=== PATIENT | female | born 1960 | race Caucasian/White ===

== ENCOUNTER 2016-11-20 10:56 | Inpatient (IN) ==
[2016-11-20] MEDS ORDERED: SODIUM CHLORIDE 0.9% 1,000 ML IV STA ×2 (11:51→12:14)
--- NOTE | 2016-11-20 12:02 | EKG Report ---
Stationary ECG Study [facility] ER Test Date: 11/20/2016 12:01:46 PM Pat Name: MALOU MÉNDEZ Department: Room: Gender: F Care Aid: : 1960 Requested by: Wyatt Reyes Order Number: [id number] Reading MD: MAYA MICHAEL Intervals [place] Rate: 78 P: 999 OK: 0 QRS: 146 QRSD: 214 T: 6 QT: 493 QTc: 527 Interpretive Statements ELECTRONIC VENTRICULAR PACEMAKER FREQUENT VPCs Electronically Signed On 11-23-16 13:46:34 CDT by MAYA MICHAEL [id number]
[2016-11-20 12:11] LABS: Basophils # 0.1 10*3/uL (0.0-0.2); Basophils % 0.7 % (0.0-0.8); Eosinophils # 0.1 10*3/uL (0.0-0.87); Eosinophils % 0.8 % (0.00-10.9); Hematocrit 41.5 VOL% (35.7-47.0); Hemoglobin 13.8 GM/DL (12.0-16.0); Immature Granulocytes % 0.5 %; Immature Granulocytes Absolute 0.04 #; Lymphocytes % 26.9 % (21.3-54.2); Mean Corpuscular HGB Conc 33.3 GM/DL (32-36); Mean Corpuscular Hemoglobin 29 PG (27-34); Mean Corpuscular Volume 88.3 FL (87-102); Mean Platelet Volume 13.3 FL (9.6-12.0); Monocytes # 0.6 10*3/uL (0.11-0.8); Monocytes % 7.5 % (1.7-12.7); NRBC # 0.06 10*3/uL; Neutrophils # 4.7 10*3/uL (1.4-7.4); Neutrophils % 63.6 % (38.7-73.9); Platelet Count 155 T/CUMM (130-400); Red Cell Distribution Width 19.1 % (9.3-17.3); White Blood Count 7.4 T/CUMM (4-12)
--- NOTE | 2016-11-20 12:15 | Emergency Department Note ---
Medina Mac Hilary, am scribing for, and in the presence of, Gregory Brooks MD 12: 01. Cecilia Mac James D, MD, personally performed the services described in this documentation, ascribed by Yani Haney in my presence, and it is both accurate and complete . Arrival - Arrival Chief Complaint: Altered Mental Status Stated Complaint: confusion,disoriented,CHF ED Nursing Triage Note: PER FAMILY PT HAS BEEN CONFUSED, REPETITIVE QUESTIONS AND WEAK FOR PAST SEVERAL DAYS, PT DENIES PAIN OR DISCOMFORT Mode of Arrival: Wheelchair Limitations: No Limitations Source: Patient, RN Notes Reviewed Time Seen by Provider: 11/20/16 11:51 - History of Present Illness HPI Narrative: Pt is a 56 y/o white female presenting to the ED with c/o confusion which onset 2 weeks ago. Her daughter is in the room and states that two weeks ago she started noticing that her mom was not making sense on the phone and forgetting what she was saying or what day it was. Pt confirms confusion but denies dysuria or vomiting. Pt has a PMHx of CHF. No other complaints or problems stated in the ED. Onset (ago): week(s) Allergies/Adverse Reactions: Allergies Allergy/AdvReac Type Severity Reaction Status Date / Time meperidine [From Demerol] AdvReac ANAPHYLAXIS Verified 11/20/16 11:16 Penicillins AdvReac ANAPHYLAXIS Verified 11/20/16 11:16 Home Medications: Home Medications Medication Instructions Recorded Confirmed Type Furosemide Tab [Lasix Tab] 20 mg PO BID DIURETIC #14 tablet 07/20/16 11/20/16 Rx Apixaban [Eliquis] 5 mg PO BID 11/20/16 11/20/16 History Carvedilol [Carvedilol] 25 mg PO BID 11/20/16 11/20/16 History Hydrocodone/Acetaminophen 1 tablet PO BID 11/20/16 11/20/16 History [Hydrocodon-Acetaminophn 10-325] LORazepam [Lorazepam] 1 mg PO TID 11/20/16 11/20/16 History Quetiapine Fumarate [Quetiapine 300 mg PO BEDTIME 11/20/16 11/20/16 History Fumarate] Quinapril HCl 40 mg PO DAILY 11/20/16 11/20/16 History Venlafaxine [Effexor] 225 mg PO DAILY 11/20/16 11/20/16 History Review of System - Review of System 12 point system: reviewed and no additional remarkable complaints except as stated - Review of System Constitutional: Present: other (confusion). Absent: fever Gastrointestinal: Absent: vomiting Genitourinary female: Absent: dysuria Medical,Surgical,& Family Hx - Medical History Cardio: History of: CHF - Social History Smoking Status: Current every day smoker Exam Physical Examination: GENERAL: This is a well-nourished, well-developed in no apparent distress. VITAL SIGNS: Temperature: 98 Pulse: 93 Respiratory: 18 Blood Pressure: 85/ 44 O2Sat: 98 HEENT: Head is normocephalic and atraumatic. Pupils are equally round and reactive to light. Extraocular movement are intact. Oropharynx is benign with moist mucous membranes. NECK: Neck is soft and supple without tenderness. There are no masses. There is no lymphadenopathy. LUNGS: Lungs are clear to auscultation bilaterally. Chest rises symmetrically. There is no chest wall tenderness. CV: Heart is regular rate and irregular rhythm but bradycardic without murmurs, rubs, or gallops. ABDOMEN: Abdomen is soft, non-tender to palpation. There are no abnormal masses palpated. There is no organomegaly. Bowel sounds are present and active. SKIN: Skin is warm and dry. No rash. EXTREMITIES: Patient has full range of motion without tenderness. There is no pedal edema. NEUROLOGIC: Awake, alert, and oriented x4. Cranial nerves II through XII are grossly intact. There are no motorsensory deficits. PSYCHIATRIC: Normal affect. Normal mood. Vital Signs: Vital Signs Temperature 98.0 F 11/20/16 11:29 Pulse Rate 34 L 11/20/16 12:30 Respiratory Rate 28 H 11/20/16 12:30 Blood Pressure 83/58 11/20/16 12:30 O2 Sat by Pulse Oximetry 100 11/20/16 12:30 Course - Consultations Consultation #1: Discussed with hospitalist. Patient will be admitted to their service. Time: 12:56 Results - Labs CBC & BMP: 11/20/16 11:57 11/20/16 11:57 Lab Results: I have reviewed the patients labs Labs: Laboratory Tests 11/20/16 12:19 Urine Color Anisa Urine Appearance Slightly hazy Urine Bilirubin Small H Urine Urobilinogen 4.0 H Laboratory Tests 11/20/16 11:57 Sodium 132 L Potassium 5.2 H Chloride 98 Carbon Dioxide 20 L Anion Gap 19.2 H BUN 32 H Creatinine 1.70 H Calculated Osmolality 269.5 L Total Bilirubin 3.40 H AST 137 H ALT 181 H Total Creatine Kinase 306 H CK-MB (CK-2) 9.0 H Total Protein 6.0 L Laboratory Tests 11/20/16 12:19 Urine Opiates Screen Positive H U Cannabinoids Screen Positive H Laboratory Tests 11/20/16 11/20/16 11:57 11:57 WBC 7.4 RBC 4.70 Hgb 13.8 Hct 41.5 RDW 19.1 H MPV 13.3 H Sodium 132 L Potassium 5.2 H Chloride 98 Carbon Dioxide 20 L Anion Gap 19.2 H BUN 32 H Creatinine 1.70 H Calculated Osmolality 269.5 L Total Bilirubin 3.40 H AST 137 H ALT 181 H Total Creatine Kinase 306 H CK-MB (CK-2) 9.0 H Troponin I 0.020 Total Protein 6.0 L Laboratory Tests 11/20/16 13:30 ABG pCO2 25.5 L ABG pO2 130.0 H ABG HCO3 16.6 L ABG Total CO2 12.6 L ABG Base Excess -9.9 L - Diagnostic Findings Procedure: Chest x-ray: report reviewed by me (Cardiomegaly without overt CHF. No acute process otherwise. Pacemaker device as before), CT: report reviewed by me (Head: No acute intracranial abnormality is identified. Diffuse atrophy with microvascular disease. Minimal left ethmoid sinusitis) Disposition Clinical Impression: Altered mental status, Polysubstance abuse, Elevated LFTs Case discussed with: patient Disposition: Still a Patient Condition: Stable
[2016-11-20 12:26] LABS: Apearance,Urine Slightly Hazy (Clear); Bacteria,Urine Occasional /HPF (Few); Bilirubin,Urine Small mg/dL (Negative); Blood, Urine Negative (Negative); Glucose,Urine (UA) Negative (Negative); Hyaline Casts,Urine 207 /LPF (0-3); Ketones,Urine 5 mg/dL (Negative); Mucus,Urine Occasional /LPF (Occasional); Nitrite,Urine Negative (Negative); Protein,Urine 100 MG/DL; RBC,Urine 5 /HPF (0-4); Squamous Epithelial Cell,Urine Occasional /HPF (0-10); Urine Color Amber (Yellow); Urine Specific Gravity 1.021 (1.001-1.035); WBC,Urine 4 /HPF (0-6)
--- NOTE | 2016-11-20 12:33 | CT Report ---
Referring physician: Gregory Brooks Exam: CT brain without contrast Date: 11/20/2016 Comparison: None Reason: Alteration of consciousness Technique: Axial images of the head were obtained without the use of contrast. Total DLP was 1073.10 mGy*cm. Findings: No hydrocephalus or midline shift is present. There is no evidence of an acute infarction, recent intracranial hemorrhage or abnormal mass effect. Diffuse atrophy and cerebral hypodensities. The osseous structures appear intact. The mastoid air cells are clear. Interval polypoidal mucosal findings in the left ethmoid air cells. Impression: No acute intracranial abnormality is identified. Diffuse atrophy with microvascular disease. Minimal left ethmoid sinusitis. The CT exam was performed using one or more of the following dose reduction techniques: Automated exposure control and adjustment of the mA and/or kV according to patient size. PROCEDURE INTERPRETED AT [facility] DEPARTMENT OF RADIOLOGY Final Report Signed by: Dr. Demi Zamorano
--- NOTE | 2016-11-20 12:41 | XRay Report ---
History: Smoker Date: 11/20/2016 Study: Chest x-ray single view Comparison exam: July 20, 2016 chest x-ray There is cardiomegaly. There is no mediastinal mass. The pulmonary vasculature is not engorged. A left subclavian dual-lead transvenous pacemaker is in place. The lungs and pleural spaces are generally clear. Osseous structures are unchanged. Impression: Cardiomegaly without overt CHF. No acute process otherwise. Pacemaker device as before PROCEDURE INTERPRETED AT [facility] DEPARTMENT OF RADIOLOGY Final Report Signed by: Dr. Philly Aleman
[2016-11-20 12:43] LABS: Albumin 3.5 G/DL (3.4-5.0); Bilirubin,Total 3.4 MG/DL (0.2-1.0); CKMB % 2.9 %; Calcium 9.3 MG/DL (8.5-10.1); Osmolality,Calculated 269.5 MOS/KG (273-304); Potassium 5.2 MMOL/L (3.5-5.1); Troponin I Only 0.02 NG/ML (0.00-0.045)
[2016-11-20 12:49] LABS: Barbiturates Screen,Urine Negative (Negative); Benzodiazepines Screen,Urine Negative (Negative); Cannabinoid Screen,Urine Positive (Negative); Opiate Screen,Urine Positive (Negative); Phencyclidine Screen,Urine Negative (Negative)
[2016-11-20 13:45] LABS: ABG Base Excess -9.9 MMOL/L (-2.5-2.5); ABG HCO3 16.6 MMOL/L (20-26); ABG PCO2 25.5 MM HG (35-48); ABG PH 7.353 (7.35-7.45); ABG TCO2 12.6 MMOL/L (23-27)
--- NOTE | 2016-11-20 14:15 | Hospitalist History & Physical ---
<Brenda Reyes - Last Filed: 11/20/16 14:20> Assessment and Plan (1) Hyperkalemia Status: Acute Assessment and plan: Potassium level noted at 5.2 at the time of admission. We will recheck in a.m. Current Visit: Yes (2) Altered mental status Status: Acute Assessment and plan: CT of the head was essentially negative. I think that this is strictly related to the mismanagement of her medications. In addition the patient did test positive for cannabis. The family reported that the patient does administer home medications as sometimes forgets which medicines that she has taken. Either way we will monitor and adjust medications as needed. We will hold all sedative agents until altered mental status improved Current Visit: Yes (3) Elevated LFTs Status: Acute Assessment and plan: LFTs were elevated at the time of admission. It is unsure whether the patient actually drinks. There may be a component of alcohol abuse that is contributing to this. Current Visit: Yes History of Present Illness Chief complaint: Altered mental status History of present illness: This is a very pleasant 56-year-old female that presented to the ED at [facility] this afternoon for evaluation of altered mental status. The patient has a medical history significant for congestive heart failure, anxiety, nicotine addiction,chronic pain,and depression. The patient reports no surgical history. The patient was brought in by her family who reports that the patient holliday has experienced an onset of confusion which started about 2 weeks ago. The family noticed a gradual change in her mentation when she started forgetting things and making repetitive statements. The family is at bedside. They report that the patient lives with her daughter however the daughter is never at home. At the time of ED presentation the patient was mildly hypotensive with the blood pressure noted at 83/58, and a fluid bolus was given. The patient's blood pressure responded appropriately. Labs were obtained which reported a sodium of 132, potassium 5.2, CO2 at 20, BUN is 32, AST of 137, ALT of 181, total bilirubin at 3.40 and creatinine at 1.7. Arterial blood gases were obtained which reported a pH at 7.353, PCO2 at 25.5, PO2 at 130, HC03 at 16.6. Cardiac enzymes were obtained which reported a total CK at 306, CK-MB at 9.0, and troponin at 0.020. Urinalysis was obtained which reported a small amount of bilirubin and urine urobilinogen at 4.0 Urine toxicology was obtained which reported positive findings of opioids and cannabinoids. After brief discussion with both Dr. Brooks and Dr. Villarreal, the patient will be admitted to the hospitalist services for continuation of care. Home Medications Medication Instructions Recorded Confirmed Type Furosemide Tab [Lasix Tab] 20 mg PO BID DIURETIC #14 tablet 07/20/16 11/20/16 Rx Apixaban [Eliquis] 5 mg PO BID 11/20/16 11/20/16 History Carvedilol [Carvedilol] 25 mg PO BID 11/20/16 11/20/16 History Hydrocodone/Acetaminophen 1 tablet PO BID 11/20/16 11/20/16 History [Hydrocodon-Acetaminophn 10-325] LORazepam [Lorazepam] 1 mg PO TID 11/20/16 11/20/16 History Quetiapine Fumarate [Quetiapine 300 mg PO BEDTIME 11/20/16 11/20/16 History Fumarate] Quinapril HCl 40 mg PO DAILY 11/20/16 11/20/16 History Venlafaxine [Effexor] 225 mg PO DAILY 11/20/16 11/20/16 History Allergies Allergy/AdvReac Type Severity Reaction Status Date / Time meperidine [From Demerol] AdvReac ANAPHYLAXIS Verified 11/20/16 11:16 Penicillins AdvReac ANAPHYLAXIS Verified 11/20/16 11:16 Medical,Surgical,& Family Hx - Medical History Cardio: History of: CHF - Social History Smoking Status: Current every day smoker Exam - Constitutional Vitals: Period Temp Pulse Resp BP Sys/Morse Pulse Ox Last 24 Hr 98 F-98.0 F 34-93 12-28 55-103/44-69 87-100 General appearance: normal weight, no acute distress - Head Head exam: Present: normal inspection, normocephalic, atraumatic - Eye Eye exam: Present: EOMI. Absent: conjunctival injection Pupils: Present: REMBERTO, normal accommodation - ENT ENT exam: Present: normal exam, normal external ear exam, normal oropharynx - Neck Neck exam: Present: normal inspection. Absent: lymphadenopathy, meningismus, tenderness, thyromegaly - Respiratory Respiratory exam: Present: clear to auscultation bilaterally. Absent: rales, rhonchi, stridor, wheezes - Cardiovascular Cardiovascular exam: Present: bradycardia, regular rate and rhythm - GI/Abdominal GI/Abdominal exam: Present: normal bowel sounds, soft - Extremities Exam Extremities exam: Present: normal inspection, normal capillary refill, full ROM. Absent: edema - Back Exam Back exam: Present: normal inspection - Neurological Exam Neurological exam: Present: alert, oriented X3 - Psychiatric Psychiatric exam: Present: normal affect, normal mood - Skin Skin exam: Present: normal color, warm, dry Results - Labs CBC & BMP: 11/20/16 11:57 11/20/16 11:57 Lab Results: I have reviewed the past 24 hour labs <AnaraFaraz - Last Filed: 11/20/16 14:51> History of Present Illness History of present illness: Ms. Hall is a 56 year old female Exam - Constitutional Vitals: Period Temp Pulse Resp BP Sys/Morse Pulse Ox Last 24 Hr 98 F-98.0 F 34-93 12-28 55-103/44-69 87-100 Results - Labs CBC & BMP: 11/20/16 11:57 11/20/16 11:57
[2016-11-20 17:14] LABS: Hepatitis A Ab IgM Quant 0.07 Index; Hepatitis A Ab IgM Result Negative (Negative); Hepatitis B Core IgM Quant 0.18 Index; Hepatitis B Core IgM Result Negative (Negative); Hepatitis B Surface Ag Quant 0.22 Index; Hepatitis B Surface Ag Result Negative (Negative); Hepatitis C Virus Ab Quant 0.14 Index; Hepatitis C Virus Ab Result Negative (Negative)
--- NOTE | 2016-11-20 19:02 | Ultrasound Report ---
Exam: US abdomen Date:11/20/2016 2:49 PM Indication: Abdominal pain Comparison: None Findings: Liver: 18.3 cm. Liver margin is slightly irregular. There are no focal lesions identified. Hepatic and portal veins appear patent with normal direction of flow. Gallbladder: Extensive sludge/echogenic debris noted throughout the gallbladder lumen. Gallbladder wall is not thickened. There are no definite stones visualized. There is no pericholecystic fluid. Sonographic Hill sign is reportedly negative. CBD: Common bile duct measures 0.47 cm Pancreas: Visualized portion appears unremarkable. Kidneys Right kidney measures 9.2 x 2.8 x 3.6 cm. Left kidney measures 8.4 x 3.8 x 2 point centimeters. There is no hydronephrosis bilaterally. Minimal nonspecific perinephric fluid is suggested adjacent to the left kidney. No suspicious lesions are identified. Renal cortical echogenicity and thickness appear within normal limits. Aorta IVC: IVC is patent. Abdominal aorta is nonaneurysmal measuring up to 1.2 cm diameter. Spleen: 7.5 cm maximum dimension with no focal lesions. Impression: 1. No acute sonographic abnormality in the abdomen. 2. Extensive echogenicity throughout the gallbladder lumen likely representing sludge and/or microstones. No sonographic evidence of acute cholecystitis. 3. Minimal left perinephric fluid is of uncertain significance. Correlate with urinalysis. No hydronephrosis. PROCEDURE INTERPRETED AT [facility] DEPARTMENT OF RADIOLOGY Final Report Signed by: Agustín Cyr
[2016-11-20] MEDS ORDERED: SODIUM CHLORIDE 0.9% 1,000 ML IV ONE (22:56)
[2016-11-20] MEDS ORDERED: PROMETHAZINE 25 MG TABLET PO PRN (22:56)
[2016-11-20] MEDS ORDERED: ACETAMINOPHEN 325 MG TABLET PO PRN (22:56)
[2016-11-20] MEDS ORDERED: ONDANSETRON 4 MG/2 ML VIAL IV PRN (22:56)
[2016-11-20 23:51] LABS: Basophils % 0.1 % (0.0-0.8); Eosinophils % 0.1 % (0.00-10.9); Hematocrit 39.5 VOL% (35.7-47.0); Immature Granulocytes % 0.6 %; Immature Granulocytes Absolute 0.05 #; Lymphocytes # 1.4 10*3/uL (1.4-4.0); Lymphocytes % 18.4 % (21.3-54.2); Mean Corpuscular HGB Conc 32.9 GM/DL (32-36); Mean Corpuscular Hemoglobin 30 PG (27-34); Mean Corpuscular Volume 90.2 FL (87-102); Mean Platelet Volume 12.9 FL (9.6-12.0); Monocytes # 0.5 10*3/uL (0.11-0.8); Monocytes % 6.6 % (1.7-12.7); NRBC # 0.06 10*3/uL; Neutrophils # 5.8 10*3/uL (1.4-7.4); Neutrophils % 74.2 % (38.7-73.9); Platelet Count 149 T/CUMM (130-400); Red Blood Count 4.38 MC/CUMM (3.8-5.5); White Blood Count 7.8 T/CUMM (4-12)
[2016-11-21] MEDS: PANTOPRAZOLE 40 MG VIAL IV SCH ×2 (00:25→09:24)
[2016-11-21] MEDS: NOREPINEPHRINE 8 MG in SODIUM CHLORIDE 0.9% 242 ML IV SCH ×5 (01:27→19:51)
[2016-11-21] MEDS ORDERED: FUROSEMIDE 40 MG/4 ML VIAL IV ONE (02:54)
[2016-11-21] MEDS ORDERED: ETOMIDATE 20 MG/10 ML VIAL IV ONE ×2 (03:10→03:14)
[2016-11-21] MEDS ORDERED: NOREPINEPHRINE 4 MG/4 ML VIAL IV ONE (03:10)
[2016-11-21] MEDS ORDERED: EPINEPHrine 1 MG/ML VIAL ONE (03:10)
[2016-11-21] MEDS ORDERED: SUCCINYLCHOLINE 200 MG/10 ML VIAL ONE (03:14)
[2016-11-21] MEDS ORDERED: DOBUTamine 500 MG/250 ML PREMIX IV ONE (03:20)
[2016-11-21] MEDS ORDERED: HEPARIN/NACL 0.9% 2 UNITS/ML 500 ML IV ONE (03:46)
[2016-11-21] MEDS ORDERED: SODIUM CHLORIDE 0.9% 1,000 ML IV ONE (04:21)
--- NOTE | 2016-11-21 04:39 | Event Note ---
CODE BLUE note Earlier tonight patient was transferred to the ICU shortly before midnight due to shortness of breath and hypotension. At around 3:05 AM she became very short of breath, and at 3:10 AM she suddenly lost her pulse. ACLS was started, she was intubated by the ER physician, and she ultimately regained a pulse. A central line and arterial line were placed and patient was started on dobutamine and normal saline bolus. At this time she appears cyanotic, pulse is 81, blood pressure 90/60, unable to pickup driver set due to poor waveform. Chest x-ray shows proper ET tube placement, otherwise not a marked change from previous chest x-ray. Serum creatinine 1.7, she is hemodynamically unstable at this time. Will empirically treat her for PE and obtain CT PE protocol once she is more hemodynamically stable transport to CT. PROCEDURE NOTE: Right femoral central line placement. Indication: CV access The right groin was prepped and draped per sterile technique and anesthetized with lidocaine. The femoral artery pulse was palpated, and the finder needle was advanced into the femoral vein with dark nonpulsatile blood return. The guidewire was advanced through the finder needle into the femoral vein. A small skin incision was made, the needle was removed, and the dilator was applied over the wire. The dilator was removed and the arrow triple-lumen catheter was advanced easily over the wire. Each port aspirated and flushed with normal saline. The central line was sutured into place. Complications: none EBL: minimal PROCEDURE NOTE: Right femoral arterial line placement Indication: Intra-arterial BP monitoring s/p cardiac arrest The right groin was prepped and draped per sterile technique and anesthetized with lidocaine. The right femoral artery was detected with Doppler and palpated weakly palpable, The finder needle was inserted into the artery with bright red pulsatile blood return. The guidewire was advanced through the finder needle into the femoral artery. A small skin incision was made, the needle was removed, and the arterial catheter was advanced over the wire into place, the wire was removed, and the line was sutured into place. A-line was connected to a transducer with good waveform. Blood pressure approximately 90/ 60 EBL: minimal Complications: none Total critical care time 80 minutes
[2016-11-21 04:51] LABS: Basophils % 0.1 % (0.0-0.8); Eosinophils % 0.1 % (0.00-10.9); Hematocrit 39.5 VOL% (35.7-47.0); Hemoglobin 12.2 GM/DL (12.0-16.0); Immature Granulocytes % 1.9 %; Immature Granulocytes Absolute 0.14 #; Lymphocytes # 1.2 10*3/uL (1.4-4.0); Mean Corpuscular HGB Conc 30.9 GM/DL (32-36); Mean Corpuscular Hemoglobin 30 PG (27-34); Mean Corpuscular Volume 95.4 FL (87-102); Mean Platelet Volume 12.6 FL (9.6-12.0); Monocytes # 0.3 10*3/uL (0.11-0.8); Monocytes % 4.5 % (1.7-12.7); Neutrophils # 5.9 10*3/uL (1.4-7.4); Neutrophils % 77.4 % (38.7-73.9); Platelet Count 126 T/CUMM (130-400); Red Blood Count 4.14 MC/CUMM (3.8-5.5); Red Cell Distribution Width 19.1 % (9.3-17.3); White Blood Count 7.6 T/CUMM (4-12)
[2016-11-21] MEDS: DOBUTamine 500 MG/250 ML PREMIX IV SCH ×2 (04:51→17:01)
[2016-11-21] MEDS ORDERED: LORazepam 2 MG/1 ML VIAL ONE (04:59)
[2016-11-21] MEDS ORDERED: LORazepam 2 MG/1 ML VIAL IV PRN ×2 (05:11→08:00)
[2016-11-21] MEDS ORDERED: ENOXAPARIN 80 MG/0.8 ML SYRINGE SUBCUT ONE (05:16)
[2016-11-21 05:19] LABS: ABG Base Excess -24.9 MMOL/L (-2.5-2.5); ABG HCO3 7.4 MMOL/L (20-26); ABG Oxygen Saturation 91.9 % (95-100); ABG PCO2 24.6 MM HG (35-48); ABG TCO2 5.8 MMOL/L (23-27)
[2016-11-21 05:22] LABS: ABG PH 6.996 (7.35-7.45)
[2016-11-21] MEDS ORDERED: SODIUM BICARBONATE 50 MEQ/50 ML VIAL IV ONE ×3 (05:25→06:06)
[2016-11-21 05:30] LABS: Albumin 2.6 G/DL (3.4-5.0); Bilirubin,Total 2.8 MG/DL (0.2-1.0); CKMB % 4.5 %; Calcium 7.8 MG/DL (8.5-10.1); Potassium 5.7 MMOL/L (3.5-5.1); Total Protein 4.7 G/DL (6.4-8.3); Troponin I Only 0.043 NG/ML (0.00-0.045)
[2016-11-21 07:21] LABS: ABG Base Excess -16.4 MMOL/L (-2.5-2.5); ABG HCO3 8.4 MMOL/L (20-26); ABG Oxygen Saturation 99.5 % (95-100); ABG PH 7.261 (7.35-7.45); ABG PO2 409.4 MM HG (80-95)
[2016-11-21 07:23] LABS: ABG PCO2 19.1 MM HG (35-48)
--- NOTE | 2016-11-21 07:27 | Pulmonology Consult Note ---
History of Present Illness Chief complaint: Mechanical ventilation. Acute cardiac arrest. Severe metabolic acid History of present illness: Ms. Hall is a 56 year old white female whom I been asked see in pulmonary consultation for evaluation and treatment of pulmonary status and management of mechanical ventilation. This patient presented [facility] emergency room with an altered mental status. Her records say that she had an onset of confusion over about a 2 week period of time. The family had noticed this. The patient's toxicology was positive for cannabinoids and opioids. CT of her head was negative. Family went on to say that the patient lives with her daughter but her daughter is never home. Patient was admitted to the floor and did well and then became somewhat hypotensive had some shortness of breath and was moved to intensive care unit. Later on she suddenly became severely short of breath and hypoxemia. Her pacer continue to work but she had no pulses and eventually required intubation. She was found to have a severe metabolic acidosis. She has required fluid and she is on not to pressor agents. Said that somewhere along the way she vomited coffee ground material. Patient has been on Eliquis among other home medicines. See list below. At this point the remainder the review of systems is negative. Patient is not able to give me any additional history as she is sedated. Allergies. Demerol and penicillin Home medicines see below Past history. Heart disease. Congestive heart failure. Cardiac pacemaker. Chronic anticoagulation. Tobacco abuse. History of anxiety depression. Social history. Smokes on a daily basis. Uses opioids. See drug screen. She is followed from a cardiology standpoint by Dr. Wu in [facility] Family history. Not avail Admit chest x-ray. Significant cardiomegaly. Did not see any significant interstitial edema. ABGs. Early on the patient had a pH of 7.35, PCO2 25.5, PO2 of 130 and a bicarb of 16.6. Later on on mechanical ventilation pH was 6.996, PCO2 is 24.6, PO2 is 104 bicarb 7.4. Lab. Sodium is 136. Potassium is 5.7. Admit creatinine was 1.70 now 1.90. Transaminases are markedly elevated. Total bilirubin admission was 3.4. Alkaline [place] is normal. Total CPK is 521. Troponins are negative. Admit nitrated peptide was 2908 and a follow-up is 4544. White blood cell count is 7600. H&H is 12.2/39.5. Platelets are 126,000. Toxicology. Positive for opiates and cannabinoids Vital signs. See below. Note the patient's on 2 pressor agents. Chest. Clear Heart far lateral PMI Abdomen nondistended. Only rare bowel sounds. Lower extremities. Very mild skin changes of chronic venous stasis. Neck. Symmetrical. No meningismus. Lymphatics. No submandibular cervical supraclavicular adenopathy. Face. Symmetrical. Lips and tongue appear to be normal. Psychiatric impossible Neurologic impossible. The remainder the exam is noncontributory. Impression. 1. Known heart disease with a past history of congestive heart failure and with acute congestive heart failure 2. History of cardiac arrhythmia requiring cardiac pacemaker 3. Acute cardiac arrest 4. Tobacco abuse 5. Toxicology. Positive opiates and cannabinoids. 6. Acute on chronic renal failure. 7. Severe hypotension with metabolic acidosis requiring pressor agents. 8. Abnormal liver function tests. 9. See above Plan. #1 repeat ABGs. 2. We will make ventilator adjustments. Patient will be put on the weaning protocol and physical therapy protocol. 3. Proton pump inhibitors 4. Follow-up chest x-ray and ABGs 5. Ammonia level 6. Thyroid function tests. 6. Doppler venograms of the lower extremities 7. Echocardiogram 8. Cardiology consultation Home Medications Medication Instructions Recorded Confirmed Type Furosemide Tab [Lasix Tab] 20 mg PO BID DIURETIC #14 tablet 07/20/16 11/20/16 Rx Apixaban [Eliquis] 5 mg PO BID 11/20/16 11/20/16 History Carvedilol [Carvedilol] 25 mg PO BID 11/20/16 11/20/16 History Hydrocodone/Acetaminophen 1 tablet PO BID 11/20/16 11/20/16 History [Hydrocodon-Acetaminophn 10-325] Quetiapine Fumarate [Quetiapine 300 mg PO BEDTIME 11/20/16 11/20/16 History Fumarate] Quinapril HCl 40 mg PO DAILY 11/20/16 11/20/16 History Venlafaxine [Effexor] 225 mg PO DAILY 11/20/16 11/20/16 History Allergies Allergy/AdvReac Type Severity Reaction Status Date / Time meperidine [From Demerol] AdvReac ANAPHYLAXIS Verified 11/20/16 11:16 Penicillins AdvReac ANAPHYLAXIS Verified 11/20/16 11:16 Exam (Pulmonay) H&P - Constitutional Vitals: Period Temp Pulse Resp BP Sys/Morse Pulse Ox Last 24 Hr 96.8 F-98.0 F 34-125 12-29 55-142/44-80 87-100 Medical,Surgical,& Family Hx - Medical History Cardio: History of: CHF - Social History Smoking Status: Current every day smoker Frequency of Alcohol Use: None Type of Drug Use: Marijuana Results - Labs CBC & BMP: 11/21/16 04:39 11/21/16 04:39
[2016-11-21 08:11] LABS: CKMB % 4.3 %
[2016-11-21 08:13] LABS: Troponin I Only 0.076 NG/ML (0.00-0.045)
[2016-11-21] MEDS: LORazepam 2 MG/1 ML VIAL IV PRN ×4 (08:18→12:52)
[2016-11-21] MEDS: SODIUM BICARB INJ 150 MEQ in DEXTROSE 5% 850 ML IV SCH ×3 (09:13→17:00)
[2016-11-21] MEDS: VENLAFAXINE 75 MG TABLET PO SCH (09:16)
--- NOTE | 2016-11-21 10:20 | EKG Report ---
Stationary ECG Study [facility] Test Date: 11/21/2016 1:19:50 AM Pat Name: MALOU MÉNDEZ Department: Room: 109 Gender: F Dust Sampler: NIKHIL BUSTILLOS : 1960 Requested by: Pancho Menezes Order Number: [id number] Reading MD: FRANSISCO GENTILE Intervals [place] Rate: 69 P: -56 TX: 142 QRS: 61 QRSD: 187 T: -50 QT: 468 QTc: 488 Interpretive Statements SINUS RHYTHM INTRAVENTRICULAR CONDUCTION DELAY Electronically Signed On 11-24-16 12:46:34 CDT by FRANSISCO GENTILE [email or web address]
[2016-11-21 10:24] LABS: Apearance,Urine CLOUDY (Clear); Bacteria,Urine Occasional /HPF (Few); Bilirubin,Urine Negative (Negative); Blood, Urine Large mg/dL (Negative); Glucose,Urine (UA) Negative (Negative); Hyaline Casts,Urine 11 /LPF (0-3); Ketones,Urine Negative (Negative); Mucus,Urine Occasional /LPF (Occasional); Nitrite,Urine Negative (Negative); Protein,Urine 100 MG/DL; RBC,Urine 54 /HPF (0-4); Squamous Epithelial Cell,Urine Occasional /HPF (0-10); Urine Color Dark yellow (Yellow); Urine Specific Gravity 1.012 (1.001-1.035); WBC,Urine 3 /HPF (0-6)
--- NOTE | 2016-11-21 10:42 | Hospitalist Progress Note ---
Assessment and Plan - Time spent with patient Time spent with patient: Greater than 30 minutes (1) NADIA (acute kidney injury) Status: Acute Current Visit: Yes (2) Metabolic acidosis Status: Acute Current Visit: Yes (3) Cardiorespiratory failure Status: Acute Current Visit: Yes (4) Altered mental status Status: Acute Current Visit: Yes (5) Polysubstance abuse Status: Acute Current Visit: Yes (6) Elevated LFTs Status: Acute Current Visit: Yes (7) Hyperkalemia Status: Acute Assessment and plan: Already on 2 pressors with borderline Bp, monitor. Send CRP/ESR and blood cultures though based on her total picture at this time there does not seem to be an infective process going on. Dopplers have been ordered to rule out an embolic event, follow report. CT chest only when she is hemodynamically stable Nephrology has been consulted for her Oliguric NADIA. On IVF already, continue monitoring UOP. She cannot tolerated Lasix with her current Bp and she may end up need Hemodialysis for acidosis/hyperkalemia/NADIA and oliguria. With cardiomegaly, CMP and cardioresp failure, cardiology has been consulted. We will see what her echo shows. Send PTHi Monitor FSG and treat hypoglycemia Protonix IV 40mg daily SCD hose for DVT ppx I saw her family being briefed by other members of the management team Prognosis at this point is at best gaurded Current Visit: Yes Hospitalist: Subjective Interval history: Events of last night noted, went into cardioresp failure and ended up being intubated. Remain on the vent this a.m and on 2 pressors almost maxed out. Restless and agitated, difficulty with sedation because of long-term use of benzodiazepines. Ativan keeps her for only a 30mins and she becomes restless again. However being cautious with sedation because of her Bp Oliguric with UOP of about 10cc/hr. Cr stayed about the same. Severe metabolic acidosis requiring Bicarb Unofficial echo shows EF 12%. Elevated Trop, but this is in the face of her worsening renal function Small amount of coffee ground on NGT Nothing to suggest an infective process Exam - Constitutional Vitals: Period Temp Pulse Resp BP Sys/Morse Pulse Ox Last 24 Hr 96.8 F-98.0 F 34-125 12-29 55-142/44-80 87-100 General appearance: severe distress, other (Intubated, ventilator.) - Head Head exam: Present: normocephalic, atraumatic (ET tube in place) - Respiratory Respiratory exam: Present: other (Transmitted breath sounds) - Cardiovascular Cardiovascular exam: Present: regular rate and rhythm (Paced rhythm) - GI/Abdominal GI/Abdominal exam: Present: normal bowel sounds, hypoactive bowel sounds. Absent: distended - Extremities Exam Extremities exam: Absent: edema - Neurological Exam Neurological exam: Present: other (Sedated) - Skin Skin exam: Present: normal color, warm, dry, intact Results - Labs CBC & BMP: 11/21/16 04:39 11/21/16 04:39 Lab Results: I have reviewed the past 24 hour labs
[2016-11-21 11:15] LABS: Magnesium 1.8 MG/DL (1.8-2.4); Osmolality,Calculated 287.3 MOS/KG (273-304); Potassium 5.1 MMOL/L (3.5-5.1)
--- NOTE | 2016-11-21 11:46 | Cardiology Consult Note ---
Assessment and Plan (1) Metabolic acidosis Status: Acute Assessment and plan: The patient is critically ill in the intensive care unit on the ventilator and has a profound high anion gap metabolic acidosis with marked elevation of her lactic acid level. I am wondering if the patient is septic. Blood cultures are pending. Current Visit: Yes (2) Cardiomyopathy Status: Acute Assessment and plan: Apparently the patient has a long-standing history of a cardiomyopathy. I will review her echocardiogram. Current Visit: Yes (3) Pacemaker Status: Acute Assessment and plan: This appears to be functioning normally at this time. Current Visit: Yes (4) NADIA (acute kidney injury) Status: Acute Current Visit: Yes (5) Altered mental status Status: Acute Assessment and plan: The patient presented with altered mental status which could be related to her polysubstance use/abuse, but also could be related to some sort of infection or sepsis, or this could be related to an event such as a stroke. Current Visit: Yes (6) Cardiorespiratory failure Status: Acute Assessment and plan: Patient apparently lost her blood pressure transiently which responded to vasopressors. She did not lose her heart rhythm. I am most suspicious that this could be some sort of sepsis. Pulmonary embolus is another possibility and workup is underway. Current Visit: Yes (7) Elevated LFTs Status: Acute Assessment and plan: The patient has elevation of her liver function tests and very low albumin and globulin levels. The etiology of this liver function abnormality remains unclear. Current Visit: Yes (8) Polysubstance abuse Status: Acute Assessment and plan: It is certainly possible that this is playing a role in the patient's presentation. Current Visit: Yes (9) GI bleed Status: Acute Assessment and plan: I think we need to consult gastroenterology for this. They can also assist in evaluating her abnormal liver function. Current Visit: Yes History of Present Illness - Consult Narrative History of present illness: Ms. Hall is a 56 year old female who is currently intubated and sedated in the intensive care unit. I do not have any old medical records on her to review. I cannot get any history from the patient today. The history is obtained from the chart and the nursing staff. Apparently the patient has a long-standing history of a cardiomyopathy and a pacemaker which is followed by Dr. Wu in [place]. The patient also has a history of polysubstance abuse including cannabinoids, opiates, and benzodiazepines. She was brought to the hospital because of gradual onset of mental status changes and confusion. Overnight, the patient coded. She did not lose her heart rhythm but did lose her pulse transiently which responded to vasopressors. Her laboratory tests show profound acidosis and liver function test abnormalities of unclear etiology. Her cardiac enzyme panel is not consistent with an acute coronary syndrome. Her EKG shows a paced rhythm. While I was seeing the patient, her NG suction went from a black color to bright red suggesting upper gastrointestinal bleeding. It is unclear if this may be related to her hypotensive spell. CC: Pancho Menezes MD - Home Medications and Allergies Home Medications: Home Medications Medication Instructions Recorded Confirmed Type Furosemide Tab [Lasix Tab] 20 mg PO BID DIURETIC #14 tablet 07/20/16 11/20/16 Rx Apixaban [Eliquis] 5 mg PO BID 11/20/16 11/20/16 History Carvedilol [Carvedilol] 25 mg PO BID 11/20/16 11/20/16 History Hydrocodone/Acetaminophen 1 tablet PO BID 11/20/16 11/20/16 History [Hydrocodon-Acetaminophn 10-325] Quetiapine Fumarate [Quetiapine 300 mg PO BEDTIME 11/20/16 11/20/16 History Fumarate] Quinapril HCl 40 mg PO DAILY 11/20/16 11/20/16 History Venlafaxine [Effexor] 225 mg PO DAILY 11/20/16 11/20/16 History Allergies/Adverse Reactions: Allergies Allergy/AdvReac Type Severity Reaction Status Date / Time meperidine [From Demerol] AdvReac ANAPHYLAXIS Verified 11/20/16 11:16 Penicillins AdvReac ANAPHYLAXIS Verified 11/20/16 11:16 ROS unobtainable: due to endotracheal tube Medical,Surgical,& Family Hx - Medical History Cardio: History of: CHF - Social History Smoking Status: Current every day smoker Frequency of Alcohol Use: None Type of Drug Use: Marijuana Physical Examination Vital Signs Temp Pulse Resp BP Pulse Ox 98 F 93 H 18 85/44 98 11/20/16 11:11 11/20/16 11:11 11/20/16 11:11 11/20/16 11:11 11/20/16 11:11 Other: General: Appears well developed, well nourished, intubated and sedated in the intensive care unit HEENT: Normocephalic, atraumatic, NG tube in place suctioning dark fluid Neck: Supple Neck, Midline Trachea, No Bruit Cardiac: Regular rhythm, 2 out of 6 murmur, no gallop, no rub Lungs: Coarse breath sounds per the ventilator Neuro: Intubated and sedated, unable to do proper neurologic exam. She is moving all extremities Abdomen: Soft, Active Bowel Sounds, No Masses, No Pulsations/Bruits Skin: Normal color, no rash Extremities: No Clubbing, No Cyanosis, No Edema, Normal Upper Extr. Pulses, her feet are cool to the touch Musculoskeletal: No acute abnormality noted Psychiatric: Unable to assess as the patient is intubated and sedated Result/EKG - Labs CBC & BMP: 11/21/16 04:39 11/21/16 07:32 Lab Results: I have reviewed the past 24 hour labs Labs: Laboratory Results - last 24 hr 11/20/16 11/20/16 11/20/16 11:57 11:57 11:57 WBC 7.4 RBC 4.70 Hgb 13.8 Hct 41.5 MCV 88.3 MCH 29 MCHC 33.3 RDW 19.1 H Plt Count 155 MPV 13.3 H Neut % (Auto) 63.6 Lymph % (Auto) 26.9 [place] % (Auto) 7.5 Eos % (Auto) 0.8 Baso % (Auto) 0.7 Neut # (Auto) 4.7 Lymph # (Auto) 2.0 [place] # (Auto) 0.6 Eos # (Auto) 0.1 Baso # (Auto) 0.1 Immature Gran % 0.5 Nucleated RBC % 0.8 Immature Gran # 0.04 Nucleated RBCs # 0.06 ABG pH ABG pCO2 ABG pO2 ABG HCO3 ABG Total CO2 ABG O2 Saturation ABG Base Excess Sodium 132 L Potassium 5.2 H Chloride 98 Carbon Dioxide 20 L Anion Gap 19.2 H BUN 32 H Creatinine 1.70 H GFR Calculation 34 BUN/Creatinine Ratio 18.00 Glucose 80 POC Glucose Calculated Osmolality 269.5 L Lactic Acid Calcium 9.3 Magnesium Total Bilirubin 3.40 H AST 137 H ALT 181 H Alkaline Phosphatase 101 Ammonia 14 Total Creatine Kinase 306 H CK-MB (CK-2) 9.0 H CK and CKMB Interp 2.9 Troponin I 0.020 C-Reactive Protein B-Natriuretic Peptide Total Protein 6.0 L Albumin 3.5 Globulin 2.5 Albumin/Globulin Ratio 1.4 Urine Color Urine Appearance Urine pH Ur Specific [place] Urine Protein Urine Glucose (UA) Urine Ketones Urine Blood Urine Nitrate Urine Bilirubin Urine Urobilinogen Urine Leukocytes Urine RBC Urine WBC Ur Squamous Epith Cells Urine Bacteria Cellular Casts Hyaline Casts Urine Mucus Ur Culture Indicated? Ur Random Creatinine U Random Total Protein Ur Random Sodium Ur Random Urea Nitrogn Urine Opiates Screen Ur Barbiturates Screen Ur Phencyclidine Scrn U Amphetamine/Methamph U Benzodiazepines Scrn U Cocaine Metab Screen U Cannabinoids Screen Hepatitis A IgM Ab Hep Bs Antigen Hep B Core IgM Ab Hepatitis C Antibody 11/20/16 11/20/16 11/20/16 12:19 12:19 13:03 WBC RBC Hgb Hct MCV MCH MCHC RDW Plt Count MPV Neut % (Auto) Lymph % (Auto) [place] % (Auto) Eos % (Auto) Baso % (Auto) Neut # (Auto) Lymph # (Auto) [place] # (Auto) Eos # (Auto) Baso # (Auto) Immature Gran % Nucleated RBC % Immature Gran # Nucleated RBCs # ABG pH ABG pCO2 ABG pO2 ABG HCO3 ABG Total CO2 ABG O2 Saturation ABG Base Excess Sodium Potassium Chloride Carbon Dioxide Anion Gap BUN Creatinine GFR Calculation BUN/Creatinine Ratio Glucose POC Glucose Calculated Osmolality Lactic Acid Calcium Magnesium Total Bilirubin AST ALT Alkaline Phosphatase Ammonia Total Creatine Kinase CK-MB (CK-2) CK and CKMB Interp Troponin I C-Reactive Protein B-Natriuretic Peptide 2908 H Total Protein Albumin Globulin Albumin/Globulin Ratio Urine Color Anisa Urine Appearance Slightly hazy Urine pH 5.0 Ur Specific [place] 1.021 Urine Protein 100 Urine Glucose (UA) Negative Urine Ketones 5 Urine Blood Negative Urine Nitrate Negative Urine Bilirubin Small H Urine Urobilinogen 4.0 H Urine Leukocytes Negative Urine RBC 5 Urine WBC 4 Ur Squamous Epith Cells Occasional Urine Bacteria Occasional Cellular Casts 39 Hyaline Casts 207 Urine Mucus Occasional Ur Culture Indicated? Results to follow Ur Random Creatinine U Random Total Protein Ur Random Sodium Ur Random Urea Nitrogn Urine Opiates Screen Positive H Ur Barbiturates Screen Negative Ur Phencyclidine Scrn Negative U Amphetamine/Methamph Negative U Benzodiazepines Scrn Negative U Cocaine Metab Screen Negative U Cannabinoids Screen Positive H Hepatitis A IgM Ab Hep Bs Antigen Hep B Core IgM Ab Hepatitis C Antibody 11/20/16 11/20/16 11/20/16 13:03 13:30 16:19 WBC RBC Hgb Hct MCV MCH MCHC RDW Plt Count MPV Neut % (Auto) Lymph % (Auto) [place] % (Auto) Eos % (Auto) Baso % (Auto) Neut # (Auto) Lymph # (Auto) [place] # (Auto) Eos # (Auto) Baso # (Auto) Immature Gran % Nucleated RBC % Immature Gran # Nucleated RBCs # ABG pH 7.353 ABG pCO2 25.5 L ABG pO2 130.0 H ABG HCO3 16.6 L ABG Total CO2 12.6 L ABG O2 Saturation 99.0 ABG Base Excess -9.9 L Sodium Potassium Chloride Carbon Dioxide Anion Gap BUN Creatinine GFR Calculation BUN/Creatinine Ratio Glucose POC Glucose 95 Calculated Osmolality Lactic Acid Calcium Magnesium Total Bilirubin AST ALT Alkaline Phosphatase Ammonia Total Creatine Kinase CK-MB (CK-2) CK and CKMB Interp Troponin I C-Reactive Protein B-Natriuretic Peptide Total Protein Albumin Globulin Albumin/Globulin Ratio Urine Color Urine Appearance Urine pH Ur Specific [place] Urine Protein Urine Glucose (UA) Urine Ketones Urine Blood Urine Nitrate Urine Bilirubin Urine Urobilinogen Urine Leukocytes Urine RBC Urine WBC Ur Squamous Epith Cells Urine Bacteria Cellular Casts Hyaline Casts Urine Mucus Ur Culture Indicated? Ur Random Creatinine U Random Total Protein Ur Random Sodium Ur Random Urea Nitrogn Urine Opiates Screen Ur Barbiturates Screen Ur Phencyclidine Scrn U Amphetamine/Methamph U Benzodiazepines Scrn U Cocaine Metab Screen U Cannabinoids Screen Hepatitis A IgM Ab Negative Hep Bs Antigen Negative Hep B Core IgM Ab Negative Hepatitis C Antibody Negative 11/20/16 11/21/16 11/21/16 23:47 02:57 04:39 WBC 7.8 7.6 RBC 4.38 4.14 Hgb 13.0 12.2 Hct 39.5 39.5 MCV 90.2 95.4 MCH 30 30 MCHC 32.9 30.9 L RDW 19.0 H 19.1 H Plt Count 149 126 L MPV 12.9 H 12.6 H Neut % (Auto) 74.2 H 77.4 H Lymph % (Auto) 18.4 L 16.0 L [place] % (Auto) 6.6 4.5 Eos % (Auto) 0.1 0.1 Baso % (Auto) 0.1 0.1 Neut # (Auto) 5.8 5.9 Lymph # (Auto) 1.4 1.2 L [place] # (Auto) 0.5 0.3 Eos # (Auto) 0.0 0.0 Baso # (Auto) 0.0 0.0 Immature Gran % 0.6 1.9 Nucleated RBC % 0.8 1.3 Immature Gran # 0.05 0.14 Nucleated RBCs # 0.06 0.10 ABG pH ABG pCO2 ABG pO2 ABG HCO3 ABG Total CO2 ABG O2 Saturation ABG Base Excess Sodium Potassium Chloride Carbon Dioxide Anion Gap BUN Creatinine GFR Calculation BUN/Creatinine Ratio Glucose POC Glucose 96 Calculated Osmolality Lactic Acid Calcium Magnesium Total Bilirubin AST ALT Alkaline Phosphatase Ammonia Total Creatine Kinase CK-MB (CK-2) CK and CKMB Interp Troponin I C-Reactive Protein B-Natriuretic Peptide Total Protein Albumin Globulin Albumin/Globulin Ratio Urine Color Urine Appearance Urine pH Ur Specific [place] Urine Protein Urine Glucose (UA) Urine Ketones Urine Blood Urine Nitrate Urine Bilirubin Urine Urobilinogen Urine Leukocytes Urine RBC Urine WBC Ur Squamous Epith Cells Urine Bacteria Cellular Casts Hyaline Casts Urine Mucus Ur Culture Indicated? Ur Random Creatinine U Random Total Protein Ur Random Sodium Ur Random Urea Nitrogn Urine Opiates Screen Ur Barbiturates Screen Ur Phencyclidine Scrn U Amphetamine/Methamph U Benzodiazepines Scrn U Cocaine Metab Screen U Cannabinoids Screen Hepatitis A IgM Ab Hep Bs Antigen Hep B Core IgM Ab Hepatitis C Antibody 11/21/16 11/21/16 11/21/16 04:39 04:39 04:39 WBC RBC Hgb Hct MCV MCH MCHC RDW Plt Count MPV Neut % (Auto) Lymph % (Auto) [place] % (Auto) Eos % (Auto) Baso % (Auto) Neut # (Auto) Lymph # (Auto) [place] # (Auto) Eos # (Auto) Baso # (Auto) Immature Gran % Nucleated RBC % Immature Gran # Nucleated RBCs # ABG pH ABG pCO2 ABG pO2 ABG HCO3 ABG Total CO2 ABG O2 Saturation ABG Base Excess Sodium 136 Potassium 5.7 H Chloride 107 Carbon Dioxide 7 L Anion Gap 27.7 H BUN 36 H Creatinine 1.90 H GFR Calculation 30 BUN/Creatinine Ratio 18.00 Glucose 97 POC Glucose Calculated Osmolality 279.0 Lactic Acid Calcium 7.8 L Magnesium Total Bilirubin 2.80 H AST 408 H ALT 251 H Alkaline Phosphatase 85 Ammonia Total Creatine Kinase 521 H D CK-MB (CK-2) 23.4 H D CK and CKMB Interp 4.5 Troponin I 0.043 C-Reactive Protein B-Natriuretic Peptide 4544 H Total Protein 4.7 L Albumin 2.6 L Globulin 2.1 L Albumin/Globulin Ratio 1.2 Urine Color Urine Appearance Urine pH Ur Specific [place] Urine Protein Urine Glucose (UA) Urine Ketones Urine Blood Urine Nitrate Urine Bilirubin Urine Urobilinogen Urine Leukocytes Urine RBC Urine WBC Ur Squamous Epith Cells Urine Bacteria Cellular Casts Hyaline Casts Urine Mucus Ur Culture Indicated? Ur Random Creatinine U Random Total Protein Ur Random Sodium Ur Random Urea Nitrogn Urine Opiates Screen Ur Barbiturates Screen Ur Phencyclidine Scrn U Amphetamine/Methamph U Benzodiazepines Scrn U Cocaine Metab Screen U Cannabinoids Screen Hepatitis A IgM Ab Hep Bs Antigen Hep B Core IgM Ab Hepatitis C Antibody 11/21/16 11/21/16 11/21/16 04:48 07:12 07:32 WBC RBC Hgb Hct MCV MCH MCHC RDW Plt Count MPV Neut % (Auto) Lymph % (Auto) [place] % (Auto) Eos % (Auto) Baso % (Auto) Neut # (Auto) Lymph # (Auto) [place] # (Auto) Eos # (Auto) Baso # (Auto) Immature Gran % Nucleated RBC % Immature Gran # Nucleated RBCs # ABG pH 6.996 L* D 7.261 L ABG pCO2 24.6 L 19.1 L* ABG pO2 104.0 H 409.4 H ABG HCO3 7.4 L 8.4 L ABG Total CO2 5.8 L 9.0 L ABG O2 Saturation 91.9 L 99.5 ABG Base Excess -24.9 L -16.4 L Sodium 141 Potassium 5.1 Chloride 108 H Carbon Dioxide 10 L Anion Gap 28.1 H BUN 37 H Creatinine 2.00 H GFR Calculation 28 BUN/Creatinine Ratio 18.00 Glucose 66 L POC Glucose Calculated Osmolality 287.3 Lactic Acid Calcium 8.0 L Magnesium 1.8 Total Bilirubin AST ALT Alkaline Phosphatase Ammonia Total Creatine Kinase CK-MB (CK-2) CK and CKMB Interp Troponin I C-Reactive Protein B-Natriuretic Peptide Total Protein Albumin Globulin Albumin/Globulin Ratio Urine Color Urine Appearance Urine pH Ur Specific [place] Urine Protein Urine Glucose (UA) Urine Ketones Urine Blood Urine Nitrate Urine Bilirubin Urine Urobilinogen Urine Leukocytes Urine RBC Urine WBC Ur Squamous Epith Cells Urine Bacteria Cellular Casts Hyaline Casts Urine Mucus Ur Culture Indicated? Ur Random Creatinine U Random Total Protein Ur Random Sodium Ur Random Urea Nitrogn Urine Opiates Screen Ur Barbiturates Screen Ur Phencyclidine Scrn U Amphetamine/Methamph U Benzodiazepines Scrn U Cocaine Metab Screen U Cannabinoids Screen Hepatitis A IgM Ab Hep Bs Antigen Hep B Core IgM Ab Hepatitis C Antibody 11/21/16 11/21/16 11/21/16 07:32 07:32 08:17 WBC RBC Hgb Hct MCV MCH MCHC RDW Plt Count MPV Neut % (Auto) Lymph % (Auto) [place] % (Auto) Eos % (Auto) Baso % (Auto) Neut # (Auto) Lymph # (Auto) [place] # (Auto) Eos # (Auto) Baso # (Auto) Immature Gran % Nucleated RBC % Immature Gran # Nucleated RBCs # ABG pH ABG pCO2 ABG pO2 ABG HCO3 ABG Total CO2 ABG O2 Saturation ABG Base Excess Sodium Potassium Chloride Carbon Dioxide Anion Gap BUN Creatinine GFR Calculation BUN/Creatinine Ratio Glucose POC Glucose Calculated Osmolality Lactic Acid Calcium Magnesium Total Bilirubin AST ALT Alkaline Phosphatase Ammonia 50 H Total Creatine Kinase 729 H D CK-MB (CK-2) 31.7 H D CK and CKMB Interp 4.3 Troponin I 0.076 H D C-Reactive Protein 2.19 H B-Natriuretic Peptide Total Protein Albumin Globulin Albumin/Globulin Ratio Urine Color Urine Appearance Urine pH Ur Specific [place] Urine Protein Urine Glucose (UA) Urine Ketones Urine Blood Urine Nitrate Urine Bilirubin Urine Urobilinogen Urine Leukocytes Urine RBC Urine WBC Ur Squamous Epith Cells Urine Bacteria Cellular Casts Hyaline Casts Urine Mucus Ur Culture Indicated? Ur Random Creatinine U Random Total Protein Ur Random Sodium Ur Random Urea Nitrogn Urine Opiates Screen Ur Barbiturates Screen Ur Phencyclidine Scrn U Amphetamine/Methamph U Benzodiazepines Scrn U Cocaine Metab Screen U Cannabinoids Screen Hepatitis A IgM Ab Hep Bs Antigen Hep B Core IgM Ab Hepatitis C Antibody 11/21/16 11/21/16 11/21/16 09:55 09:55 09:55 WBC RBC Hgb Hct MCV MCH MCHC RDW Plt Count MPV Neut % (Auto) Lymph % (Auto) [place] % (Auto) Eos % (Auto) Baso % (Auto) Neut # (Auto) Lymph # (Auto) [place] # (Auto) Eos # (Auto) Baso # (Auto) Immature Gran % Nucleated RBC % Immature Gran # Nucleated RBCs # ABG pH ABG pCO2 ABG pO2 ABG HCO3 ABG Total CO2 ABG O2 Saturation ABG Base Excess Sodium Potassium Chloride Carbon Dioxide Anion Gap BUN Creatinine GFR Calculation BUN/Creatinine Ratio Glucose POC Glucose Calculated Osmolality Lactic Acid 11.0 H Calcium Magnesium Total Bilirubin AST ALT Alkaline Phosphatase Ammonia Total Creatine Kinase CK-MB (CK-2) CK and CKMB Interp Troponin I C-Reactive Protein B-Natriuretic Peptide Total Protein Albumin Globulin Albumin/Globulin Ratio Urine Color Urine Appearance Urine pH Ur Specific [place] Urine Protein Urine Glucose (UA) Urine Ketones Urine Blood Urine Nitrate Urine Bilirubin Urine Urobilinogen Urine Leukocytes Urine RBC Urine WBC Ur Squamous Epith Cells Urine Bacteria Cellular Casts Hyaline Casts Urine Mucus Ur Culture Indicated? Ur Random Creatinine 146 U Random Total Protein Ur Random Sodium 68.0 Ur Random Urea Nitrogn Urine Opiates Screen Ur Barbiturates Screen Ur Phencyclidine Scrn U Amphetamine/Methamph U Benzodiazepines Scrn U Cocaine Metab Screen U Cannabinoids Screen Hepatitis A IgM Ab Hep Bs Antigen Hep B Core IgM Ab Hepatitis C Antibody 11/21/16 11/21/16 11/21/16 09:55 09:55 09:55 WBC RBC Hgb Hct MCV MCH MCHC RDW Plt Count MPV Neut % (Auto) Lymph % (Auto) [place] % (Auto) Eos % (Auto) Baso % (Auto) Neut # (Auto) Lymph # (Auto) [place] # (Auto) Eos # (Auto) Baso # (Auto) Immature Gran % Nucleated RBC % Immature Gran # Nucleated RBCs # ABG pH ABG pCO2 ABG pO2 ABG HCO3 ABG Total CO2 ABG O2 Saturation ABG Base Excess Sodium Potassium Chloride Carbon Dioxide Anion Gap BUN Creatinine GFR Calculation BUN/Creatinine Ratio Glucose POC Glucose Calculated Osmolality Lactic Acid Calcium Magnesium Total Bilirubin AST ALT Alkaline Phosphatase Ammonia Total Creatine Kinase CK-MB (CK-2) CK and CKMB Interp Troponin I C-Reactive Protein B-Natriuretic Peptide Total Protein Albumin Globulin Albumin/Globulin Ratio Urine Color Dark yellow Urine Appearance Cloudy Urine pH 5.0 Ur Specific [place] 1.012 Urine Protein 100 Urine Glucose (UA) Negative Urine Ketones Negative Urine Blood Large Urine Nitrate Negative Urine Bilirubin Negative Urine Urobilinogen 2.0 H Urine Leukocytes Negative Urine RBC 54 Urine WBC 3 Ur Squamous Epith Cells Occasional Urine Bacteria Occasional Cellular Casts Hyaline Casts 11 Urine Mucus Occasional Ur Culture Indicated? Not indicated Ur Random Creatinine U Random Total Protein 108 Ur Random Sodium Ur Random Urea Nitrogn 304 Urine Opiates Screen Ur Barbiturates Screen Ur Phencyclidine Scrn U Amphetamine/Methamph U Benzodiazepines Scrn U Cocaine Metab Screen U Cannabinoids Screen Hepatitis A IgM Ab Hep Bs Antigen Hep B Core IgM Ab Hepatitis C Antibody - EKG EKG results: interpreted by me
[2016-11-21 12:25] LABS: Basophils % 0.1 % (0.0-0.8); Hematocrit 37.9 VOL% (35.7-47.0); Hemoglobin 12.2 GM/DL (12.0-16.0); Immature Granulocytes % 1.2 %; Lymphocytes # 1.5 10*3/uL (1.4-4.0); Lymphocytes % 8.9 % (21.3-54.2); Mean Corpuscular HGB Conc 32.2 GM/DL (32-36); Mean Corpuscular Hemoglobin 29 PG (27-34); Mean Corpuscular Volume 90.7 FL (87-102); Mean Platelet Volume 12.7 FL (9.6-12.0); Monocytes # 0.6 10*3/uL (0.11-0.8); Monocytes % 3.4 % (1.7-12.7); NRBC # 0.18 10*3/uL; Neutrophils # 14.1 10*3/uL (1.4-7.4); Neutrophils % 86.4 % (38.7-73.9); Platelet Count 140 T/CUMM (130-400); Red Blood Count 4.18 MC/CUMM (3.8-5.5); Red Cell Distribution Width 19.2 % (9.3-17.3); White Blood Count 16.4 T/CUMM (4-12)
--- NOTE | 2016-11-21 12:29 | Nephrology Consult Note ---
History of Present Illness Chief complaint: referred for NADIA, s/p arrest History of present illness: Ms. Hall is a 56 year old female admitted for 2-3 weeks of progressive altered mental status. Hypotensive with MAPs <60 on admission. Lactate 11, profound metabolic acidosis, Serum CO2 7, creatinine 1.9, K 5.7. Renal u/s with R 9.2cm, L 8.4 cm, nonspecific left perinephric fluid, no hydronephrosis. Fractional excretion of Urea is 11% c/w prerenal azotemia. BNP is 4544. CK 729, MB 31. LFTs all elevated x alk phos. Platelets low (126), ammonia elevated at 50. UA SG 1.021, pH 5.0, 2+ protein, 1+ blood, 5 ketones. Now on 1N bicarb at 150cc/hr. Home Medications Medication Instructions Recorded Confirmed Type Furosemide Tab [Lasix Tab] 20 mg PO BID DIURETIC #14 tablet 07/20/16 11/20/16 Rx Apixaban [Eliquis] 5 mg PO BID 11/20/16 11/20/16 History Carvedilol [Carvedilol] 25 mg PO BID 11/20/16 11/20/16 History Hydrocodone/Acetaminophen 1 tablet PO BID 11/20/16 11/20/16 History [Hydrocodon-Acetaminophn 10-325] Quetiapine Fumarate [Quetiapine 300 mg PO BEDTIME 11/20/16 11/20/16 History Fumarate] Quinapril HCl 40 mg PO DAILY 11/20/16 11/20/16 History Venlafaxine [Effexor] 225 mg PO DAILY 11/20/16 11/20/16 History Allergies Allergy/AdvReac Type Severity Reaction Status Date / Time meperidine [From Demerol] AdvReac ANAPHYLAXIS Verified 11/20/16 11:16 Penicillins AdvReac ANAPHYLAXIS Verified 11/20/16 11:16 Medical,Surgical,& Family Hx - Medical History Cardio: History of: CHF - Social History Smoking Status: Current every day smoker Frequency of Alcohol Use: None Type of Drug Use: Marijuana Review of Systems ROS unobtainable: due to endotracheal tube Exam - Vital Signs Vital signs: Period Temp Pulse Resp BP Sys/Morse Pulse Ox Last 24 Hr 96.8 F-97.9 F 34-125 12-29 76-181/52-117 95-100 - General Appearance General appearance: chronically ill, sedated on ventilator, intubated EENT: ATNC, PERRL Neck: no JVD, no thyromegaly Respiratory: no kyphosis, clear Cardiology: no murmurs, no rub Gastrointestinal: normoactive bowel sounds, no tenderness Integumentary: no rash, cool/clammy (cool and dry, nonpalpable or dopplerable BLE pulses, cyanotic) Neurologic: no focal deficit, obtunded Musculoskeletal: no deformities, no erythema, cyanosis Results - Labs CBC & BMP: 11/21/16 04:39 11/21/16 07:32 Assessment and Plan (1) NADIA (acute kidney injury) Problem details: No acute indication for renal replacement therapy. Lactate is nondialyzable. Also has a mild ketosis, most likely starvation. Status: Acute Assessment and plan: Prerenal by urinary indices, not c/w intrinsic renal dz or damage. Agree with IVFs. Current Visit: Yes (2) Metabolic acidosis Problem details: Lactate is an independent predictor of mortality. Most common causes of lactic acidosis: 1) sepsis (49%) 2) liver dz (15%) 3) resp failure 12% . Status: Acute Assessment and plan: High predicted mortality. Agree with 1N bicarb at 150cc/hr for first liter, then decrease to 100cc/hr. This should improve the pH and potassium. Current Visit: Yes (3) Altered mental status Problem details: Sepsis, polysubstance abuse, hepatic encephalopathy all in the differential. Status: Acute Current Visit: Yes (4) Elevated LFTs Problem details: ?shock liver, but would not explain some of the chronic appearing liver abnormalities, poor synthetic function, low platelets. Status : Acute Current Visit: Yes (5) Cardiorespiratory failure Status: Acute Current Visit: Yes
--- NOTE | 2016-11-21 12:31 | ECHO Report ---
Patricia Hall Exam Date: 11/21/2016 08:26 Referring Physician: Technologist: Clara Saenz RDCS Age: 56 Ht (in): 64 Wt (lb): 163 Gender: F Exam Location: [facility] Echo Indications: Cardiac arrest, cause unspecified, Altered mental status, Polysubstance abuse, Elevated LFTs, Presence of cardiac pacemaker BP: 100 / 67 HR: 73 Rhythm: Other Technical Quality: IMPRESSIONS Severe four-chamber dilated cardiomyopathy with left ventricular ejection fraction estimated at 15%. There is global hypokinesis. Moderate mitral regurgitation. Mild to moderate tricuspid regurgitation. Pacing leads are noted in the right heart. MEASUREMENTS (Male / Female) Normal Values 2D ECHO LV Diastolic Diameter PLAX 7.2 cm 4.2 - 5.9 / 3.9 - 5.3 cm LV Systolic Diameter PLAX 6.8 cm LV Fractional Shortening PLAX 5.8 % IVS Diastolic Thickness 0.8 cm 0.6 - 1.0 / 0.6 - 0.9 cm LVPW Diastolic Thickness 0.8 cm 0.6 - 1.0 / 0.6 - 0.9 cm RV Internal Dim ED PLAX 3.8 cm Aortic Root Diameter 2.6 cm LA Systolic Diameter LX 4.0 cm 3.0 - 4.0 / 2.7 - 3.8 cm DOPPLER TR Peak Velocity 319.0 cm/s TR Peak Gradient 40.7 mmHg FINDINGS Left Ventricle Severely increased left ventricular cavity size. Normal left ventricular wall thickness. Left ventricular ejection fraction is estimated at 15 %. Right Ventricle Mildly increased right ventricular size. Catheter/pacemaker wire visualized in the right ventricle. Right Atrium Moderately increased right atrial size. Catheter/pacemaker wire in the right atrial cavity. Left Atrium Moderately increased left atrial size. Mitral Valve Morphologically normal mitral valve. Moderate mitral valve regurgitation. Aortic Valve Morphologically normal aortic valve without significant sclerosis or stenosis. There is no aortic regurgitation. Tricuspid Valve Morphologically normal tricuspid valve. [id number] tricuspid valve regurgitation. Tricuspid regurgitation velocities suggest a PAP of 51 mmHg. Pulmonic Valve Morphologically normal pulmonic valve. Trace pulmonary valve regurgitation. Pericardium Normal pericardium without effusion. Aorta Normal ascending aorta dimension. Jose Aiken (Electronically Signed) Final Date: 21 November 2016 12:10
[2016-11-21 12:36] LABS: D-Dimer 2.4 MG/L FEU
--- NOTE | 2016-11-21 12:41 | Ultrasound Report ---
Indication: Hypoxia Duplex scan of the bilateral lower extremity veins Technique: Duplex scan of the bilateral lower extremity veins using B-mode/grayscale imaging and Doppler spectral analysis and color flow Findings: Major venous structures of the bilateral lower extremity demonstrate a normal course and caliber. There is no evidence of deep vein thrombosis. No abnormal intrinsic echogenic lesions are demonstrated in the scanned blood vessels. Veins demonstrate good compressibility with normal color flow study and spectral analysis. Impression: Unremarkable duplex imaging of the bilateral lower extremity veins. No evidence of DVT PROCEDURE INTERPRETED AT [facility] [place] DEPARTMENT OF RADIOLOGY Final Report Signed by: Agustín Cyr
[2016-11-21 12:47] LABS: PT Patient Result > 200.0 SECS
[2016-11-21 12:49] LABS: INR > 20.0
[2016-11-21] MEDS: MIDAZOLAM 100 MG in SODIUM CHLORIDE 0.9% 80 ML IV SCH (12:56)
--- NOTE | 2016-11-21 13:48 | XRay Report ---
Exam: XR chest 1V portable Indication: Intubated, respiratory failure Comparison study: 11-20-16 Findings: Cardiac silhouette is enlarged, similar to prior. Endotracheal tube is noted in position with terminates approximately 3 cm from the fede. Left chest pacemaker device and wire leads appear in similar position. There are minimal patchy perihilar and basilar interstitial opacities which are slightly increased from prior. There is also slight blunting of left costophrenic angle likely represents layering small pleural effusion. Upper lungs appear clear. There is no pneumothorax. Osseous structures are stable. Impression: Cardiomegaly with slight worsening of perihilar and basilar opacities may represent developing interstitial edema and/or left basilar atelectasis/pleural fluid. Endotracheal tube is noted in position. PROCEDURE INTERPRETED AT [facility] DEPARTMENT OF RADIOLOGY Final Report Signed by: Agustín Cyr
[2016-11-21 15:29] LABS: Calcium 7.6 MG/DL (8.5-10.1); Magnesium 1.7 MG/DL (1.8-2.4); Osmolality,Calculated 289.5 MOS/KG (273-304); Potassium 4.2 MMOL/L (3.5-5.1)
[2016-11-21] MEDS ORDERED: MAGNESIUM SULF RIDER 2 GM in PREMIX 1 EACH IV ONE (15:32)
[2016-11-21] MEDS ORDERED: VANCOMYCIN INJ 1,000 MG in SODIUM CHLORIDE 0.9% 250 ML IV ONE (16:00)
--- NOTE | 2016-11-21 16:09 | XRay Report ---
XR abdomen complete w decub Clinical Information: Abdominal Pain GI bleed Comparison: None Findings: Bowel gas pattern is nonspecific and within normal limits. No abnormally dilated small bowel loops are identified to suggest obstruction. There is no free air identified. Scattered fecal material is noted throughout colon, which is otherwise nondilated. No abnormal focal soft tissue masses or calcific densities are identified in the abdomen or pelvis. Esophagogastric tube is noted within the stomach. Lung bases appear predominantly clear. There is no acute osseous abnormality. No suspicious osseous lesions are identified. Right femoral approach central venous catheter is noted in place. Impression: No acute radiographic abnormality in the abdomen. PROCEDURE INTERPRETED AT [facility] DEPARTMENT OF RADIOLOGY Final Report Signed by: Agustín Cyr
--- NOTE | 2016-11-21 16:15 | Gastrointestinal Consult Note ---
Assessment and Plan - Time spent with patient Time spent with patient: Greater than 30 minutes (1) GI bleed Status: Acute Current Visit: Yes (2) Elevated LFTs Problem details: ?shock liver, but would not explain some of the chronic appearing liver abnormalities, poor synthetic function, low platelets. Status : Acute Current Visit: Yes (3) Coagulopathy Status: Acute Current Visit: Yes (4) Lactic acidosis Status: Acute Current Visit: Yes (5) Other specified counseling Status: Acute Current Visit: Yes History of Present Illness History of present illness: Ms. Hall is a 56 year old female Home Medications Medication Instructions Recorded Confirmed Type Furosemide Tab [Lasix Tab] 20 mg PO BID DIURETIC #14 tablet 07/20/16 11/20/16 Rx Apixaban [Eliquis] 5 mg PO BID 11/20/16 11/20/16 History Carvedilol [Carvedilol] 25 mg PO BID 11/20/16 11/20/16 History Hydrocodone/Acetaminophen 1 tablet PO BID 11/20/16 11/20/16 History [Hydrocodon-Acetaminophn 10-325] Quetiapine Fumarate [Quetiapine 300 mg PO BEDTIME 11/20/16 11/20/16 History Fumarate] Quinapril HCl 40 mg PO DAILY 11/20/16 11/20/16 History Venlafaxine [Effexor] 225 mg PO DAILY 11/20/16 11/20/16 History Allergies Allergy/AdvReac Type Severity Reaction Status Date / Time meperidine [From Demerol] AdvReac ANAPHYLAXIS Verified 11/20/16 11:16 Penicillins AdvReac ANAPHYLAXIS Verified 11/20/16 11:16 Medical,Surgical,& Family Hx - Medical History Cardio: History of: CHF - Social History Smoking Status: Current every day smoker Frequency of Alcohol Use: None Type of Drug Use: Marijuana Exam - Constitutional Vitals: Period Temp Pulse Resp BP Sys/Morse Pulse Ox Last 24 Hr 96.8 F-97.9 F 63-125 14-29 76-181/52-117 95-100 Results - Labs CBC & BMP: 11/21/16 12:06 11/21/16 14:45 Note Addendum: PLEASE NOTE -- automatic citation of patient information is unavoidable in this electronic note. I have made a reasonable effort to review the information cited , but it is not a part of my evaluation, impression, or recommendation unless specifically discussed in the dictated text that follows.~ As well, voice recognition software was used in the creation of this clinical note. Reasonable effort was made to identify and correct gross errors. Despite proofreading, errors in emergency detail driver may be present, including nonsense verbiage at times. If you encounter such an error, please contact me at [phone] for discussion and correction. -- Marina Chief complaint: hematemesis History of present illness: This is a new patient, a 56-year-old female seen by consultation for evaluation of possible upper G.I. bleeding and elevated liver associated enzymes. The patient is admitted to the intensive care unit under the care of Dr. Pancho Menezes with a primary diagnosis of altered mental status. The patient was admitted yesterday through the emergency department with primary complaint of same. Evaluation at that time revealed electrolyte disturbances, altered mental status, and elevated liver associated enzymes. She was admitted to the medicine león and therapy was undertaken to begin correcting these problems. Overnight, however, the patient experienced acute shortness of breath and hypotension and eventually suffered a pulseless episode requiring ACLS protocol. She was recovered but has required near continuous intervention in order to maintain her blood pressure, pulse, and respiration. At some point during this decline, she began having coffee grounds production from her nasogastric tube and has also had periodic production of bright red blood, but low volume. The patient is intubated and not arousable and is unable to give history. The majority of my information comes from the record and from the nursing staff who , in turn, gathered information from the family. Briefly, the patient is prescribed Tylenol containing narcotic pain medicine, benzodiazepine, anticoagulant, and other medications. She began exhibiting signs of altered mental status yesterday or the day before, prompting her family to bring her to the emergency department. The patient lives with one of her adult children but is generally not attended and is responsible for taking her own medications. There is concern on the part of her family that she is not taking medication correctly, specifically that she is likely overdosing narcotics and benzodiazepines. As well, it is not clear that she is taking anticoagulant correctly and could be underdosing or overdosing same. As well, the patient apparently does have a fairly robust alcohol history as her family reports that she drank more than a half a case of beer per day for more than 20 years. There is conjecture that she stopped drinking some years ago, but there is also conjecture that she may continue to drink surreptitiously. It is known that she uses marijuana regularly. We do not know whether she has taken any other medications or any other substances. Review of systems: patient is unable to provide review of systems Outpatient medications: hydrocodone/acetaminophen, Lasix, carvedilol, Eliquis, Quinapril, quetiapine, Effexor Inpatient medications: Tylenol, dobutamine, Ativan, Versed, norepinephrine, Zofran, Protonix, Phenergen, sodium bicarbonate, Effexor Past Medical History: congestive heart failure, coronary artery disease, substance abuse, poly pharmacy Social history: positive tobacco. Former heavy alcohol drinker, now equivocal alcohol use ~ Family history: no gastrointestinal cancers Physical examination:~ Vital Signs: Current vital signs reviewed and documented above.~ General Appearance: lying in bed. Intubated. Nasogastric tube in place. Head: Normocephalic.~ Neck: Palpation of the neck revealed no abnormalities.~ Eyes: No scleral icterus.~ No scleral injection.~ No conjunctival pallor.~ Oral Cavity: Odor of breath was normal. No drooling was observed. Lips showed no abnormalities. Floor of the mouth showed no abnormalities. Endotracheal tube was in place. Pharynx: Oropharynx was normal.~ Lungs: Respiration rhythm and depth was mechanically controlled.~ Cardiovascular: irregular rhythm Abdomen: abdomen was not distended. Abdominal palpation did not elicit involuntary withdrawal. No hepatosplenomegaly was discovered. Ascites was not discovered. Abdominal auscultation revealed diminished bowel sounds. Musculoskeletal System: Musculoskeletal system was grossly normal.~ Neurological: patient was sedated Skin: General appearance was normal. Color and pigmentation were normal. No skin lesions. ~ Laboratory: white blood count 16.4, hemoglobin 12.2, hematocrit 37.9, platelets 140, INR greater than 20, PT greater than 200, ALT 251, AST 408, total bilirubin 2.8, albumin 2.6, alkaline phosphatase 85, BUN 37, creatinine 2.0, lactic acid 11.0, viral hepatitis screen negative Radiology: right upper quadrant ultrasound, November 20, 2016 -- no acute sonographic abnormality in the abdomen; cholelithiasis without cholecystitis; slightly irregular liver margin; hepatic and portal veins appear patent with normal directional flow Impressions:~ 1. Hematemesis -- the differential diagnosis includes mucosal trauma from the nasogastric tube in the setting of severe coagulopathy, peptic ulcer, gastritis generally, esophagitis, arteriovenous malformation, esophageal or gastric varices from undiagnosed cirrhosis and/or portal hypertension, hemoptysis, and others. The patient's blood counts are currently preserved, and I recommend continued aggressive volume management, monitoring of blood counts, and transfusion as indicated. Urgent endoscopy is not indicated at present but may be, depending on clinical progress. As well, given the patient's tenuous status , any procedural interventions would carry significant risk. We will follow along with you with further recommendations as indicated. 2. Elevated liver associated enzymes -- the patient had normal liver associated enzymes as recently as June of this year. This would appear, therefore, to be an acute insult of some kind. The differential diagnosis includes toxin ( including medication), ischemia, infection (less likely), autoimmune disease, and genetically mediated metabolic disease. With the family's report of increased use of Tylenol containing narcotic analgesia, Tylenol overdose is possible. Tylenol level was measured at over 4 mg/mL and it has likely been more than 24 hours since her last dose of same. This is not above the cut line on the nomogram but we are not able to accurately predict how much Tylenol or how long ago her last dose of Tylenol was. As well, if the patient has been surreptitiously drinking alcohol, this would reduce the level of Tylenol necessary to cause toxicity. I recommend initiation of NAC Against the possibility of Tylenol overdose. This may also have some benefit in the setting of acute liver failure generally though evidence in this regard is lacking. I recommend screening for evidence of autoimmune disease (I will order these labs) ,~ aggressive volume and electrolyte management, and minimization of potentially hepatotoxic medications to the greatest extent possible. The patient has significant coagulopathy which is a marker for hepatic synthetic dysfunction and also for acute liver failure. Elevated serum lactate is also consistent with this diagnosis. Understanding this, her prognosis is poor. 3. Coagulopathy -- the patient's INR is >20. This is a marker for acute liver failure absent an alternative explanation. The patient is prescribed Eliquis but it is unclear that this would reasonably be expected, even with overdose, to result in coagulopathy of this severity. IV vitamin K could potentially provide some benefit in this regard but, with likely liver failure, the liver's ability to respond may be severely compromised. 4. Lactic acidosis -- this is a marker for tissue ischemia and may be related to liver insult. Patient is also experiencing decreased stool output and decreased bowel sounds. It is possible she is also suffering from gut-related ischemia. Because transporting for CT scan in the patient's tenuous condition may not be feasible, I recommend a plane film of the abdomen as a screening test in order to determine whether there are signs of ischemia. If positive, surgical consultation will need to be taken. In the interim, goal-directed therapy to correct the acidosis should continue. 5. Other specified counseling --~ The patient was seen for greater than 60 minutes.~ The patient was counseled for greater than 50% of this time regarding differential diagnosis, likely diagnosis, diagnostic and therapeutic alternatives, risks/benefits/alternatives of medications and procedures, and plan of care generally.~ The patient expressed understanding and wishes to proceed. Recommendations: -- continue proton pump inhibitor -- continue aggressive volume, electrolyte, and acid/base management -- monitor blood counts and transfuse as indicated -- no indication for urgent endoscopy -- initiate N-acetylcysteine for treatment of potential Tylenol overdose and liver failure generally -- screen for evidence of autoimmune hepatopathy -- minimize potential hepatotoxic medications to the greatest extent possible -- consider intravenous vitamin K -- contact a transplant center to determine whether patient is a potential candidate for transfer~ -- thank you for consultation. We will to follow with you
[2016-11-21] MEDS: MEROPENEM 500 MG in SODIUM CHLORIDE 0.9% 100 ML IV SCH (16:18)
[2016-11-22] MEDS: ASCORBIC ACID 500 MG TABLET PO SCH ×3 (00:16→21:58)
[2016-11-22] MEDS: PANTOPRAZOLE 40 MG VIAL IV SCH ×3 (00:16→21:59)
[2016-11-22] MEDS: DOBUTamine 500 MG/250 ML PREMIX IV SCH ×5 (01:01→22:24)
[2016-11-22] MEDS: NOREPINEPHRINE 8 MG in SODIUM CHLORIDE 0.9% 242 ML IV SCH ×3 (03:01→20:01)
[2016-11-22] MEDS: MEROPENEM 500 MG in SODIUM CHLORIDE 0.9% 100 ML IV SCH ×2 (04:00→14:47)
[2016-11-22] MEDS: SODIUM BICARB INJ 150 MEQ in DEXTROSE 5% 850 ML IV SCH (04:01)
[2016-11-22 05:00] LABS: ABG Base Excess 1.3 MMOL/L (-2.5-2.5); ABG HCO3 22.5 MMOL/L (20-26); ABG Oxygen Saturation 99.1 % (95-100); ABG PCO2 26.4 MM HG (35-48); ABG PH 7.549 (7.35-7.45); ABG PO2 197.7 MM HG (80-95); ABG TCO2 23.3 MMOL/L (23-27)
[2016-11-22 05:11] LABS: Basophils % 0.1 % (0.0-0.8); Hematocrit 35.4 VOL% (35.7-47.0); Hemoglobin 12.1 GM/DL (12.0-16.0); Immature Granulocytes % 1.2 %; Immature Granulocytes Absolute 0.16 #; Lymphocytes % 7.6 % (21.3-54.2); Mean Corpuscular HGB Conc 34.2 GM/DL (32-36); Mean Corpuscular Hemoglobin 29 PG (27-34); Mean Corpuscular Volume 84.9 FL (87-102); Mean Platelet Volume 12.7 FL (9.6-12.0); Monocytes # 0.4 10*3/uL (0.11-0.8); Monocytes % 3.2 % (1.7-12.7); NRBC # 0.19 10*3/uL; Neutrophils # 11.9 10*3/uL (1.4-7.4); Neutrophils % 87.9 % (38.7-73.9); Platelet Count 140 T/CUMM (130-400); Red Blood Count 4.17 MC/CUMM (3.8-5.5); Red Cell Distribution Width 18.7 % (9.3-17.3); White Blood Count 13.5 T/CUMM (4-12)
[2016-11-22 05:23] LABS: Calcium 7.8 MG/DL (8.5-10.1); Osmolality,Calculated 289.5 MOS/KG (273-304); Potassium 3.4 MMOL/L (3.5-5.1)
[2016-11-22 05:25] LABS: Lactic Acid 4.3 MMOL/L (0.4-2.0)
[2016-11-22 05:32] LABS: PT Patient Result 96.8 SECS
[2016-11-22] MEDS: MIDAZOLAM 100 MG in SODIUM CHLORIDE 0.9% 80 ML IV SCH ×2 (05:38→12:43)
[2016-11-22 05:40] LABS: Phosphorous 2.9 MG/DL (2.5-4.9)
[2016-11-22 05:56] LABS: Alanine Aminotransferase 1538 U/L (13-56); Albumin 2.4 G/DL (3.4-5.0); Alkaline Phosphatase 86 U/L (45-117); Aspartate Amino Transferase > 2002 U/L (0-37); Bilirubin,Indirect 1.5 MG/DL (0.0-1.0); Total Protein 4.3 G/DL (6.4-8.3)
--- NOTE | 2016-11-22 08:26 | Gastrointestinal Progress Note ---
Assessment and Plan - Time spent with patient Time spent with patient: Greater than 30 minutes (1) GI bleed Status: Acute Current Visit: Yes (2) Elevated LFTs Problem details: Acute and chronic appearing liver abnormalities, poor synthetic function, low platelets. Appears to have DIC. Status: Acute Current Visit: Yes (3) Coagulopathy Status: Acute Current Visit: Yes (4) Lactic acidosis Status: Acute Current Visit: Yes (5) Other specified counseling Status: Acute Current Visit: Yes Exam (Progress Note) - Constitutional Vitals: Period Temp Pulse Resp BP Sys/Morse Pulse Ox Last 24 Hr 97.2 F-97.2 F 55-90 14-24 89-106/55-67 92-100 Results - Labs CBC & BMP: 11/22/16 10:25 11/22/16 04:59 Note Addendum: PLEASE NOTE -- automatic citation of patient information is unavoidable in this electronic note. I have made a reasonable effort to review the information cited , but it is not a part of my evaluation, impression, or recommendation unless specifically discussed in the dictated text that follows. As well, voice recognition software was used in the creation of this clinical note. Reasonable effort was made to identify and correct gross errors. Despite proofreading, errors in mc kay machine operator may be present, including nonsense verbiage at times. If you encounter such an error, please contact me at for discussion and correction. -- Marina Chief complaint: hematemesis, cirrhosis History of present illness: the patient is a 56-year-old female seen for follow- up of hematemesis and liver failure. Overnight her blood counts remains stable and her INR has improved significantly. Unfortunately, her liver associated enzymes have climbed further. She continues to require blood pressure support. 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 Former heavy alcohol drinker, now equivocal alcohol use Family history: no gastrointestinal cancers Physical examination: Vital Signs: Current vital signs reviewed and documented above. General Appearance: lying in bed. Intubated. Nasogastric tube in place. Head: Normocephalic. Neck: Palpation of the neck revealed no abnormalities. Eyes: No scleral icterus. No scleral injection. No conjunctival pallor. Oral Cavity: Odor of breath was normal. No drooling was observed. Lips showed no abnormalities. Floor of the mouth showed no abnormalities. Endotracheal tube was in place. Pharynx: Oropharynx was normal. Lungs: Respiration rhythm and depth was mechanically controlled. Cardiovascular: irregular rhythm Abdomen: abdomen was not distended. Abdominal palpation did not elicit involuntary withdrawal. No hepatosplenomegaly was discovered. Ascites was not discovered. Abdominal auscultation revealed diminished bowel sounds. Musculoskeletal System: Musculoskeletal system was grossly normal. Neurological: patient was sedated Skin: General appearance was normal. Color and pigmentation were normal. No skin lesions. Laboratory: white blood count 13.5, hemoglobin 12.1, hematocrit 35.4, platelets 140, INR 8.0, PT 96.8, ALT 1538, AST >2000, total bilirubin 4.5,, alkaline phosphatase 86, albumin 2.4 Radiology: abdominal x-ray, November 21, 2016 -- no acute radiographic abnormality in the abdomen Impressions: 1. Hematemesis -- no significant output from the gastric tube. No vomiting. Blood counts are remaining stable. No indication for endoscopic evaluation. 2. Elevated liver associated enzymes -- the patient demonstrated a significant increase in transaminases. This could be result of ischemia associated with her pulseless episode. Bilirubin has also climbed but not dramatically. INR has decreased significantly and this may be multifactorial. It is still very high and this can certainly be associated with acute liver failure. I recommend continued aggressive volume, electrolytes, acid/base management. As discussed, I recommend initiating NAC. Finally, the patient is a plausible transplant candidate depending on her alcohol use status and it would be worthwhile to discuss her case with a transplant center if this does not improve significantly. 3. Coagulopathy -- the patient's INR is improved today. She did not get vitamin K yesterday. Vitamin K would still be a reasonable intervention at this point. 4. Lactic acidosis -- there was not evidence of gut -related ischemia on plane film. Lactic acid level is improving with volume resuscitation. Continue to monitor. 5. Other specified counseling -- The patient was seen for greater than 30 minutes. The patient was counseled for greater than 50% of this time regarding differential diagnosis, likely diagnosis, diagnostic and therapeutic alternatives, risks/benefits/alternatives of medications and procedures, and plan of care generally. The patient expressed understanding and wishes to proceed. Recommendations: -- continue proton pump inhibitor -- continue aggressive volume, electrolytes, and acid/base management -- monitor blood counts and transfuse as indicated -- no indication for urgent endoscopy -- initiate N-acetylcysteine for treatment of potential Tylenol overdose and liver failure generally -- minimize potential hepatotoxic medications, including Tylenol, to the greatest extent possible -- consider intravenous vitamin K -- contact a transplant center to determine whether patient is a potential candidate for transfer -- thank you for consultation. We will to follow with you
[2016-11-22] MEDS: LORazepam 2 MG/1 ML VIAL IV PRN ×3 (08:38→22:00)
[2016-11-22] MEDS: VENLAFAXINE 75 MG TABLET PO SCH (08:39)
--- NOTE | 2016-11-22 08:45 | XRay Report ---
Exam: XR chest 1V portable Indication: Intubated, respiratory failure Comparison study: 11/21/2016 at 4:16 AM Findings: Endotracheal tube is in similar position. Esophagogastric tube is again travels below the [id number]. Left chest pacemaker appears in stable position. Chronic silhouette is enlarged with minimal basilar opacities, more prominent on the left, unchanged from prior. No pneumothorax. Impression: No significant change from prior. Stable position of endotracheal and esophagogastric tubes. PROCEDURE INTERPRETED AT [facility] DEPARTMENT OF RADIOLOGY Final Report Signed by: gAustín Cyr
--- NOTE | 2016-11-22 10:24 | Hospitalist Progress Note ---
Assessment and Plan (1) Elevated LFTs Problem details: ?shock liver, but would not explain some of the chronic appearing liver abnormalities, poor synthetic function, low platelets. Status : Acute Assessment and plan: The patient continues on supportive care for liver failure. Will recheck bilirubin tomorrow as well as INR. I coordinated care with Dr. Villarreal and with Dr. Gray. Current Visit: Yes (2) Cardiorespiratory failure Status: Acute Current Visit: Yes (3) Cardiomyopathy Status: Acute Current Visit: Yes (4) Lactic acidosis Status: Acute Current Visit: Yes Hospitalist: Subjective Interval history: The patient remains orally intubated and mechanically ventilated. Laboratory studies show continued metabolic acidosis and liver failure. INR is now measurable. Exam - Constitutional Vitals: Period Temp Pulse Resp BP Sys/Morse Pulse Ox Last 24 Hr 97.2 F-98.0 F 55-90 14-24 89-107/55-67 92-100 Exam: Constitutional System: No distress. No tremulousness. The patient is orally intubated, mechanically ventilated, and sedated. Head: Normocephalic, atraumatic. Ears, Nose and Throat System: No evidence of Otitis or Mastoiditis. No epistaxis or discharge Eyes System: Pupils equal, round, and reactive. Extraocular muscles intact. Neck: Supple, without adenopathy, No jugular venous distention. No thyromegaly , neck mass, or prior surgery apparent. Respiratory System: Chest clear to auscultation. Cardiovascular System: Heart with irregular rate and rhythm. No murmur. There is prominent right ventricular heave GI System: Abdomen soft, nontender. Normo active bowel sounds present. Results - Labs CBC & BMP: 11/22/16 04:59 11/22/16 04:59 Lab Results: I have reviewed the past 24 hour labs Labs: Arterial blood gas shows pH 7.55, PCO2 26, and PO2 197. Bilirubin is 4.5 and BNP is 3777
--- NOTE | 2016-11-22 10:36 | Nephrology Progress Note ---
Nephrology - PN: Subj Interval history: Pt unresponsive, requiring pressor support, UOP increased to ~100cc/hr over the last few hours. ABG alkalotemic, CO2 normalized, hyperkalemia corrected. LAEs increasing. GI initiated autoimmune hepatic labs. Hepatitis panel neg. Lactate improved to around 4 from 11. Creatinine increasing. Mild hypokalemia (3.4) this am. Chart reviewed, data examined. Pt examined. Nursing staff interviewed. Exam (PN)-Nephrology - Vital Signs Vital signs: Period Temp Pulse Resp BP Sys/Morse Pulse Ox Last 24 Hr 97.2 F-98.0 F 55-90 14-24 89-107/55-67 92-100 - General Appearance General appearance: chronically ill, sedated on ventilator, intubated EENT: ATNC, PERRL, mucous membranes dry Neck: no JVD, no thyromegaly Respiratory: no kyphosis, clear Cardiology: no murmurs, no rub Gastrointestinal: normoactive bowel sounds, no tenderness Integumentary: no rash, warm and dry Neurologic: obtunded Musculoskeletal: no deformities, no erythema - Lab 11/22/16 04:59 11/22/16 04:59 Most recent lab results ABG pH 7.549 (7.35-7.45) H 11/22/16 04:58 ABG pCO2 26.4 MM HG (35-48) L 11/22/16 04:58 ABG pO2 197.7 MM HG (80-95) H 11/22/16 04:58 ABG HCO3 22.5 MMOL/L (20-26) 11/22/16 04:58 ABG O2 Saturation 99.1 % (95-100) 11/22/16 04:58 Calcium 7.8 MG/DL (8.5-10.1) L 11/22/16 04:59 Phosphorus 2.9 MG/DL (2.5-4.9) 11/22/16 04:59 Magnesium 2.1 MG/DL (1.8-2.4) 11/22/16 05:00 Assessment and Plan (1) NADIA (acute kidney injury) Problem details: No acute indication for renal replacement therapy. Status: Acute Assessment and plan: Prerenal by urinary indices, not c/w intrinsic renal dz or damage. Agree with IVFs. Changed to help correct alkalemia. Current Visit: Yes (2) Metabolic acidosis Problem details: Lactate is an independent predictor of mortality. Most common causes of lactic acidosis: 1) sepsis (49%) 2) liver dz (15%) 3) resp failure 12% . Status: Acute Assessment and plan: High predicted mortality. Reduce bicarb to 50meq/L at maintenance rate 75cc/hr. Current Visit: Yes (3) Altered mental status Problem details: Sepsis, polysubstance abuse, hepatic encephalopathy all in the differential. Status: Acute Current Visit: Yes (4) Elevated LFTs Problem details: Acute and chronic appearing liver abnormalities, poor synthetic function, low platelets. Appears to have DIC. Status: Acute Assessment and plan: Send peripheral smear to evaluate for schistocytosis, TTP. Start misoprostol to help reverse intrinsic renal vasoconstriction seen with liver failure. Current Visit: Yes (5) Cardiorespiratory failure Status: Acute Current Visit: Yes
[2016-11-22 10:38] LABS: Basophils % 0.2 % (0.0-0.8); Hematocrit 33.9 VOL% (35.7-47.0); Hemoglobin 11.9 GM/DL (12.0-16.0); Immature Granulocytes % 0.5 %; Immature Granulocytes Absolute 0.07 #; Lymphocytes # 1.1 10*3/uL (1.4-4.0); Lymphocytes % 8.6 % (21.3-54.2); Mean Corpuscular HGB Conc 35.1 GM/DL (32-36); Mean Corpuscular Hemoglobin 30 PG (27-34); Mean Corpuscular Volume 84.3 FL (87-102); Mean Platelet Volume 12.1 FL (9.6-12.0); Monocytes # 0.3 10*3/uL (0.11-0.8); Monocytes % 2.1 % (1.7-12.7); NRBC # 0.13 10*3/uL; Neutrophils # 11.5 10*3/uL (1.4-7.4); Neutrophils % 88.6 % (38.7-73.9); Platelet Count 111 T/CUMM (130-400); Red Blood Count 4.02 MC/CUMM (3.8-5.5); Red Cell Distribution Width 18.8 % (9.3-17.3)
[2016-11-22] MEDS: PROPOFOL 1,000 MG/100 ML BOTTLE IV SCH (10:55)
[2016-11-22 11:00] LABS: Band Neutrophils 2 % (0-10); Burr Cells Slight; Giant Platelets Few; Hypochromasia 1+; Lymphocytes 6 % (20-55); Nucleated Red Blood Cells 2 (0-5); Ovalocytes Slight; Platelet Estimate Decreased; Segmented Neutrophils 91 % (50-85); Total Cells Counted 100
--- NOTE | 2016-11-22 12:06 | Cardiology Progress Note ---
Assessment and Plan (1) Altered mental status Problem details: Sepsis, polysubstance abuse, hepatic encephalopathy all in the differential. Status: Acute Assessment and plan: The patient presented with altered mental status which could be related to her polysubstance use/abuse, but also could be related to some sort of infection or sepsis, or this could be related to an event such as a stroke. Current Visit: Yes (2) Metabolic acidosis Problem details: Lactate is an independent predictor of mortality. Most common causes of lactic acidosis: 1) sepsis (49%) 2) liver dz (15%) 3) resp failure 12% . Status: Acute Assessment and plan: This is much improved. The etiology of her acidosis is still somewhat unclear. Current Visit: Yes (3) Cardiomyopathy Status: Acute Assessment and plan: The patient has a long-standing severe cardiomyopathy. Clinically this appears to be stable. Current Visit: Yes (4) Pacemaker Status: Acute Assessment and plan: This appears to be functioning normally at this time. Current Visit: Yes (5) NADIA (acute kidney injury) Problem details: No acute indication for renal replacement therapy. Status: Acute Current Visit: Yes (6) Cardiorespiratory failure Status: Acute Assessment and plan: Patient apparently lost her blood pressure transiently which responded to vasopressors. She did not lose her heart rhythm. I am most suspicious that this could be some sort of sepsis. Pulmonary embolus is another possibility and workup is underway. Current Visit: Yes (7) Elevated LFTs Problem details: Acute and chronic appearing liver abnormalities, poor synthetic function, low platelets. Appears to have DIC. Status: Acute Assessment and plan: The patient has elevation of her liver function tests and very low albumin and globulin levels. She also had a profoundly elevated INR. The etiology of this liver failure remains unclear. Current Visit: Yes (8) Polysubstance abuse Status: Acute Assessment and plan: It is certainly possible that this is playing a role in the patient's presentation. Current Visit: Yes (9) GI bleed Status: Acute Assessment and plan: She had some upper gastrointestinal bleeding but this seems to be stabilized. Current Visit: Yes Cardiology - PN: Subj Interval history: The patient remains intubated and sedated. There have been no new cardiac issues overnight. She remains in a sinus rhythm with ventricular pacing. Her transaminases are higher today, although her INR and acidosis are much better. I discussed the case briefly with Dr. Marina. Current Medications Ascorbic Acid (Vitamin C Tab) 1,000 mg PO BID BENJAMIN Last Admin: 11/22/16 08:39 Dose: 1,000 mg Norepinephrine Bitartrate 8 mg (/ Sodium Chloride) 250 mls @ 3.75 mls/hr IV TITRATE BENJAMIN; 2 MCG/MIN PRN Reason: Protocol Last Titration: 11/22/16 10:56 Dose: 15 mcg/min, 28.12 mls/hr Dobutamine HCl/Dextrose () 500 mg in 250 mls @ 4.438 mls/hr IV TITRATE BENJAMIN; 2 MCG/KG/MIN PRN Reason: Protocol Last Admin: 11/22/16 08:40 Dose: 15 mcg/kg/min, 33.28 mls/hr Midazolam HCl 100 mg/ Sodium (Chloride) 100 mls @ 1.47 mls/hr IV TITRATE BENJAMIN; 0.02 MG/KG/HR PRN Reason: Protocol Last Titration: 11/22/16 10:45 Dose: 0 mg/kg/hr, 0 mls/hr Meropenem 500 mg/ Sodium (Chloride) 100 mls @ 200 mls/hr IV Q12H BENJAMIN Last Infusion: 11/22/16 05:37 Dose: Infused Propofol (Diprivan) 1,000 mg in 100 mls @ 2.343 mls/hr IV TITRATE BENJAMIN; 5 MCG/KG /MIN PRN Reason: Protocol Last Admin: 11/22/16 10:55 Dose: 5 mcg/kg/min, 2.34 mls/hr Sodium Bicarbonate 50 meq/ (Dextrose/Water) 1,050 mls @ 75 mls/hr IV .Q14H BENJAMIN Lorazepam (Ativan Inj) 1 mg IV Q1H PRN PRN Reason: Agitation Lorazepam (Ativan Inj) 2 mg IV Q1H PRN PRN Reason: Agitation Last Admin: 11/22/16 09:39 Dose: 2 mg Misoprostol (Cytotec) 400 mcg PER TUBE QID W/MEALS & HS BENJAMIN Ondansetron HCl (Zofran Inj) 4 mg IV Q4H PRN PRN Reason: Nausea Last Admin: 11/21/16 00:25 Dose: 4 mg Pantoprazole Sodium (Protonix Inj) 40 mg IV BID BENJAMIN Last Admin: 11/22/16 08:39 Dose: 40 mg Promethazine HCl (Phenergan Tab) 25 mg PO Q6H PRN PRN Reason: Nausea Venlafaxine HCl (Effexor) 225 mg PO DAILY BENJAMIN Last Admin: 11/22/16 08:39 Dose: 225 mg Exam (Progress Note) - Constitutional Vitals: Period Temp Pulse Resp BP Sys/Morse Pulse Ox Last 24 Hr 97.2 F-98.0 F 55-90 14-21 89-107/55-67 92-100 Exam: General: Appears well developed, well nourished, intubated and sedated in the intensive care unit HEENT: Normocephalic, atraumatic Neck: Supple Neck, Midline Trachea Cardiac: Regular rhythm, 2/6 systolic murmur, no gallop, no rub Lungs: Clear to auscultation per the ventilator, No Wheeze, Rales, Rhonchi Neuro: Intubated and sedated on the ventilator Abdomen: Soft, Active Bowel Sounds, No Masses, No Pulsations/Bruits Skin: Slight jaundice, no rash Extremities: No Clubbing, No Cyanosis, No Edema, Normal Upper Extr. Pulses Musculoskeletal: No acute abnormality noted Result/EKG - Labs CBC & BMP: 11/22/16 10:25 11/22/16 04:59 Lab Results: I have reviewed the past 24 hour labs Labs: Laboratory Results - last 24 hr 11/21/16 11/21/16 11/21/16 11:52 12:00 12:06 WBC 16.4 H D RBC 4.18 Hgb 12.2 Hct 37.9 MCV 90.7 MCH 29 MCHC 32.2 RDW 19.2 H Plt Count 140 MPV 12.7 H Neut % (Auto) 86.4 H Lymph % (Auto) 8.9 L [place] % (Auto) 3.4 Eos % (Auto) 0.0 Baso % (Auto) 0.1 Neut # (Auto) 14.1 H Lymph # (Auto) 1.5 [place] # (Auto) 0.6 Eos # (Auto) 0.0 Baso # (Auto) 0.0 Total Counted Immature Gran % 1.2 Nucleated RBC % 1.1 Immature Gran # 0.20 Segmented Neutrophils Band Neutrophils Lymphocytes Monocytes Nucleated RBCs Nucleated RBCs # 0.18 Platelet Estimate Giant Platelets Hypochromasia Ovalocytes [place] Cells Morphology Comment INR PT Patient/Control Mix Fibrinogen D-Dimer, Quantitative Circ Anticoag PTT ABG pH ABG pCO2 ABG pO2 ABG HCO3 ABG Total CO2 ABG O2 Saturation ABG Base Excess Sodium Potassium Chloride Carbon Dioxide Anion Gap BUN Creatinine GFR Calculation BUN/Creatinine Ratio Glucose POC Glucose Calculated Osmolality Lactic Acid Calcium Phosphorus Magnesium Total Bilirubin Direct Bilirubin Indirect Bilirubin AST ALT Alkaline Phosphatase Ammonia C-Reactive Protein B-Natriuretic Peptide Total Protein Albumin PTH Intact 493.4 H Acetaminophen 4.3 L 11/21/16 11/21/16 11/21/16 12:06 12:06 13:19 WBC RBC Hgb Hct MCV MCH MCHC RDW Plt Count MPV Neut % (Auto) Lymph % (Auto) [place] % (Auto) Eos % (Auto) Baso % (Auto) Neut # (Auto) Lymph # (Auto) [place] # (Auto) Eos # (Auto) Baso # (Auto) Total Counted Immature Gran % Nucleated RBC % Immature Gran # Segmented Neutrophils Band Neutrophils Lymphocytes Monocytes Nucleated RBCs Nucleated RBCs # Platelet Estimate Giant Platelets Hypochromasia Ovalocytes [place] Cells Morphology Comment INR > 20.0 H* PT Patient/Control Mix > 200.0 Fibrinogen 155 L D-Dimer, Quantitative 2.4 Circ Anticoag PTT 62.0 H ABG pH ABG pCO2 ABG pO2 ABG HCO3 ABG Total CO2 ABG O2 Saturation ABG Base Excess Sodium Potassium Chloride Carbon Dioxide Anion Gap BUN Creatinine GFR Calculation BUN/Creatinine Ratio Glucose POC Glucose 99 Calculated Osmolality Lactic Acid Calcium Phosphorus Magnesium Total Bilirubin Direct Bilirubin Indirect Bilirubin AST ALT Alkaline Phosphatase Ammonia C-Reactive Protein B-Natriuretic Peptide Total Protein Albumin PTH Intact Acetaminophen 11/21/16 11/21/16 11/21/16 14:29 14:45 16:07 WBC RBC Hgb Hct MCV MCH MCHC RDW Plt Count MPV Neut % (Auto) Lymph % (Auto) [place] % (Auto) Eos % (Auto) Baso % (Auto) Neut # (Auto) Lymph # (Auto) [place] # (Auto) Eos # (Auto) Baso # (Auto) Total Counted Immature Gran % Nucleated RBC % Immature Gran # Segmented Neutrophils Band Neutrophils Lymphocytes Monocytes Nucleated RBCs Nucleated RBCs # Platelet Estimate Giant Platelets Hypochromasia Ovalocytes [place] Cells Morphology Comment INR PT Patient/Control Mix Fibrinogen D-Dimer, Quantitative Circ Anticoag PTT ABG pH ABG pCO2 ABG pO2 ABG HCO3 ABG Total CO2 ABG O2 Saturation ABG Base Excess Sodium 139 Potassium 4.2 Chloride 104 Carbon Dioxide 15 L Anion Gap 24.2 H BUN 39 H Creatinine 2.30 H GFR Calculation 23 BUN/Creatinine Ratio 16.00 Glucose 176 H POC Glucose 144 H 173 H Calculated Osmolality 289.5 Lactic Acid Calcium 7.6 L Phosphorus Magnesium 1.7 L Total Bilirubin Direct Bilirubin Indirect Bilirubin AST ALT Alkaline Phosphatase Ammonia C-Reactive Protein B-Natriuretic Peptide Total Protein Albumin PTH Intact Acetaminophen 11/21/16 11/21/16 11/21/16 17:42 20:39 Unknown WBC RBC Hgb Hct MCV MCH MCHC RDW Plt Count MPV Neut % (Auto) Lymph % (Auto) [place] % (Auto) Eos % (Auto) Baso % (Auto) Neut # (Auto) Lymph # (Auto) [place] # (Auto) Eos # (Auto) Baso # (Auto) Total Counted Immature Gran % Nucleated RBC % Immature Gran # Segmented Neutrophils Band Neutrophils Lymphocytes Monocytes Nucleated RBCs Nucleated RBCs # Platelet Estimate Giant Platelets Hypochromasia Ovalocytes [place] Cells Morphology Comment INR PT Patient/Control Mix Fibrinogen D-Dimer, Quantitative Circ Anticoag PTT ABG pH ABG pCO2 ABG pO2 ABG HCO3 ABG Total CO2 ABG O2 Saturation ABG Base Excess Sodium Potassium Chloride Carbon Dioxide Anion Gap BUN Creatinine GFR Calculation BUN/Creatinine Ratio Glucose POC Glucose 218 H 217 H Calculated Osmolality Lactic Acid Calcium Phosphorus Magnesium Total Bilirubin Direct Bilirubin Indirect Bilirubin AST ALT Alkaline Phosphatase Ammonia C-Reactive Protein B-Natriuretic Peptide Total Protein 5.0 L Albumin PTH Intact Acetaminophen 11/22/16 11/22/16 11/22/16 00:13 04:58 04:59 WBC RBC Hgb Hct MCV MCH MCHC RDW Plt Count MPV Neut % (Auto) Lymph % (Auto) [place] % (Auto) Eos % (Auto) Baso % (Auto) Neut # (Auto) Lymph # (Auto) [place] # (Auto) Eos # (Auto) Baso # (Auto) Total Counted Immature Gran % Nucleated RBC % Immature Gran # Segmented Neutrophils Band Neutrophils Lymphocytes Monocytes Nucleated RBCs Nucleated RBCs # Platelet Estimate Giant Platelets Hypochromasia Ovalocytes [place] Cells Morphology Comment INR PT Patient/Control Mix Fibrinogen D-Dimer, Quantitative Circ Anticoag PTT ABG pH 7.549 H ABG pCO2 26.4 L ABG pO2 197.7 H ABG HCO3 22.5 ABG Total CO2 23.3 ABG O2 Saturation 99.1 ABG Base Excess 1.3 Sodium 139 Potassium 3.4 L Chloride 100 Carbon Dioxide 24 Anion Gap 18.4 H BUN 38 H Creatinine 2.60 H GFR Calculation 20 BUN/Creatinine Ratio 14.00 Glucose 171 H POC Glucose 216 H Calculated Osmolality 289.5 Lactic Acid Calcium 7.8 L Phosphorus Magnesium Total Bilirubin Direct Bilirubin Indirect Bilirubin AST ALT Alkaline Phosphatase Ammonia C-Reactive Protein B-Natriuretic Peptide Total Protein Albumin PTH Intact Acetaminophen 11/22/16 11/22/16 11/22/16 04:59 04:59 04:59 WBC 13.5 H RBC 4.17 Hgb 12.1 Hct 35.4 L MCV 84.9 L MCH 29 MCHC 34.2 RDW 18.7 H Plt Count 140 MPV 12.7 H Neut % (Auto) 87.9 H Lymph % (Auto) 7.6 L [place] % (Auto) 3.2 Eos % (Auto) 0.0 Baso % (Auto) 0.1 Neut # (Auto) 11.9 H Lymph # (Auto) 1.0 L [place] # (Auto) 0.4 Eos # (Auto) 0.0 Baso # (Auto) 0.0 Total Counted Immature Gran % 1.2 Nucleated RBC % 1.4 Immature Gran # 0.16 Segmented Neutrophils Band Neutrophils Lymphocytes Monocytes Nucleated RBCs Nucleated RBCs # 0.19 Platelet Estimate Giant Platelets Hypochromasia Ovalocytes [place] Cells Morphology Comment INR PT Patient/Control Mix Fibrinogen D-Dimer, Quantitative Circ Anticoag PTT ABG pH ABG pCO2 ABG pO2 ABG HCO3 ABG Total CO2 ABG O2 Saturation ABG Base Excess Sodium Potassium Chloride Carbon Dioxide Anion Gap BUN Creatinine GFR Calculation BUN/Creatinine Ratio Glucose POC Glucose Calculated Osmolality Lactic Acid Calcium Phosphorus Magnesium Total Bilirubin Direct Bilirubin Indirect Bilirubin AST ALT Alkaline Phosphatase Ammonia C-Reactive Protein 3.36 H B-Natriuretic Peptide 3777 H Total Protein Albumin PTH Intact Acetaminophen 11/22/16 11/22/16 11/22/16 04:59 04:59 04:59 WBC RBC Hgb Hct MCV MCH MCHC RDW Plt Count MPV Neut % (Auto) Lymph % (Auto) [place] % (Auto) Eos % (Auto) Baso % (Auto) Neut # (Auto) Lymph # (Auto) [place] # (Auto) Eos # (Auto) Baso # (Auto) Total Counted Immature Gran % Nucleated RBC % Immature Gran # Segmented Neutrophils Band Neutrophils Lymphocytes Monocytes Nucleated RBCs Nucleated RBCs # Platelet Estimate Giant Platelets Hypochromasia Ovalocytes [place] Cells Morphology Comment INR 8.0 H* PT Patient/Control Mix 96.8 D Fibrinogen D-Dimer, Quantitative Circ Anticoag PTT ABG pH ABG pCO2 ABG pO2 ABG HCO3 ABG Total CO2 ABG O2 Saturation ABG Base Excess Sodium Potassium Chloride Carbon Dioxide Anion Gap BUN Creatinine GFR Calculation BUN/Creatinine Ratio Glucose POC Glucose Calculated Osmolality Lactic Acid 4.3 H Calcium Phosphorus 2.9 Magnesium Total Bilirubin 4.50 H Direct Bilirubin 3.00 H Indirect Bilirubin 1.5 H AST > 2002 H ALT 1538 H Alkaline Phosphatase 86 Ammonia 43 H C-Reactive Protein B-Natriuretic Peptide Total Protein 4.3 L Albumin 2.4 L PTH Intact Acetaminophen 11/22/16 11/22/16 11/22/16 05:00 06:03 08:27 WBC RBC Hgb Hct MCV MCH MCHC RDW Plt Count MPV Neut % (Auto) Lymph % (Auto) [place] % (Auto) Eos % (Auto) Baso % (Auto) Neut # (Auto) Lymph # (Auto) [place] # (Auto) Eos # (Auto) Baso # (Auto) Total Counted Immature Gran % Nucleated RBC % Immature Gran # Segmented Neutrophils Band Neutrophils Lymphocytes Monocytes Nucleated RBCs Nucleated RBCs # Platelet Estimate Giant Platelets Hypochromasia Ovalocytes [place] Cells Morphology Comment INR PT Patient/Control Mix Fibrinogen D-Dimer, Quantitative Circ Anticoag PTT ABG pH ABG pCO2 ABG pO2 ABG HCO3 ABG Total CO2 ABG O2 Saturation ABG Base Excess Sodium Potassium Chloride Carbon Dioxide Anion Gap BUN Creatinine GFR Calculation BUN/Creatinine Ratio Glucose POC Glucose 166 H 153 H Calculated Osmolality Lactic Acid Calcium Phosphorus Magnesium 2.1 Total Bilirubin Direct Bilirubin Indirect Bilirubin AST ALT Alkaline Phosphatase Ammonia C-Reactive Protein B-Natriuretic Peptide Total Protein Albumin PTH Intact Acetaminophen 11/22/16 11/22/16 10:25 10:32 WBC 13.0 H RBC 4.02 Hgb 11.9 L Hct 33.9 L MCV 84.3 L MCH 30 MCHC 35.1 RDW 18.8 H Plt Count 111 L D MPV 12.1 H Neut % (Auto) 88.6 H Lymph % (Auto) 8.6 L [place] % (Auto) 2.1 Eos % (Auto) 0.0 Baso % (Auto) 0.2 Neut # (Auto) 11.5 H Lymph # (Auto) 1.1 L [place] # (Auto) 0.3 Eos # (Auto) 0.0 Baso # (Auto) 0.0 Total Counted 100 Immature Gran % 0.5 Nucleated RBC % 1.0 Immature Gran # 0.07 Segmented Neutrophils 91 H Band Neutrophils 2 Lymphocytes 6 L Monocytes 1 L Nucleated RBCs 2 Nucleated RBCs # 0.13 Platelet Estimate Decreased Giant Platelets Few Hypochromasia 1+ Ovalocytes Slight [place] Cells Slight Morphology Comment INR PT Patient/Control Mix Fibrinogen D-Dimer, Quantitative Circ Anticoag PTT ABG pH ABG pCO2 ABG pO2 ABG HCO3 ABG Total CO2 ABG O2 Saturation ABG Base Excess Sodium Potassium Chloride Carbon Dioxide Anion Gap BUN Creatinine GFR Calculation BUN/Creatinine Ratio Glucose POC Glucose 150 H Calculated Osmolality Lactic Acid Calcium Phosphorus Magnesium Total Bilirubin Direct Bilirubin Indirect Bilirubin AST ALT Alkaline Phosphatase Ammonia C-Reactive Protein B-Natriuretic Peptide Total Protein Albumin PTH Intact Acetaminophen - EKG EKG results: interpreted by me
[2016-11-22] MEDS: SODIUM BICARB INJ 50 MEQ in DEXTROSE 5% 1,000 ML IV SCH (12:13)
[2016-11-22] MEDS: miSOPROStol 200 MCG TABLET PER TUBE SCH ×3 (12:13→21:58)
[2016-11-22] MEDS ORDERED: POTASSIUM CHLORIDE RIDER 100 ML IV ONE (12:39)
[2016-11-22] MEDS: POTASSIUM CHLORIDE RIDER 20 MEQ in PREMIX 1 EACH IV SCH ×2 (12:44→13:47)
--- NOTE | 2016-11-22 13:25 | Pulmonology Progress Note ---
Pulmonary - PN: Subj Interval history: This is a 56-year-old white female whom I saw in pulmonary consultation on 2016. I was asked to treat her pulmonary status and manage mechanical ventilation. My impressions were. 1. Known heart disease with a past history of congestive heart failure and with acute congestive heart failure. Echocardiogram done 11/20/2016 showed left ventricular ejection fraction of 15% with global hypokinesis, moderate mitral regurgitation, mild to moderate tricuspid regurgitation. Aortic valve was normal. Pulmonary artery pressure was estimated to be 51 mmHg. I suspect that the pulmonary hypertension is related to the patient's mitral regurgitation. 2. History of cardiac arrhythmia requiring cardiac pacemaker 3. Acute cardiac arrest 4. Tobacco abuse 5. Toxicology. Positive opiates and cannabinoids. 6. Acute on chronic renal failure. 7. Severe hypotension with metabolic acidosis requiring pressor agents. 8. Abnormal liver function tests. 9. See above 10. Following my consultation was found that the patient was in mild liver failure. She had an INR greater than 20 with low fiber prevention. It is thought that we are dealing with disseminated intravascular coagulation. 11/22/2016. Today's chest x-ray shows cardiomegaly. There are increased interstitial markings which are compatible with very mild pulmonary edema. Endotracheal tube is in good position. INR is dropped to 8.0. ABGs on mechanical ventilation showed pH is 7.549. PCO2 is 26.4. PO2 is 198. Bicarb is 22.5. Potassium is low at 3.4. Sodium is 139. Creatinine is increased to 2.60 with a BUN of 38. AST is greater than 2000. ALT is 1538. Alkaline [place] is normal at 86. Total bilirubin is 4.50 with a direct bilirubin of 3.00 and indirect bilirubin 1.5. C-reactive protein is elevated at 3.36. Natruretic peptide is elevated at 3777. Protein and albumin are low at 4.3 and 2.4 respectively. Sedimentation rate is 1 which is what I would expect if fibrinogen is being consumed with a coagulopathy. There are no positive cultures. Patient remains on 2 pressor agents. She is also on antibiotics. She is not on steroids. Patient has been seen in cardiology consultation by Dr. Jose Aiken, renal consultation by Dr. Se Pulliam. Labs been reviewed. Medicines been reviewed. Doppler venograms of the lower extremities done 11/21/2016 showed no evidence of deep venous thrombophlebitis Ultrasound of the abdomen done 11/20/2016. Gallbladder sludge and/or micro- stones. No evidence of acute cholecystitis. Minimal left perinephric fluid of uncertain significance. No hydronephrosis. Physical exam. Vital signs. See below. Blood pressure requires 2 pressor agents. Chest. Rales. Heart. Far lateral PMI Abdomen. Only rare bowel sounds. Lower extremities. Skin changes of chronic venous stasis. Psychiatric. Impossible to discern. Neurological. Impossible to discern. Neck. No meningismus. Lymphatics. No submandibular cervical supraclavicular adenopathy. Plan. 11/21/2016. #1 repeat ABGs. 2. We will make ventilator adjustments. Patient will be put on the weaning protocol and physical therapy protocol. 3. Proton pump inhibitors 4. Follow-up chest x-ray and ABGs 5. Ammonia level 6. Thyroid function tests. 6. Doppler venograms of the lower extremities 7. Echocardiogram 8. Cardiology consultation 11/22/2016. 1. Weaning protocol. 2. Physical therapy protocol. 3. Daily chest x-ray and ABGs. 4. Daily lab. Exam (Progress Note) - Constitutional Vitals: Period Temp Pulse Resp BP Sys/Morse Pulse Ox Last 24 Hr 97.2 F-98.0 F 55-90 14-21 89-107/55-67 92-100 Results - Labs CBC & BMP: 11/22/16 10:25 11/22/16 04:59
[2016-11-22 15:55] LABS: ABG Base Excess 2.9 MMOL/L (-2.5-2.5); ABG PCO2 26.4 MM HG (35-48); ABG PH 7.566 (7.35-7.45); ABG TCO2 20.9 MMOL/L (23-27); Glucose Heart Surgery 159 MG/DL (74-106); Hematocrit Heart Surgery 38.2 PERCENT (37-47); Hemoglobin Heart Surgery 12.4 G/DL (12.0-16.0); Potassium Heart/CVR 3.6 MMOL/L (3.5-5.1)
[2016-11-22] MEDS: ACETYLCYSTEINE 20% 6,000 MG/30 ML VIAL PO SCH ×2 (18:16→21:57)
[2016-11-22] MEDS: PHYTONADIONE 10 MG/1 ML AMP SUBCUT SCH (21:58)
[2016-11-23] MEDS: ACETYLCYSTEINE 20% 6,000 MG/30 ML VIAL PO SCH ×6 (01:30→21:15)
[2016-11-23] MEDS: NOREPINEPHRINE 8 MG in SODIUM CHLORIDE 0.9% 242 ML IV SCH ×6 (02:04→23:35)
[2016-11-23] MEDS: MEROPENEM 500 MG in SODIUM CHLORIDE 0.9% 100 ML IV SCH ×2 (03:06→15:25)
[2016-11-23] MEDS: SODIUM BICARB INJ 50 MEQ in DEXTROSE 5% 1,000 ML IV SCH ×3 (03:21→23:32)
[2016-11-23 04:20] LABS: Basophils % 0.1 % (0.0-0.8); Eosinophils % 0.1 % (0.00-10.9); Hematocrit 35.2 VOL% (35.7-47.0); Hemoglobin 12.2 GM/DL (12.0-16.0); Immature Granulocytes % 1.3 %; Immature Granulocytes Absolute 0.19 #; Lymphocytes # 1.5 10*3/uL (1.4-4.0); Lymphocytes % 10.4 % (21.3-54.2); Mean Corpuscular HGB Conc 34.7 GM/DL (32-36); Mean Corpuscular Hemoglobin 29 PG (27-34); Mean Platelet Volume 12.3 FL (9.6-12.0); Monocytes # 0.5 10*3/uL (0.11-0.8); Monocytes % 3.4 % (1.7-12.7); NRBC # 0.08 10*3/uL; Neutrophils # 12.1 10*3/uL (1.4-7.4); Neutrophils % 84.7 % (38.7-73.9); Platelet Count 120 T/CUMM (130-400); Red Blood Count 4.19 MC/CUMM (3.8-5.5); White Blood Count 14.3 T/CUMM (4-12)
[2016-11-23 04:22] LABS: ABG Base Excess 3.9 MMOL/L (-2.5-2.5); ABG HCO3 24.3 MMOL/L (20-26); ABG Oxygen Saturation 98.2 % (95-100); ABG PO2 115.4 MM HG (80-95); ABG TCO2 25.1 MMOL/L (23-27)
[2016-11-23 04:23] LABS: ABG PH 7.606 (7.35-7.45)
[2016-11-23 04:33] LABS: INR 3.3
[2016-11-23 04:42] LABS: Lactic Acid 3.5 MMOL/L (0.4-2.0)
[2016-11-23 04:49] LABS: Calcium 7.6 MG/DL (8.5-10.1); Osmolality,Calculated 283.8 MOS/KG (273-304); Potassium 3.1 MMOL/L (3.5-5.1)
[2016-11-23 04:54] LABS: PT Patient Result 37.9 SECS
[2016-11-23 05:15] LABS: Albumin 2.1 G/DL (3.4-5.0); Bilirubin,Direct 3.2 MG/DL (0.0-0.20); Bilirubin,Indirect 1.7 MG/DL (0.0-1.0); Bilirubin,Total 4.9 MG/DL (0.2-1.0)
[2016-11-23 07:48] LABS: Albumin (SPE) 3.2 G/DL (3.2-5.3); Albumin (SPE) Rel % 64.8 %; Alpha 1 (SPE) 0.2 G/DL (0.1-0.4); Alpha 1 (SPE) Rel % 5.2 %; Alpha 2 (SPE) 0.4 G/DL (0.4-1.0); Alpha 2 (SPE) Rel % 7.2 %; Beta (SPE) 0.6 G/DL (0.5-1.1); Beta (SPE) Rel % 11.9 %; Gamma (SPE) 0.6 G/DL (0.7-1.7); Gamma (SPE) Rel % 10.9 %
[2016-11-23] MEDS: DOBUTamine 500 MG/250 ML PREMIX IV SCH ×2 (08:01→21:26)
--- NOTE | 2016-11-23 08:06 | XRay Report ---
XR chest 1V portable Indication: Ventilator Comparison: Chest x-ray dated November 22, 2016 Technique: Single frontal view of the chest. Findings: Continued cardiomegaly. Cardiac pacemaker apparatus again noted. Endotracheal tube tip approximately 3.2 cm above the fede. Continued small left pleural effusion and bibasilar atelectasis/consolidation. Visualized osseous and surrounding soft tissue structures appear grossly unchanged.. IMPRESSION: No significant interval change. PROCEDURE INTERPRETED AT [facility] DEPARTMENT OF RADIOLOGY Final Report Signed by: Dr Cortez Comer
--- NOTE | 2016-11-23 08:39 | Nephrology Progress Note ---
Nephrology - PN: Subj Interval history: WBC up, creatinine up to 2.9 from 2.6, peripheral smear to look for schistocytes (r/o TTP) pending pathology review, DIC, INR improved to 3.3. UOP increasing. Respiratory alkalosis, Serum CO2 25 on 50meq/bicarb. Started on misoprostol. Autoimmune hepatitis workup neg to date. Lactic acidosis improved. Still requiring 2 pressors to maintain MAPs. More agitated this am, chewing and tonguing the ETT. Moving all four extremities. Ammonia unchanged at 53. LAEs still climbing. Exam (PN)-Nephrology - Vital Signs Vital signs: Period Temp Pulse Resp BP Sys/Morse Pulse Ox Last 24 Hr 96.4 F-98.4 F 70-83 13-19 90-107/52-68 93-100 - General Appearance General appearance: chronically ill, sedated on ventilator, intubated EENT: ATNC, PERRL, mucous membranes dry, hearing intact, vision intact Neck: JVD, no thyromegaly Respiratory: no kyphosis, clear Cardiology: no murmurs, no rub, no edema Gastrointestinal: normoactive bowel sounds, no tenderness Integumentary: no rash, warm and dry Neurologic: no focal deficit, no asterixis, alert and oriented x3 Musculoskeletal: no deformities, no erythema - Lab 11/23/16 04:00 11/23/16 04:00 Most recent lab results ABG pH 7.606 (7.35-7.45) H 11/23/16 04:00 ABG pCO2 25.0 MM HG (35-48) L 11/23/16 04:00 ABG pO2 115.4 MM HG (80-95) H 11/23/16 04:00 ABG HCO3 24.3 MMOL/L (20-26) 11/23/16 04:00 ABG O2 Saturation 98.2 % (95-100) 11/23/16 04:00 Calcium 7.6 MG/DL (8.5-10.1) L 11/23/16 04:00 Phosphorus 2.9 MG/DL (2.5-4.9) 11/22/16 04:59 Magnesium 2.1 MG/DL (1.8-2.4) 11/22/16 05:00 Assessment and Plan (1) NADIA (acute kidney injury) Problem details: No acute indication for renal replacement therapy. Status: Acute Assessment and plan: Continue IVFs at maintenance rate (75cc/hr). Current Visit: Yes (2) Metabolic acidosis Problem details: Lactate is an independent predictor of mortality. Most common causes of lactic acidosis: 1) sepsis (49%) 2) liver dz (15%) 3) resp failure 12% . Status: Acute Assessment and plan: Continue current IVFs. Increase sedation to help reverse resp alkalosis. Current Visit: Yes (3) Altered mental status Problem details: Sepsis, polysubstance abuse, hepatic encephalopathy all in the differential. Status: Acute Assessment and plan: No identified infection to date. Current Visit: Yes (4) Elevated LFTs Problem details: Acute and chronic appearing liver abnormalities, poor synthetic function, low platelets. Appears to have DIC. Status: Acute Assessment and plan: Send peripheral smear to evaluate for schistocytosis, TTP, pending pathologist review. Continue misoprostol to help reverse intrinsic renal vasoconstriction seen with liver failure. Current Visit: Yes (5) Cardiorespiratory failure Status: Acute Current Visit: Yes
--- NOTE | 2016-11-23 09:02 | Physician Query Form ---
CLICK EDIT DOCUMENT TO SELECT QUERY ANSWER --> OK --> SIGN Yeny Saenz RN, CCDS Certified Clinical Durable Medical Equipment Technician W) [phone] (f) [phone] [email or web address] PROVIDERS: Make your selection(s) from the choices in EACH section by typing an "x" and enter comments in the comment section. Please use your independent medical judgment in providing your response. This request does not imply that any particular answer is desired or expected. CLINICAL INDICATORS: (Providers should not edit this section) The medical record indicates that the patient was admitted to the ER on the 2nd , coded on the 3rd, BP of 83/58---55/44 in the ER, and the patient was later placed on "2 pressors almost maxed out". Based on the above, could you clarify the appropriate diagnosis, if significant , that supports the above abnormalities and additional evaluation, monitoring, and/or treatment rendered: ( ) NADIA with ATN ( ) NADIA without ATN ( ) Other, please specify: ( ) Clinically unable to determine COMMENTS: PLEASE ALSO DOCUMENT RESPONSE IN PROGRESS NOTES AND/OR DISCHARGE SUMMARY Use of terms such as suspected, likely, or probable (associated with a specific diagnosis that is being evaluated, monitored, or treated as if it exists) are acceptable and can be restated in the discharge summary if not ruled out. MTDD
--- NOTE | 2016-11-23 09:04 | Physician Query Form ---
CLICK EDIT DOCUMENT TO SELECT QUERY ANSWER --> OK --> SIGN Yeny Saenz RN, CCDS Certified Clinical Computer Aided Design Technician W) [phone] (f) [phone] [email or web address] PROVIDERS: Make your selection(s) from the choices in EACH section by typing an "x" and enter comments in the comment section. Please use your independent medical judgment in providing your response. This request does not imply that any particular answer is desired or expected. CLINICAL INDICATORS: (Providers should not edit this section) The medical record indicates that the patient was admitted to the ER on the 2nd , coded on the 3rd, BP of 83/58---55/44 in the ER, and the patient was later placed on "2 pressors almost maxed out". Please clarify which, if any, of the following is the etiology of the above symptoms and treatment rendered: (X ) Hypovolemic shock ( ) Septic shock ( ) Cardiogenic shock ( ) Hemorrhagic shock ( ) Traumatic shock ( ) Shock due to, please specify etiology: ( ) Shock, unknown etiology ( ) Drug induced, please specify substance: ( ) Iatrogenic Hypotension ( ) Orthostatic Hypotension ( ) Hypotension, unknown etiology ( ) Other, please specify: ( ) Clinically unable to determine COMMENTS: PLEASE ALSO DOCUMENT RESPONSE IN PROGRESS NOTES AND/OR DISCHARGE SUMMARY Use of terms such as suspected, likely, or probable (associated with a specific diagnosis that is being evaluated, monitored, or treated as if it exists) are acceptable and can be restated in the discharge summary if not ruled out. MTDD
--- NOTE | 2016-11-23 09:06 | Physician Query Form ---
CLICK EDIT DOCUMENT TO SELECT QUERY ANSWER --> OK --> SIGN Yeny Saenz RN, CCDS Certified Clinical Cattle Brander W) [phone] (f) [phone] [email or web address] PROVIDERS: Make your selection(s) from the choices in EACH section by typing an "x" and enter comments in the comment section. Please use your independent medical judgment in providing your response. This request does not imply that any particular answer is desired or expected. CLINICAL INDICATORS: (Providers should not edit this section) The medical record indicates that the patient was admitted to the ER on the 2nd , coded on the 3rd, creatinine of 1.70 on the 2nd that has gradually increased to 2.90 on the 5th, and the patient is on "2 pressors almost maxed out". Based on the above, could you clarify the appropriate diagnosis, if significant , that supports the above abnormalities and additional evaluation, monitoring, and/or treatment rendered: (X ) NADIA with ATN ( ) NADIA without ATN ( ) Other, please specify: ( ) Clinically unable to determine COMMENTS: PLEASE ALSO DOCUMENT RESPONSE IN PROGRESS NOTES AND/OR DISCHARGE SUMMARY Use of terms such as suspected, likely, or probable (associated with a specific diagnosis that is being evaluated, monitored, or treated as if it exists) are acceptable and can be restated in the discharge summary if not ruled out. MTDD
[2016-11-23] MEDS: PANTOPRAZOLE 40 MG VIAL IV SCH ×2 (09:15→21:26)
[2016-11-23] MEDS: POTASSIUM CHLORIDE RIDER 20 MEQ in PREMIX 1 EACH IV PRN ×2 (09:15→11:21)
[2016-11-23] MEDS: VENLAFAXINE 75 MG TABLET PO SCH (09:17)
[2016-11-23] MEDS: ASCORBIC ACID 500 MG TABLET PO SCH ×2 (09:18→21:15)
[2016-11-23] MEDS: miSOPROStol 200 MCG TABLET PER TUBE SCH ×4 (09:18→21:15)
[2016-11-23] MEDS: POTASSIUM CHLORIDE 20 MEQ/15 ML UDCUP PER TUBE SCH ×3 (09:18→21:15)
[2016-11-23] MEDS: PHYTONADIONE 10 MG/1 ML AMP SUBCUT SCH ×2 (09:19→21:44)
--- NOTE | 2016-11-23 09:31 | Cardiology Progress Note ---
Assessment and Plan - Time spent with patient Time spent with patient: Greater than 30 minutes (1) Cardiomyopathy Status: Chronic Assessment and plan: SEE PLAN OF CARE LISTED BELOW Current Visit: Yes (2) Cardiorespiratory failure Status: Acute Assessment and plan: SEE PLAN OF CARE LISTED BELOW Current Visit: Yes (3) Coagulopathy Status: Acute Assessment and plan: SEE PLAN OF CARE LISTED BELOW Current Visit: Yes (4) GI bleed Status: Acute Assessment and plan: SEE PLAN OF CARE LISTED BELOW Current Visit: Yes (5) Metabolic acidosis Problem details: Lactate is an independent predictor of mortality. Most common causes of lactic acidosis: 1) sepsis (49%) 2) liver dz (15%) 3) resp failure 12% . Status: Acute Assessment and plan: SEE PLAN OF CARE LISTED BELOW Current Visit: Yes (6) Pacemaker Status: Chronic Assessment and plan: SEE PLAN OF CARE LISTED BELOW Current Visit: Yes (7) Polysubstance abuse Status: Acute Assessment and plan: SEE PLAN OF CARE LISTED BELOW Current Visit: Yes Cardiology - PN: Subj Interval history: SOULEYMANE TO COMPLETE DRAPERY AND UPHOLSTERY MEASURER: DR. WU SUMMARY: Ms. Hall, 56WF, has a long-standing history of cardiomyopathy, status post pacemaker implantation followed by Dr. Wu in [place]. History of polysubstance abuse including cannabinoids, opiates and benzodiazepines. Patient was admitted to the ICU of [facility] with mental status changes and confusion. The evening of admission, patient coded but did not lose her heart rhythm though she did lose her pulse transiently. This responded to vasopressors. She has been housed in our ICU requiring Dobutamine and Levophed. She is currently also on IV sodium bicarbonate to treat her metabolic acidosis of unknown etiology. Liver function tests remain abnormal ( suspected to be related to hypotension). Cardiac enzyme panel is not consistent with acute coronary syndrome. Echocardiogram reveals EF 15% with global hypokinesis, moderate mitral regurgitation. PAP 51 mmHg. Eliquis has been held since November 21, 2016 due to possible GI bleed and coagulopathy (INR greater than 20). NOVEMBER 23, 2016: Patient is being treated for sepsis. Her metabolic acidosis is slowly improving. Continues to require mechanical ventilation due to cardiorespiratory failure. Still requiring vasopressors. Her prognosis is poor. She is hypokalemic. We will continue to follow her labs closely daily. I will ask that telemetry monitoring be recorded and scanned in in order to assess her rhythm. ASSESSMENT/PLAN: 1. CARDIOPULMONARY ARREST - currently requiring mechanical ventilation and vasopressor support. Poor prognosis 2. POLYSUBSTANCE ABUSE - continue current plan of care 3. CARDIOMYOPATHY - EF 15%. Etiology unknown, duration unknown. 4. METABOLIC ACIDOSIS - slowly improving. 5. ACUTE RENAL FAILURE - stage IV. Unknown if this acute on chronic. 6. SUSPECTED SEPSIS - uncertain at this time. Continue current plan of care 7. COAGULOPATHY - improving slowly. Holding Eliquis 8. S/P PACEMAKER - followed by Dr. Wu in [place], [place] Exam (Progress Note) - Constitutional Vitals: Period Temp Pulse Resp BP Sys/Morse Pulse Ox Last 24 Hr 96.4 F-98.4 F 70-83 8-19 90-107/52-68 93-100 Exam: General: [Appears ill. ] [Appears comfortable.] HEENT: [Normocephalic, atraumatic. Mucous membranes moist. No jaundice noted. Conjunctiva moist and clear, sclerae anicteric] Neck: No obvious JVD/HJR, no thyromegaly or lymphadenopathy noted. No carotid bruit appreciated Cardiac: [Regular rate and rhythm.] [No obvious murmur rub or gallop.] Lungs: [Rhonchi noted throughout. Intubated with symmetrical chest wall movements. Abdomen: Soft, bowel sounds normoactive. Nontender and nondistended. No abdominal bruit or thrill noted. No masses noted. Musculoskeletal: No fluid collection. Decreased range of motion is noted. Extremities: No clubbing, cyanosis noted. [Trace bilateral lower extremity edema noted.] Upper extremity pulses 2+. Lower extremity pulses 2+. Capillary refill less than 3 seconds. Skin: No unusual lesions or rashes. No skin breakdown appreciated. Neuro: Sedated, moving extremities when sedation with health. No essential tremor is appreciated. Result/EKG - Labs CBC & BMP: 11/23/16 04:00 11/23/16 04:00 Lab Results: I have reviewed the past 24 hour labs Labs: Laboratory Results - last 24 hr 11/21/16 11/21/16 11/22/16 Unknown Unknown 10:25 WBC 13.0 H RBC 4.02 Hgb 11.9 L Hct 33.9 L MCV 84.3 L MCH 30 MCHC 35.1 RDW 18.8 H Plt Count 111 L D MPV 12.1 H Neut % (Auto) 88.6 H Lymph % (Auto) 8.6 L [place] % (Auto) 2.1 Eos % (Auto) 0.0 Baso % (Auto) 0.2 Neut # (Auto) 11.5 H Lymph # (Auto) 1.1 L [place] # (Auto) 0.3 Eos # (Auto) 0.0 Baso # (Auto) 0.0 Total Counted 100 Immature Gran % 0.5 Nucleated RBC % 1.0 Immature Gran # 0.07 Segmented Neutrophils 91 H Band Neutrophils 2 Lymphocytes 6 L Monocytes 1 L Nucleated RBCs 2 Nucleated RBCs # 0.13 Platelet Estimate Decreased Giant Platelets Few Hypochromasia 1+ Ovalocytes Slight [place] Cells Slight Morphology Comment INR PT Patient/Control Mix ABG pH ABG pCO2 ABG pO2 ABG HCO3 ABG Total CO2 ABG O2 Saturation ABG Base Excess Hemoglobin Hematocrit Potassium Glucose Sodium Chloride Carbon Dioxide Anion Gap BUN Creatinine GFR Calculation BUN/Creatinine Ratio POC Glucose Calculated Osmolality Lactic Acid Calcium Total Bilirubin Direct Bilirubin Indirect Bilirubin AST ALT Alkaline Phosphatase Ammonia B-Natriuretic Peptide Total Protein Albumin Pro Electrophoresis Int See comment Serum Total Protein PEP 5.0 L Albumin (PEP) 3.2 Albumin (relative) 64.8 Gddur-1-Edztukxw 0.2 Rkogw-5-Xlhfcxkl rel 5.2 Zbqtu-0-Zwqnppnh 0.4 Gyrex-1-Brnqfpra rel 7.2 Jzzz-4-Qyplbjdo 0.6 Hdyq-3-Yckhshxj rel 11.9 Gamma Globulins 0.6 L Gamma Globulins rel 10.9 HARI Screen Negative (<1:160) 11/22/16 11/22/16 11/22/16 10:32 12:42 14:16 WBC RBC Hgb Hct MCV MCH MCHC RDW Plt Count MPV Neut % (Auto) Lymph % (Auto) [place] % (Auto) Eos % (Auto) Baso % (Auto) Neut # (Auto) Lymph # (Auto) [place] # (Auto) Eos # (Auto) Baso # (Auto) Total Counted Immature Gran % Nucleated RBC % Immature Gran # Segmented Neutrophils Band Neutrophils Lymphocytes Monocytes Nucleated RBCs Nucleated RBCs # Platelet Estimate Giant Platelets Hypochromasia Ovalocytes [place] Cells Morphology Comment INR PT Patient/Control Mix ABG pH ABG pCO2 ABG pO2 ABG HCO3 ABG Total CO2 ABG O2 Saturation ABG Base Excess Hemoglobin Hematocrit Potassium Glucose Sodium Chloride Carbon Dioxide Anion Gap BUN Creatinine GFR Calculation BUN/Creatinine Ratio POC Glucose 150 H 134 H 98 Calculated Osmolality Lactic Acid Calcium Total Bilirubin Direct Bilirubin Indirect Bilirubin AST ALT Alkaline Phosphatase Ammonia B-Natriuretic Peptide Total Protein Albumin Pro Electrophoresis Int Serum Total Protein PEP Albumin (PEP) Albumin (relative) Etzzr-8-Cadyxncn Figes-3-Jyhuftgb rel Lxbpx-6-Elhmkhec Kerpm-2-Qalcucme rel Rgqj-5-Zfpymyrm Symu-5-Yvuzxnxx rel Gamma Globulins Gamma Globulins rel HARI Screen 11/22/16 11/22/16 11/23/16 15:50 18:09 02:08 WBC RBC Hgb Hct MCV MCH MCHC RDW Plt Count MPV Neut % (Auto) Lymph % (Auto) [place] % (Auto) Eos % (Auto) Baso % (Auto) Neut # (Auto) Lymph # (Auto) [place] # (Auto) Eos # (Auto) Baso # (Auto) Total Counted Immature Gran % Nucleated RBC % Immature Gran # Segmented Neutrophils Band Neutrophils Lymphocytes Monocytes Nucleated RBCs Nucleated RBCs # Platelet Estimate Giant Platelets Hypochromasia Ovalocytes [place] Cells Morphology Comment INR PT Patient/Control Mix ABG pH 7.566 H ABG pCO2 26.4 L ABG pO2 116.0 H ABG HCO3 27.0 H ABG Total CO2 20.9 L ABG O2 Saturation 99.0 ABG Base Excess 2.9 H Hemoglobin 12.4 Hematocrit 38.2 Potassium 3.6 Glucose 159 H Sodium Chloride Carbon Dioxide Anion Gap BUN Creatinine GFR Calculation BUN/Creatinine Ratio POC Glucose 149 H 157 H Calculated Osmolality Lactic Acid Calcium Total Bilirubin Direct Bilirubin Indirect Bilirubin AST ALT Alkaline Phosphatase Ammonia B-Natriuretic Peptide Total Protein Albumin Pro Electrophoresis Int Serum Total Protein PEP Albumin (PEP) Albumin (relative) Ngwiu-8-Hnmkijfg Jpwyn-8-Rzgeimdj rel Cwbnx-6-Bxtxkjqv Owisg-9-Aeepewcu rel Eeqx-9-Nsvoeibk Idrs-6-Ihekqifa rel Gamma Globulins Gamma Globulins rel HARI Screen 11/23/16 11/23/16 11/23/16 04:00 04:00 04:00 WBC RBC Hgb Hct MCV MCH MCHC RDW Plt Count MPV Neut % (Auto) Lymph % (Auto) [place] % (Auto) Eos % (Auto) Baso % (Auto) Neut # (Auto) Lymph # (Auto) [place] # (Auto) Eos # (Auto) Baso # (Auto) Total Counted Immature Gran % Nucleated RBC % Immature Gran # Segmented Neutrophils Band Neutrophils Lymphocytes Monocytes Nucleated RBCs Nucleated RBCs # Platelet Estimate Giant Platelets Hypochromasia Ovalocytes [place] Cells Morphology Comment INR PT Patient/Control Mix ABG pH 7.606 H ABG pCO2 25.0 L ABG pO2 115.4 H ABG HCO3 24.3 ABG Total CO2 25.1 ABG O2 Saturation 98.2 ABG Base Excess 3.9 H Hemoglobin Hematocrit Potassium 3.1 L Glucose 152 H Sodium 137 Chloride 97 L Carbon Dioxide 26 Anion Gap 17.1 H BUN 36 H Creatinine 2.90 H GFR Calculation 18 BUN/Creatinine Ratio 12.00 POC Glucose Calculated Osmolality 283.8 Lactic Acid Calcium 7.6 L Total Bilirubin Direct Bilirubin Indirect Bilirubin AST ALT Alkaline Phosphatase Ammonia B-Natriuretic Peptide 1999 H Total Protein Albumin Pro Electrophoresis Int Serum Total Protein PEP Albumin (PEP) Albumin (relative) Xkmkc-2-Caxgmmxp Amfbh-2-Qpbjeifw rel Frsut-7-Jtvqcvlt Unwiq-5-Vgfvtcmf rel Uzeq-3-Gtzggkjw Pfbm-7-Mrrsdopv rel Gamma Globulins Gamma Globulins rel HARI Screen 11/23/16 11/23/16 11/23/16 04:00 04:00 04:00 WBC 14.3 H RBC 4.19 Hgb 12.2 Hct 35.2 L MCV 84.0 L MCH 29 MCHC 34.7 RDW 19.0 H Plt Count 120 L MPV 12.3 H Neut % (Auto) 84.7 H Lymph % (Auto) 10.4 L [place] % (Auto) 3.4 Eos % (Auto) 0.1 Baso % (Auto) 0.1 Neut # (Auto) 12.1 H Lymph # (Auto) 1.5 [place] # (Auto) 0.5 Eos # (Auto) 0.0 Baso # (Auto) 0.0 Total Counted Immature Gran % 1.3 Nucleated RBC % 0.6 Immature Gran # 0.19 Segmented Neutrophils Band Neutrophils Lymphocytes Monocytes Nucleated RBCs Nucleated RBCs # 0.08 Platelet Estimate Giant Platelets Hypochromasia Ovalocytes Dmitriy Cells Morphology Comment INR 3.3 PT Patient/Control Mix 37.9 D ABG pH ABG pCO2 ABG pO2 ABG HCO3 ABG Total CO2 ABG O2 Saturation ABG Base Excess Hemoglobin Hematocrit Potassium Glucose Sodium Chloride Carbon Dioxide Anion Gap BUN Creatinine GFR Calculation BUN/Creatinine Ratio POC Glucose Calculated Osmolality Lactic Acid Calcium Total Bilirubin 4.90 H Direct Bilirubin 3.20 H Indirect Bilirubin 1.7 H AST 2565 H ALT 1152 H Alkaline Phosphatase 89 Ammonia B-Natriuretic Peptide Total Protein 4.0 L Albumin 2.1 L Pro Electrophoresis Int Serum Total Protein PEP Albumin (PEP) Albumin (relative) Rqccq-5-Znbreakm Onatw-5-Uogwbxkr rel Mojdk-9-Phoyzifw Wedrn-8-Zyawsyfy rel Wuae-1-Rawfwzcv Jkdk-5-Rtlpdlck rel Gamma Globulins Gamma Globulins rel HARI Screen 11/23/16 11/23/16 04:16 06:43 WBC RBC Hgb Hct MCV MCH MCHC RDW Plt Count MPV Neut % (Auto) Lymph % (Auto) [place] % (Auto) Eos % (Auto) Baso % (Auto) Neut # (Auto) Lymph # (Auto) [place] # (Auto) Eos # (Auto) Baso # (Auto) Total Counted Immature Gran % Nucleated RBC % Immature Gran # Segmented Neutrophils Band Neutrophils Lymphocytes Monocytes Nucleated RBCs Nucleated RBCs # Platelet Estimate Giant Platelets Hypochromasia Ovalocytes Dmitriy Cells Morphology Comment INR PT Patient/Control Mix ABG pH ABG pCO2 ABG pO2 ABG HCO3 ABG Total CO2 ABG O2 Saturation ABG Base Excess Hemoglobin Hematocrit Potassium Glucose Sodium Chloride Carbon Dioxide Anion Gap BUN Creatinine GFR Calculation BUN/Creatinine Ratio POC Glucose 151 H Calculated Osmolality Lactic Acid 3.5 H Calcium Total Bilirubin Direct Bilirubin Indirect Bilirubin AST ALT Alkaline Phosphatase Ammonia 53 H B-Natriuretic Peptide Total Protein Albumin Pro Electrophoresis Int Serum Total Protein PEP Albumin (PEP) Albumin (relative) Kmczv-3-Sumjhrts Iabft-2-Sttixfja rel Vjeyf-5-Vtlszlds Hbvdn-9-Ouvbqttl rel Izio-8-Kkqpbjls Dvcj-7-Fsrkmcqk rel Gamma Globulins Gamma Globulins rel HARI Screen - Diagnostic Findings Procedure: Chest x-ray: report reviewed by me
[2016-11-23] MEDS: PROPOFOL 1,000 MG/100 ML BOTTLE IV SCH (10:21)
--- NOTE | 2016-11-23 11:07 | Pulmonology Progress Note ---
Pulmonary - PN: Subj Interval history: This is a 56-year-old white female whom I saw in pulmonary consultation on 2016. I was asked to treat her pulmonary status and manage mechanical ventilation. My impressions were. 1. Known heart disease with a past history of congestive heart failure and with acute congestive heart failure. Echocardiogram done 11/20/2016 showed left ventricular ejection fraction of 15% with global hypokinesis, moderate mitral regurgitation, mild to moderate tricuspid regurgitation. Aortic valve was normal. Pulmonary artery pressure was estimated to be 51 mmHg. I suspect that the pulmonary hypertension is related to the patient's mitral regurgitation. 2. History of cardiac arrhythmia requiring cardiac pacemaker 3. Acute cardiac arrest 4. Tobacco abuse 5. Toxicology. Positive opiates and cannabinoids. 6. Acute on chronic renal failure. 7. Severe hypotension with metabolic acidosis requiring pressor agents. 8. Abnormal liver function tests. 9. See above 10. Following my consultation was found that the patient was in mild liver failure. She had an INR greater than 20 with low fiber prevention. It is thought that we are dealing with disseminated intravascular coagulation. 11/22/2016. Today's chest x-ray shows cardiomegaly. There are increased interstitial markings which are compatible with very mild pulmonary edema. Endotracheal tube is in good position. INR is dropped to 8.0. ABGs on mechanical ventilation showed pH is 7.549. PCO2 is 26.4. PO2 is 198. Bicarb is 22.5. Potassium is low at 3.4. Sodium is 139. Creatinine is increased to 2.60 with a BUN of 38. AST is greater than 2000. ALT is 1538. Alkaline Brothers is normal at 86. Total bilirubin is 4.50 with a direct bilirubin of 3.00 and indirect bilirubin 1.5. C-reactive protein is elevated at 3.36. Natruretic peptide is elevated at 3777. Protein and albumin are low at 4.3 and 2.4 respectively. Sedimentation rate is 1 which is what I would expect if fibrinogen is being consumed with a coagulopathy. There are no positive cultures. Patient remains on 2 pressor agents. She is also on antibiotics. She is not on steroids. Patient has been seen in cardiology consultation by Dr. Jose Aiken, renal consultation by Dr. Se Pulliam. 11/23/2016. Chest x-ray shows cardiomegaly. Left diaphragm is not visible. There are bilateral increased interstitial markings compatible with congestive heart failure. Endotracheal tube is near the fede. ABGs are noted and discussed with Dr. Se Pulliam. Adjustments have been made and mechanical ventilation and follow-up ABGs are pending. Potassium is low at 3.1 is being replaced. Creatinine is 2.90 with a BUN of 36. This patient continues to have an elevated lactic acid level at 3.5 she is on 2 pressor agents. Her calcium is low at 7.3 and albumin is low at 2.1 total proteins of 4.0. Natruretic peptide is gradually decreasing but remains elevated 1998. Total bilirubin is 4.90. Direct bilirubin is 3.20. AST and ALT are 2565 and 1152 respectively. Alkaline Viral is normal. Ammonia level is elevated at 53. White blood cell count is 14,300 with 85 segs. H&H is 12.2/35.2. Platelets have increased to 120,000 and INR is dropped to 3.3. This patient was tried on a T-tube for a few minutes but she could not tolerate it. We will continue weaning protocol with CPAP. Patient is has multi-organ disease and I suspect she will be very slow to wean from mechanical ventilation. Labs been reviewed. Medicines been reviewed. Doppler venograms of the lower extremities done 11/21/2016 showed no evidence of deep venous thrombophlebitis Ultrasound of the abdomen done 11/20/2016. Gallbladder sludge and/or micro- stones. No evidence of acute cholecystitis. Minimal left perinephric fluid of uncertain significance. No hydronephrosis. Physical exam. Vital signs. See below. Blood pressure requires 2 pressor agents. Chest. Rales. Heart. Far lateral PMI Abdomen. Only rare bowel sounds. Lower extremities. Skin changes of chronic venous stasis. Psychiatric. Impossible to discern. Neurological. Impossible to discern. Neck. No meningismus. Lymphatics. No submandibular cervical supraclavicular adenopathy. Plan. 11/21/2016. #1 repeat ABGs. 2. We will make ventilator adjustments. Patient will be put on the weaning protocol and physical therapy protocol. 3. Proton pump inhibitors 4. Follow-up chest x-ray and ABGs 5. Ammonia level 6. Thyroid function tests. 6. Doppler venograms of the lower extremities 7. Echocardiogram 8. Cardiology consultation 11/22/2016. 1. Weaning protocol. 2. Physical therapy protocol. 3. Daily chest x-ray and ABGs. 4. Daily lab. 11/23/2016. 1. See today's note above Exam (Progress Note) - Constitutional Vitals: Period Temp Pulse Resp BP Sys/Morse Pulse Ox Last 24 Hr 96.4 F-98.4 F 71-83 8-35 89-108/52-81 89-100 Results - Labs CBC & BMP: 11/23/16 04:00 11/23/16 04:00
--- NOTE | 2016-11-23 11:21 | Gastrointestinal Progress Note ---
<Antonella Sarmiento - Last Filed: 11/23/16 11:33> Assessment and Plan (1) GI bleed Status: Acute Assessment and plan: 11/23-No further hemetemsis with stable H/H. Continues on Dobutamine and Levophed. INR improved at 3.3. Continue to monitor for further bleeding. Plan and addendum to follow by Dr Gaona. Current Visit: Yes Gastroenterology - PN: Subj Interval history: CC: Hemetemesis, cirrhosis Pt seen, sedated, and intubated in ICU. She was dmitted on 11/20 with encephalopathy with possibly medications being a factor due to noncompliance with her meds. She has a 20 year history of ETOH use with question as to if patient continues to drink at this time or not by family, as well as known regular THC use. She was coded on 11/21 and placed on the vent and pressors at that time. On admission she was noted to have mildly elevated LFTs. Pt is noted to not tolerate t-tube trials at this time. She remains on two pressors at present time. Her hemoglobin is holding at 12.2 and has not required any transfusions at this time. She had reported hemetemesis via NG tube on 11/21 with findings at that time of INR greater than 20. Her NG tube is now clamped with no further reports of hemetemsis. LFTs remain elevated at this time with bilirubin 4.9, AST 2565, and ALT 1152. Ammonia level is at 53. She continues to have labile blood pressure at this time with the pressor support. INR has trended downward at 3.3. She was on Eliquis at admission however this was held as of 11/21. ROS: Denies SOB or chest pain Exam (Progress Note) - Constitutional Vitals: Period Temp Pulse Resp BP Sys/Morse Pulse Ox Last 24 Hr 96.4 F-98.4 F 71-83 8-45 89-108/52-81 89-100 General appearance: normal weight, no acute distress - Head Head exam: Present: normal inspection, normocephalic - Eye Eye exam: Present: other (lids and conjunctiva unremarkable). Absent: scleral icterus - ENT ENT exam: Present: normal exam, normal oropharynx - Neck Neck exam: Present: normal inspection - Respiratory Respiratory exam: Present: clear to auscultation bilaterally. Absent: rales, rhonchi, wheezes - Cardiovascular Cardiovascular exam: Present: regular rate and rhythm. Absent: diastolic murmur , JVD, systolic murmur - GI/Abdominal GI/Abdominal exam: Present: normal bowel sounds, soft. Absent: ascites, distended, mass, organomegaly, tenderness - Extremities Exam Extremities exam: Present: normal inspection - Back Exam Back exam: Present: normal inspection - Neurological Exam Neurological exam: Present: altered - Psychiatric Psychiatric exam: Present: other - Skin Skin exam: Present: normal color, warm, dry Results - Labs CBC & BMP: 11/23/16 04:00 11/23/16 04:00 Lab Results: I have reviewed the past 24 hour labs <Adin Gaona - Last Filed: 11/23/16 13:05> Exam (Progress Note) - Constitutional Vitals: Period Temp Pulse Resp BP Sys/Morse Pulse Ox Last 24 Hr 96.4 F-98.2 F 72-85 8-45 84-108/48-81 89-100 Results - Labs CBC & BMP: 11/23/16 04:00 11/23/16 04:00
[2016-11-23] MEDS: MIDAZOLAM 100 MG in SODIUM CHLORIDE 0.9% 80 ML IV SCH (11:45)
--- NOTE | 2016-11-23 12:05 | Hospitalist Progress Note ---
Assessment and Plan (1) Elevated LFTs Problem details: Acute and chronic appearing liver abnormalities, poor synthetic function, low platelets. Appears to have DIC. Status: Acute Assessment and plan: The patient continues on supportive care for liver failure. Will recheck bilirubin tomorrow as well as INR. The patient continues on Mucomyst and vitamin K. I am going to reduce her minute ventilation today as she is alkalotic. Current Visit: Yes (2) Cardiorespiratory failure Status: Acute Current Visit: Yes (3) Cardiomyopathy Status: Acute Current Visit: Yes (4) Lactic acidosis Status: Acute Current Visit: Yes Hospitalist: Subjective Interval history: This lady presents to the hospital with sepsis syndrome. The patient also had polysubstance metabolic encephalopathy. The patient was seen to have metabolic acidosis which is now improving. The patient was prescribed Eliquis and arrived with coagulopathy. Bilirubin was elevated at admission and continues to rise, though slower in the last day. INR has improved down to 3.3 the patient is on ventilation and is alkalotic so I reduced her ventilation today. The patient continues on Mucomyst and vitamin K subcu to help with liver failure. Exam - Constitutional Vitals: Period Temp Pulse Resp BP Sys/Morse Pulse Ox Last 24 Hr 96.4 F-98.2 F 72-85 8-45 84-108/48-81 89-100 Exam: Constitutional System: No distress. No tremulousness. The patient is orally intubated, mechanically ventilated, and sedated. Head: Normocephalic, atraumatic. Ears, Nose and Throat System: No evidence of Otitis or Mastoiditis. No epistaxis or discharge Eyes System: Pupils equal, round, and reactive. Extraocular muscles intact. Neck: Supple, without adenopathy, No jugular venous distention. No thyromegaly , neck mass, or prior surgery apparent. Respiratory System: Chest clear to auscultation. Cardiovascular System: Heart with irregular rate and rhythm. No murmur. There is prominent right ventricular heave GI System: Abdomen soft, nontender. Normo active bowel sounds present. Results - Labs CBC & BMP: 11/23/16 04:00 11/23/16 04:00 Lab Results: I have reviewed the past 24 hour labs
[2016-11-23] MEDS: DOPamine 800 MG/250 ML PREMIX IV SCH (13:00)
[2016-11-23 13:22] LABS: ABG Base Excess 1.7 MMOL/L (-2.5-2.5); ABG HCO3 24.8 MMOL/L (20-26); ABG Oxygen Saturation 85.6 % (95-100); ABG PO2 53.4 MM HG (80-95); ABG TCO2 25.8 MMOL/L (23-27)
[2016-11-23 15:22] LABS: ABG Base Excess 2.8 MMOL/L (-2.5-2.5); ABG HCO3 26.7 MMOL/L (20-26); ABG Oxygen Saturation 90.2 % (95-100); ABG PCO2 33.5 MM HG (35-48); ABG PH 7.491 (7.35-7.45); ABG PO2 63.1 MM HG (80-95); ABG TCO2 22.1 MMOL/L (23-27)
[2016-11-23 16:15] LABS: ABG Base Excess 1.3 MMOL/L (-2.5-2.5); ABG HCO3 23.7 MMOL/L (20-26); ABG Oxygen Saturation 93.3 % (95-100); ABG PCO2 31.4 MM HG (35-48); ABG PH 7.496 (7.35-7.45); ABG TCO2 24.7 MMOL/L (23-27)
[2016-11-23] MEDS: NOREPINEPHRINE 16 MG in SODIUM CHLORIDE 0.9% 234 ML IV SCH (23:27)
[2016-11-24] MEDS: ACETYLCYSTEINE 20% 6,000 MG/30 ML VIAL PO SCH ×6 (01:34→21:48)
[2016-11-24] MEDS: MEROPENEM 500 MG in SODIUM CHLORIDE 0.9% 100 ML IV SCH ×2 (02:51→15:45)
[2016-11-24] MEDS: LORazepam 2 MG/1 ML VIAL IV PRN (02:52)
[2016-11-24 03:58] LABS: Basophils % 0.1 % (0.0-0.8); Eosinophils % 0.1 % (0.00-10.9); Hematocrit 38.4 VOL% (35.7-47.0); Hemoglobin 13.5 GM/DL (12.0-16.0); Immature Granulocytes % 1.5 %; Lymphocytes # 2.1 10*3/uL (1.4-4.0); Lymphocytes % 15.5 % (21.3-54.2); Mean Corpuscular HGB Conc 35.2 GM/DL (32-36); Mean Corpuscular Hemoglobin 30 PG (27-34); Mean Corpuscular Volume 84.4 FL (87-102); Mean Platelet Volume 12.8 FL (9.6-12.0); Monocytes # 0.6 10*3/uL (0.11-0.8); Monocytes % 4.8 % (1.7-12.7); NRBC # 0.14 10*3/uL; Neutrophils # 10.4 10*3/uL (1.4-7.4); Platelet Count 124 T/CUMM (130-400); Red Blood Count 4.55 MC/CUMM (3.8-5.5); Red Cell Distribution Width 19.5 % (9.3-17.3); White Blood Count 13.3 T/CUMM (4-12)
[2016-11-24 03:59] LABS: ABG Base Excess -6.5 MMOL/L (-2.5-2.5); ABG HCO3 19.2 MMOL/L (20-26); ABG PCO2 21.3 MM HG (35-48); ABG TCO2 13.7 MMOL/L (23-27)
[2016-11-24 04:23] LABS: Calcium 7.6 MG/DL (8.5-10.1); Magnesium 1.7 MG/DL (1.8-2.4); Osmolality,Calculated 284.8 MOS/KG (273-304); Potassium 4.2 MMOL/L (3.5-5.1)
[2016-11-24 04:52] LABS: Albumin 2.1 G/DL (3.4-5.0); Bilirubin,Direct 4.1 MG/DL (0.0-0.20); Bilirubin,Indirect 1.9 MG/DL (0.0-1.0); Total Protein 4.3 G/DL (6.4-8.3)
[2016-11-24] MEDS: SODIUM BICARB INJ 50 MEQ in DEXTROSE 5% 1,000 ML IV SCH ×4 (05:25→23:15)
--- NOTE | 2016-11-24 07:22 | XRay Report ---
XR chest 1V portable Indication: Ventilator Comparison: Chest x-ray dated November 23, 2016 Technique: Single frontal view of the chest. Findings: Endotracheal tube stable in positioning. Continued cardiomegaly. Continued atelectasis/consolidation of the left mid and lower lung with small left pleural effusion. Visualized osseous and surrounding soft tissue structures appear grossly unchanged. IMPRESSION: No significant interval change. PROCEDURE INTERPRETED AT [facility] DEPARTMENT OF RADIOLOGY Final Report Signed by: Dr Cortez Comer
--- NOTE | 2016-11-24 08:24 | Cardiology Progress Note ---
Assessment and Plan - Time spent with patient Time spent with patient: Greater than 30 minutes (1) Cardiomyopathy Status: Chronic Assessment and plan: SEE PLAN OF CARE LISTED BELOW Current Visit: Yes (2) Cardiorespiratory failure Status: Acute Assessment and plan: SEE PLAN OF CARE LISTED BELOW Current Visit: Yes (3) Coagulopathy Status: Acute Assessment and plan: SEE PLAN OF CARE LISTED BELOW Current Visit: Yes (4) GI bleed Status: Acute Assessment and plan: SEE PLAN OF CARE LISTED BELOW Current Visit: Yes (5) Metabolic acidosis Status: Acute Assessment and plan: SEE PLAN OF CARE LISTED BELOW Current Visit: Yes (6) Pacemaker Status: Chronic Assessment and plan: SEE PLAN OF CARE LISTED BELOW Current Visit: Yes (7) Polysubstance abuse Status: Acute Assessment and plan: SEE PLAN OF CARE LISTED BELOW Current Visit: Yes Cardiology - PN: Subj Interval history: Souleymane to complete Patient is currently on Levophed 30 mcg/min. Dobutamine 3 mcg/kg/min. Dopamine was stopped at some point during the night however reinitiating this morning at 5 mg/min. Jaundice. Frequent PVCs. Kidney function worse. ProBNP greater than 5000. Chest x-ray this morning is essentially unchanged. Continued atelectasis and consolidation of the left mid and lower lung with a small left pleural effusion. Not waking much. When sedation is held he has been "thrashing around". SOULEYMANE DANG MERCHANDISE PROCESSOR: DR. SHRAP SUMMARY: Ms. Hall, 56WF, has a long-standing history of cardiomyopathy, status post pacemaker implantation followed by Dr. Sharp in [place]. History of polysubstance abuse including cannabinoids, opiates and benzodiazepines. Patient was admitted to the ICU of [facility] with mental status changes and confusion. The evening of admission, patient coded but did not lose her heart rhythm though she did lose her pulse transiently. This responded to vasopressors. She has been housed in our ICU requiring Dobutamine and Levophed. She is currently also on IV sodium bicarbonate to treat her metabolic acidosis of unknown etiology. Liver function tests remain abnormal ( suspected to be related to hypotension). Cardiac enzyme panel is not consistent with acute coronary syndrome. Echocardiogram reveals EF 15% with global hypokinesis, moderate mitral regurgitation. PAP 51 mmHg. Eliquis has been held since November 21, 2016 due to possible GI bleed and coagulopathy (INR greater than 20). NOVEMBER 23, 2016: Patient is being treated for sepsis. Her metabolic acidosis is slowly improving. Continues to require mechanical ventilation due to cardiorespiratory failure. Still requiring vasopressors. Her prognosis is poor. She is hypokalemic. We will continue to follow her labs closely daily. I will ask that telemetry monitoring be recorded and scanned in in order to assess her rhythm. NOVEMBER 24, 2016: Increased FiO2 requirement noted overnight. She is unresponsive to verbal or tactile stimuli. She is currently requiring IV Levophed, Dopamine and Dobutamine. She is having intermittent runs of NSVT. This is not unexpected given the severity of her illness. Magnesium is 1.7 and we will replace, monitoring closely. Unfortunately, she is in shock liver failure and Amiodarone is not an option. Hypotension prevents use of acacia blocking agents. Prognosis is poor. She is now DNR. Will discuss with Dr. Lemus and await additional recommendations. ASSESSMENT/PLAN: 1. CARDIOPULMONARY ARREST - currently requiring mechanical ventilation and vasopressor support. Poor prognosis 2. POLYSUBSTANCE ABUSE - continue current plan of care 3. CARDIOMYOPATHY - EF 15%. Etiology unknown, duration unknown. 4. METABOLIC ACIDOSIS - slowly improving. 5. ACUTE RENAL FAILURE - stage IV. Unknown if this acute on chronic. 6. SUSPECTED SEPSIS - uncertain at this time. Continue current plan of care 7. COAGULOPATHY - little improvement. Holding Eliquis 8. S/P PACEMAKER - followed by Dr. Sharp in [place], [place] 9. NSVT - replacing magnesium. Not a candidate for acacia blocking agents ( hypotension) or Amiodorone (liver failure) 10. DNR - continue current plan of care Exam (Progress Note) - Constitutional Vitals: Period Temp Pulse Resp BP Sys/Morse Pulse Ox Last 24 Hr 97.5 F-98.6 F 72-107 8-45 84-149/48-87 89-100 Exam: General: [Appears ill. ] [Appears comfortable.] HEENT: [Normocephalic, atraumatic. Mucous membranes moist. No jaundice noted. Conjunctiva moist and clear, sclerae anicteric] Neck: No obvious JVD/HJR, no thyromegaly or lymphadenopathy noted. No carotid bruit appreciated Cardiac: [Regular rate and rhythm.] [No obvious murmur rub or gallop.] Lungs: [Rhonchi noted throughout. Intubated with symmetrical chest wall movements. Abdomen: Soft, bowel sounds normoactive. Nontender and nondistended. No abdominal bruit or thrill noted. No masses noted. Musculoskeletal: No fluid collection. Decreased range of motion is noted. Extremities: No clubbing, cyanosis noted. [Trace bilateral lower extremity edema noted.] Upper extremity pulses 2+. Lower extremity pulses 2+. Capillary refill less than 3 seconds. Skin: No unusual lesions or rashes. No skin breakdown appreciated. Neuro: Sedated, moving extremities when sedation with health. No essential tremor is appreciated. Result/EKG - Labs CBC & BMP: 11/24/16 03:45 11/24/16 03:45 Lab Results: I have reviewed the past 24 hour labs Labs: Laboratory Results - last 24 hr 11/22/16 11/23/16 11/23/16 10:25 13:01 15:15 WBC RBC Hgb Hct MCV MCH MCHC RDW Plt Count MPV Neut % (Auto) Lymph % (Auto) [place] % (Auto) Eos % (Auto) Baso % (Auto) Neut # (Auto) Lymph # (Auto) [place] # (Auto) Eos # (Auto) Baso # (Auto) Immature Gran % Nucleated RBC % Immature Gran # Nucleated RBCs # Peripheral Blood Smear Not Reportable [facility] Path Cons ABG pH 7.491 H ABG pCO2 33.5 L ABG pO2 63.1 L ABG HCO3 26.7 H ABG Total CO2 22.1 L ABG O2 Saturation 90.2 L ABG Base Excess 2.8 H Sodium Potassium Chloride Carbon Dioxide Anion Gap BUN Creatinine GFR Calculation BUN/Creatinine Ratio Glucose POC Glucose 139 H Calculated Osmolality Calcium Magnesium Total Bilirubin Direct Bilirubin Indirect Bilirubin AST ALT Alkaline Phosphatase Ammonia B-Natriuretic Peptide Total Protein Albumin 11/23/16 11/23/16 11/23/16 16:00 18:38 Unknown WBC RBC Hgb Hct MCV MCH MCHC RDW Plt Count MPV Neut % (Auto) Lymph % (Auto) [place] % (Auto) Eos % (Auto) Baso % (Auto) Neut # (Auto) Lymph # (Auto) [place] # (Auto) Eos # (Auto) Baso # (Auto) Immature Gran % Nucleated RBC % Immature Gran # Nucleated RBCs # Peripheral Blood Smear [facility] Path Cons ABG pH 7.496 H 7.480 H ABG pCO2 31.4 L 34.0 L ABG pO2 69.0 L 53.4 L ABG HCO3 23.7 24.8 ABG Total CO2 24.7 25.8 ABG O2 Saturation 93.3 L 85.6 L ABG Base Excess 1.3 1.7 Sodium Potassium Chloride Carbon Dioxide Anion Gap BUN Creatinine GFR Calculation BUN/Creatinine Ratio Glucose POC Glucose 150 H Calculated Osmolality Calcium Magnesium Total Bilirubin Direct Bilirubin Indirect Bilirubin AST ALT Alkaline Phosphatase Ammonia B-Natriuretic Peptide Total Protein Albumin 11/24/16 11/24/16 11/24/16 00:03 03:45 03:45 WBC RBC Hgb Hct MCV MCH MCHC RDW Plt Count MPV Neut % (Auto) Lymph % (Auto) [place] % (Auto) Eos % (Auto) Baso % (Auto) Neut # (Auto) Lymph # (Auto) [place] # (Auto) Eos # (Auto) Baso # (Auto) Immature Gran % Nucleated RBC % Immature Gran # Nucleated RBCs # Peripheral Blood Smear Peripher Smr Path Cons ABG pH 7.470 H ABG pCO2 21.3 L ABG pO2 316.0 H ABG HCO3 19.2 L ABG Total CO2 13.7 L ABG O2 Saturation 100.0 ABG Base Excess -6.5 L Sodium Potassium Chloride Carbon Dioxide Anion Gap BUN Creatinine GFR Calculation BUN/Creatinine Ratio Glucose POC Glucose 159 H Calculated Osmolality Calcium Magnesium Total Bilirubin Direct Bilirubin Indirect Bilirubin AST ALT Alkaline Phosphatase Ammonia B-Natriuretic Peptide > 5000 H Total Protein Albumin 11/24/16 11/24/16 11/24/16 03:45 03:45 03:45 WBC 13.3 H RBC 4.55 Hgb 13.5 Hct 38.4 MCV 84.4 L MCH 30 MCHC 35.2 RDW 19.5 H Plt Count 124 L MPV 12.8 H Neut % (Auto) 78.0 H Lymph % (Auto) 15.5 L [place] % (Auto) 4.8 Eos % (Auto) 0.1 Baso % (Auto) 0.1 Neut # (Auto) 10.4 H Lymph # (Auto) 2.1 [place] # (Auto) 0.6 Eos # (Auto) 0.0 Baso # (Auto) 0.0 Immature Gran % 1.5 Nucleated RBC % 1.1 Immature Gran # 0.20 Nucleated RBCs # 0.14 Peripheral Blood Smear Peripher Smr Path Cons ABG pH ABG pCO2 ABG pO2 ABG HCO3 ABG Total CO2 ABG O2 Saturation ABG Base Excess Sodium Potassium Chloride Carbon Dioxide Anion Gap BUN Creatinine GFR Calculation BUN/Creatinine Ratio Glucose POC Glucose Calculated Osmolality Calcium Magnesium Total Bilirubin 6.00 H Direct Bilirubin 4.10 H Indirect Bilirubin 1.9 H AST 1204 H ALT 925 H Alkaline Phosphatase 99 Ammonia 32 B-Natriuretic Peptide Total Protein 4.3 L Albumin 2.1 L 11/24/16 11/24/16 03:45 05:34 WBC RBC Hgb Hct MCV MCH MCHC RDW Plt Count MPV Neut % (Auto) Lymph % (Auto) [place] % (Auto) Eos % (Auto) Baso % (Auto) Neut # (Auto) Lymph # (Auto) [place] # (Auto) Eos # (Auto) Baso # (Auto) Immature Gran % Nucleated RBC % Immature Gran # Nucleated RBCs # Peripheral Blood Smear Peripher Smr Path Cons ABG pH ABG pCO2 ABG pO2 ABG HCO3 ABG Total CO2 ABG O2 Saturation ABG Base Excess Sodium 137 Potassium 4.2 Chloride 97 L Carbon Dioxide 19 L Anion Gap 25.2 H BUN 40 H Creatinine 3.20 H GFR Calculation 16 BUN/Creatinine Ratio 12.00 Glucose 141 H POC Glucose 158 H Calculated Osmolality 284.8 Calcium 7.6 L Magnesium 1.7 L Total Bilirubin Direct Bilirubin Indirect Bilirubin AST ALT Alkaline Phosphatase Ammonia B-Natriuretic Peptide Total Protein Albumin - Diagnostic Findings Procedure: Chest x-ray: report reviewed by me - EKG EKG results: interpreted by me EKG shows: sinus rhythm (PVCs, NSVT), atrial fibrillation
--- NOTE | 2016-11-24 08:34 | Nephrology Progress Note ---
Nephrology - PN: Subj Interval history: 24h events noted. Hypotense, increased FiO2 requirement. UOP dropped off. Creatinine up to 3.2. Unresponsive to verbal or tactile stimuli. LFTs decreasing. lactate had been decreasing. No identified infectious source to date. Exam (PN)-Nephrology - Vital Signs Vital signs: Period Temp Pulse Resp BP Sys/Morse Pulse Ox Last 24 Hr 97.5 F-98.6 F 72-107 8-45 84-149/48-87 89-100 - General Appearance General appearance: chronically ill, sedated on ventilator, intubated EENT: ATNC, PERRL, mucous membranes dry Neck: no JVD, no thyromegaly Respiratory: no kyphosis, clear Cardiology: no murmurs, no rub, edema Gastrointestinal: normoactive bowel sounds, no tenderness Integumentary: no rash, cool/clammy (cool and dry) Neurologic: obtunded Musculoskeletal: no deformities, no erythema, cyanosis - Lab 11/24/16 03:45 11/24/16 03:45 Most recent lab results ABG pH 7.470 (7.35-7.45) H 11/24/16 03:45 ABG pCO2 21.3 MM HG (35-48) L 11/24/16 03:45 ABG pO2 316.0 MM HG (80-95) H 11/24/16 03:45 ABG HCO3 19.2 MMOL/L (20-26) L 11/24/16 03:45 ABG O2 Saturation 100.0 % (95-100) 11/24/16 03:45 Calcium 7.6 MG/DL (8.5-10.1) L 11/24/16 03:45 Phosphorus 2.9 MG/DL (2.5-4.9) 11/22/16 04:59 Magnesium 1.7 MG/DL (1.8-2.4) L 11/24/16 03:45 Assessment and Plan (1) NADIA (acute kidney injury) Problem details: No acute indication for renal replacement therapy. Status: Acute Assessment and plan: decreased IVFs rate to (25cc/hr). Start albumin 25gms IVPB q8h x 6 doses. Current Visit: Yes (2) Metabolic acidosis Status: Acute Current Visit: Yes (3) Altered mental status Problem details: Sepsis, polysubstance abuse, hepatic encephalopathy all in the differential. Status: Acute Assessment and plan: No identified infection to date. Current Visit: Yes (4) Elevated LFTs Problem details: Acute and chronic appearing liver abnormalities, poor synthetic function, low platelets. Appears to have DIC. Status: Acute Assessment and plan: Send peripheral smear to evaluate for schistocytosis, TTP, pathologist review does not specifically mention schistocytes. Continue misoprostol to help reverse intrinsic renal vasoconstriction seen with liver failure. Current Visit: Yes (5) Cardiorespiratory failure Status: Acute Current Visit: Yes
[2016-11-24] MEDS: PANTOPRAZOLE 40 MG VIAL IV SCH ×2 (08:42→21:57)
[2016-11-24] MEDS: ASCORBIC ACID 500 MG TABLET PO SCH ×2 (08:45→21:48)
[2016-11-24] MEDS: VENLAFAXINE 75 MG TABLET PO SCH (08:45)
[2016-11-24] MEDS: miSOPROStol 200 MCG TABLET PER TUBE SCH ×4 (08:46→21:47)
[2016-11-24] MEDS: PHYTONADIONE 10 MG/1 ML AMP SUBCUT SCH ×2 (08:46→21:48)
[2016-11-24] MEDS: ALBUMIN 25% 25 GM in PREMIX 1 EACH IV SCH ×2 (09:16→17:30)
--- NOTE | 2016-11-24 10:06 | Hospitalist Progress Note ---
Assessment and Plan (1) Polysubstance abuse Status: Acute Current Visit: Yes (2) Elevated LFTs Problem details: Acute and chronic appearing liver abnormalities, poor synthetic function, low platelets. Appears to have DIC. Status: Acute Assessment and plan: C/W shock liver due to profound hypotension. AST/ALT improved. T. Bili elevated. Continue supportive care. Current Visit: Yes (3) NADIA (acute kidney injury) Problem details: No acute indication for renal replacement therapy. Status: Acute Assessment and plan: Renal function worsening with associated decrease in UOP. Nephrology following. Initiated albumin to attempt improved profusion. No indication for HD at this time per renal. Current Visit: Yes (4) Metabolic acidosis Status: Acute Assessment and plan: Unclear etiology, however considering sepsis and polysubstance abuse within the differential. Lactic acid elevated but improved from admission values. Will continue supportive care with pressors to increase organ profusion. Cont. Sodium Bicarb. as well as Abx. Current Visit: Yes (5) Cardiomyopathy Status: Chronic Assessment and plan: Severely depressed EF at 15%. BNP >5000. On Dobutamine. Cardiology following. Current Visit: Yes (6) Coagulopathy Status: Acute Assessment and plan: 2/2 to shock liver in combination with possible Eliquis toxicity noted on admission. Currently receiving Vit K. Coags improved but remain elevated. Current Visit: Yes (7) Lactic acidosis Status: Acute Assessment and plan: 2/2 profound hypotension with end organ damage. Etiology of hypotension may be multifactorial to include medication induced and or sepsis or worsening CHF. CXR notes LML and LLL atelectasis/ consolidation. WBC count elevated but improved from admission. Continue pressors and abx to wean as tolerated. Current Visit: Yes Hospitalist: Subjective Interval history: Patient was admitted on the 3rd with acute metabolic acidosis with associated encephalopathy of unclear etiology. Also with multisystem organ failure likely as a result of profound hypotension. She has a diagnosis of CHF with a reduced EF at 15% (systolic dysfunction). BNP >5000. Additionally, she currently has liver function c/w shock liver (AST/ALT decreasing but T. Bili elevated) and worsening renal failure (not requiring HD but with decreasing UOP). An underlying etiology has not been isolated. Sepsis, polysubstance and exacerbation of CHF all in the differential. Exam - Constitutional Vitals: Period Temp Pulse Resp BP Sys/Morse Pulse Ox Last 24 Hr 97.5 F-98.6 F 77-107 10-45 84-149/48-87 91-100 General appearance: other (Intubated and sedated. Only slightly arousable with sternal rub.) - Head Head exam: Present: normal inspection, normocephalic, atraumatic - Respiratory Respiratory exam: Present: decreased breath sounds, rhonchi. Absent: rales, wheezes - Cardiovascular Cardiovascular exam: Present: regular rate and rhythm - GI/Abdominal GI/Abdominal exam: Present: hypoactive bowel sounds, soft. Absent: distended, tenderness - Extremities Exam Extremities exam: Present: other (No edema. Cool ext.) - Neurological Exam Neurological exam: Present: other (Sedated) Results - Labs CBC & BMP: 11/24/16 03:45 11/24/16 03:45
--- NOTE | 2016-11-24 11:07 | Pulmonology Progress Note ---
Pulmonary - PN: Subj Interval history: This is a 56-year-old white female whom I saw in pulmonary consultation on 2016. I was asked to treat her pulmonary status and manage mechanical ventilation. My impressions were. 1. Known heart disease with a past history of congestive heart failure and with acute congestive heart failure. Echocardiogram done 11/20/2016 showed left ventricular ejection fraction of 15% with global hypokinesis, moderate mitral regurgitation, mild to moderate tricuspid regurgitation. Aortic valve was normal. Pulmonary artery pressure was estimated to be 51 mmHg. I suspect that the pulmonary hypertension is related to the patient's mitral regurgitation. 2. History of cardiac arrhythmia requiring cardiac pacemaker 3. Acute cardiac arrest 4. Tobacco abuse 5. Toxicology. Positive opiates and cannabinoids. 6. Acute on chronic renal failure. 7. Severe hypotension with metabolic acidosis requiring pressor agents. 8. Abnormal liver function tests. 9. See above 10. Following my consultation was found that the patient was in mild liver failure. She had an INR greater than 20 with low fiber prevention. It is thought that we are dealing with disseminated intravascular coagulation. 11/22/2016. Today's chest x-ray shows cardiomegaly. There are increased interstitial markings which are compatible with very mild pulmonary edema. Endotracheal tube is in good position. INR is dropped to 8.0. ABGs on mechanical ventilation showed pH is 7.549. PCO2 is 26.4. PO2 is 198. Bicarb is 22.5. Potassium is low at 3.4. Sodium is 139. Creatinine is increased to 2.60 with a BUN of 38. AST is greater than 2000. ALT is 1538. Alkaline [place] is normal at 86. Total bilirubin is 4.50 with a direct bilirubin of 3.00 and indirect bilirubin 1.5. C-reactive protein is elevated at 3.36. Natruretic peptide is elevated at 3777. Protein and albumin are low at 4.3 and 2.4 respectively. Sedimentation rate is 1 which is what I would expect if fibrinogen is being consumed with a coagulopathy. There are no positive cultures. Patient remains on 2 pressor agents. She is also on antibiotics. She is not on steroids. Patient has been seen in cardiology consultation by Dr. Jose Aiken, renal consultation by Dr. Se Pulliam. 11/23/2016. Chest x-ray shows cardiomegaly. Left diaphragm is not visible. There are bilateral increased interstitial markings compatible with congestive heart failure. Endotracheal tube is near the fede. ABGs are noted and discussed with Dr. Se Pulliam. Adjustments have been made and mechanical ventilation and follow-up ABGs are pending. Potassium is low at 3.1 is being replaced. Creatinine is 2.90 with a BUN of 36. This patient continues to have an elevated lactic acid level at 3.5 she is on 2 pressor agents. Her calcium is low at 7.3 and albumin is low at 2.1 total proteins of 4.0. Natruretic peptide is gradually decreasing but remains elevated 1998. Total bilirubin is 4.90. Direct bilirubin is 3.20. AST and ALT are 2565 and 1152 respectively. Alkaline [place] is normal. Ammonia level is elevated at 53. White blood cell count is 14,300 with 85 segs. H&H is 12.2/35.2. Platelets have increased to 120,000 and INR is dropped to 3.3. This patient was tried on a T-tube for a few minutes but she could not tolerate it. We will continue weaning protocol with CPAP. Patient is has multi-organ disease and I suspect she will be very slow to wean from mechanical ventilation. 11/24/2016. Chest x-ray. Massive cardiomegaly. There are increased interstitial markings and alveolar filling bilaterally. This is improved a good bit with PEEP and pressure support. This patient has significant heart disease with a decreased ejection fraction and if it were not for PEEP and pressure support her congestive heart failure findings on chest x-ray would be much more prominent. With the addition of pressure support ABGs have improved significantly. On FiO2 100% pH is 7.47, P CO2 is 21 and PO2 is 316 with a bicarb of 19.2. Today I have decreased the FiO2. Creatinine is 3.20. BUN is 40. Electrolytes are normal. Ammonia level has dropped to 32. Total bilirubin is 6.00 with a direct of 4.1. Transaminases remain significantly elevated. White count is 13,300 with 78 segs. H&H 13.5/38.4. There are no positive cultures this patient has respiratory failure, congestive heart failure , severe heart disease, acute kidney failure. She also has acute liver failure and on the right lying cirrhosis of the liver. There is a very long history of alcohol abuse and apparently of drug abuse. Labs been reviewed. Medicines been reviewed. Doppler venograms of the lower extremities done 11/21/2016 showed no evidence of deep venous thrombophlebitis Ultrasound of the abdomen done 11/20/2016. Gallbladder sludge and/or micro- stones. No evidence of acute cholecystitis. Minimal left perinephric fluid of uncertain significance. No hydronephrosis. Physical exam. Vital signs. See below. Blood pressure requires 2 pressor agents. Chest. Rales. Heart. Far lateral PMI Abdomen. Only rare bowel sounds. Lower extremities. Skin changes of chronic venous stasis. Psychiatric. Impossible to discern. Neurological. Impossible to discern. Neck. No meningismus. Lymphatics. No submandibular cervical supraclavicular adenopathy. Plan. 11/21/2016. #1 repeat ABGs. 2. We will make ventilator adjustments. Patient will be put on the weaning protocol and physical therapy protocol. 3. Proton pump inhibitors 4. Follow-up chest x-ray and ABGs 5. Ammonia level 6. Thyroid function tests. 6. Doppler venograms of the lower extremities 7. Echocardiogram 8. Cardiology consultation 11/22/2016. 1. Weaning protocol. 2. Physical therapy protocol. 3. Daily chest x-ray and ABGs. 4. Daily lab. 11/23/2016. 1. See today's note above 11/24/2016. 1. See today's note above. 2. Continue mechanical ventilation. Cardiac status will have to improve a good bit before we can do a whole lot in the way of weaning. Exam (Progress Note) - Constitutional Vitals: Period Temp Pulse Resp BP Sys/Morse Pulse Ox Last 24 Hr 97.5 F-98.6 F 89-107 11-30 84-149/48-87 91-100 Results - Labs CBC & BMP: 11/24/16 03:45 11/24/16 03:45
[2016-11-24] MEDS ORDERED: MAGNESIUM SULF RIDER 2 GM in PREMIX 1 EACH IV ONE ×2 (11:09→11:33)
[2016-11-24] MEDS ORDERED: MAGNESIUM OXIDE 400 MG TABLET PO ONE (11:10)
[2016-11-24] MEDS ORDERED: MAGNESIUM SULF RIDER 50 ML IV ONE (11:35)
--- NOTE | 2016-11-24 11:45 | Gastrointestinal Progress Note ---
<Med Sarmientoher Guerrero - Last Filed: 11/24/16 11:43> Assessment and Plan (1) GI bleed Status: Acute Assessment and plan: 11/24-no changes at present time. Continues on pressor support. Runs of V. tach noted at present time. DNR. Plan an addendum to follow by Dr. Gaona. 11/23-No further hemetemsis with stable H/H. Continues on Dobutamine and Levophed. INR improved at 3.3. Continue to monitor for further bleeding. Plan and addendum to follow by Dr Gaona. Current Visit: Yes Gastroenterology - PN: Subj Interval history: CC: GI bleed Patient is seen, sedated, on the vent. She continues on pressure support as well as having runs of V. tach at this time. Family has made her a DNR as well. LFTs are trending down however bilirubin is elevated. BNP also noted to be elevated greater than 5000. Abdomen soft, nontender. No overt bleeding at this time. Hemoglobin stable at 13.5. ROS: No acute distress at present time. Exam (Progress Note) - Constitutional Vitals: Period Temp Pulse Resp BP Sys/Morse Pulse Ox Last 24 Hr 97.5 F-98.6 F 89-107 11-30 84-149/51-87 91-100 General appearance: normal weight, no acute distress - Head Head exam: Present: normal inspection, normocephalic - Eye Eye exam: Present: other (Lids and conjunctive are unremarkable). Absent: scleral icterus - ENT ENT exam: Present: normal exam, normal oropharynx - Neck Neck exam: Present: normal inspection - Respiratory Respiratory exam: Present: clear to auscultation bilaterally. Absent: rales, rhonchi, wheezes - Cardiovascular Cardiovascular exam: Present: regular rate and rhythm. Absent: diastolic murmur , JVD, systolic murmur - GI/Abdominal GI/Abdominal exam: Present: normal bowel sounds, soft. Absent: ascites, distended, mass, organomegaly, tenderness - Extremities Exam Extremities exam: Present: normal inspection - Back Exam Back exam: Present: normal inspection - Neurological Exam Neurological exam: Present: other - Psychiatric Psychiatric exam: Present: normal affect, normal mood - Skin Skin exam: Present: normal color, warm, dry Results - Labs CBC & BMP: 11/24/16 03:45 06/06/17 03:45 Lab Results: I have reviewed the past 24 hour labs <Adin Gaona - Last Filed: 11/24/16 18:55> Exam (Progress Note) - Constitutional Vitals: Period Temp Pulse Resp BP Sys/Morse Pulse Ox Last 24 Hr 97.5 F-99.3 F 75-107 11-94 84-107/54-78 87-100 Results - Labs CBC & BMP: 11/24/16 03:45 11/24/16 03:45
[2016-11-24 12:12] LABS: INR 1.5; PT Patient Result 16.6 SECS
[2016-11-24 13:56] LABS: Mitochondrial Antibody (M2) <0.1 U
[2016-11-24] MEDS: NOREPINEPHRINE 16 MG in SODIUM CHLORIDE 0.9% 234 ML IV SCH ×3 (14:35→23:06)
[2016-11-24] MEDS: DOPamine 800 MG/250 ML PREMIX IV SCH (14:49)
[2016-11-24] MEDS: DOBUTamine 500 MG/250 ML PREMIX IV SCH (17:18)
[2016-11-24] MEDS: PROPOFOL 1,000 MG/100 ML BOTTLE IV SCH (18:00)
[2016-11-25] MEDS: ALBUMIN 25% 25 GM in PREMIX 1 EACH IV SCH ×3 (01:30→19:08)
[2016-11-25] MEDS: ACETYLCYSTEINE 20% 6,000 MG/30 ML VIAL PO SCH ×3 (01:30→10:11)
[2016-11-25] MEDS: MEROPENEM 500 MG in SODIUM CHLORIDE 0.9% 100 ML IV SCH ×2 (02:55→15:00)
[2016-11-25 04:13] LABS: Basophils % 0.2 % (0.0-0.8); Eosinophils % 0.1 % (0.00-10.9); Hematocrit 38.3 VOL% (35.7-47.0); Hemoglobin 13.3 GM/DL (12.0-16.0); Immature Granulocytes % 1.1 %; Immature Granulocytes Absolute 0.14 #; Lymphocytes # 1.9 10*3/uL (1.4-4.0); Lymphocytes % 15.5 % (21.3-54.2); Mean Corpuscular HGB Conc 34.7 GM/DL (32-36); Mean Corpuscular Hemoglobin 29 PG (27-34); Mean Corpuscular Volume 84.4 FL (87-102); Mean Platelet Volume 12.2 FL (9.6-12.0); Monocytes # 0.7 10*3/uL (0.11-0.8); Monocytes % 5.5 % (1.7-12.7); NRBC # 0.25 10*3/uL; Neutrophils # 9.5 10*3/uL (1.4-7.4); Neutrophils % 77.6 % (38.7-73.9); Platelet Count 106 T/CUMM (130-400); Red Blood Count 4.54 MC/CUMM (3.8-5.5); Red Cell Distribution Width 19.7 % (9.3-17.3); White Blood Count 12.2 T/CUMM (4-12)
[2016-11-25 04:17] LABS: ABG Base Excess -11.1 MMOL/L (-2.5-2.5); ABG PH 7.391 (7.35-7.45); ABG TCO2 11.5 MMOL/L (23-27)
[2016-11-25 04:18] LABS: ABG Oxygen Saturation 99.2 % (95-100)
[2016-11-25 04:20] LABS: ABG PCO2 18.5 MM HG (35-48)
[2016-11-25 04:24] LABS: INR 1.6
[2016-11-25 04:47] LABS: Calcium 7.9 MG/DL (8.5-10.1); Magnesium 2.2 MG/DL (1.8-2.4); Osmolality,Calculated 287.7 MOS/KG (273-304); Potassium 3.7 MMOL/L (3.5-5.1)
[2016-11-25] MEDS: DOBUTamine 500 MG/250 ML PREMIX IV SCH ×4 (05:21→22:26)
[2016-11-25] MEDS: NOREPINEPHRINE 16 MG in SODIUM CHLORIDE 0.9% 234 ML IV SCH ×3 (05:22→19:40)
--- NOTE | 2016-11-25 07:28 | XRay Report ---
XR chest 1V portable Indication: Ventilator Comparison: Chest x-ray dated November 24, 2016 Technique: Single frontal view of the chest. Findings: Endotracheal tube approximately 1.7 cm above the fede. Continued cardiomegaly. Mildly progressed bilateral lower lung atelectasis/consolidation and probable small bilateral pleural fluid. Visualized osseous and surrounding soft tissue structures appear grossly unchanged. IMPRESSION: As above. PROCEDURE INTERPRETED AT [facility] DEPARTMENT OF RADIOLOGY Final Report Signed by: Dr Cortez Comer
--- NOTE | 2016-11-25 08:17 | Nephrology Progress Note ---
Nephrology - PN: Subj Interval history: No acute overnight events. Creatininie up to 3.4. Worsesning metabolic acidosis. Multiorgan failure, now DNR. Exam (PN)-Nephrology - Vital Signs Vital signs: Period Temp Pulse Resp BP Sys/Morse Pulse Ox Last 24 Hr 97.5 F-99.3 F 75-106 12-94 85-115/54-73 87-100 - General Appearance General appearance: chronically ill, sedated on ventilator, intubated EENT: ATNC, PERRL, mucous membranes dry, hearing intact, vision intact Neck: JVD, no thyromegaly Respiratory: kyphosis, rales Cardiology: no murmurs, no rub Gastrointestinal: normoactive bowel sounds, no tenderness Integumentary: no rash, warm and dry Neurologic: no focal deficit, no asterixis, obtunded Musculoskeletal: no deformities, no erythema - Lab 11/25/16 04:00 11/25/16 04:00 Most recent lab results ABG pH 7.391 (7.35-7.45) 11/25/16 04:00 ABG pCO2 18.5 MM HG (35-48) L* 11/25/16 04:00 ABG pO2 173.0 MM HG (80-95) H 11/25/16 04:00 ABG HCO3 11.0 MMOL/L (20-26) L 11/25/16 04:00 ABG O2 Saturation 99.2 % (95-100) 11/25/16 04:00 Calcium 7.9 MG/DL (8.5-10.1) L 11/25/16 04:00 Phosphorus 2.9 MG/DL (2.5-4.9) 11/22/16 04:59 Magnesium 2.2 MG/DL (1.8-2.4) 11/25/16 04:00 Assessment and Plan (1) NADIA (acute kidney injury) Problem details: No acute indication for renal replacement therapy. Status: Acute Assessment and plan: Not a chronic dialysis candidate due to poor predicted one year survival and comorbidities. Current Visit: Yes (2) Metabolic acidosis Status: Acute Assessment and plan: Check lacatate, increase bicarb containing IVFs. Increase sedation to help reverse resp alkalosis. Current Visit: Yes (3) Altered mental status Problem details: Sepsis, polysubstance abuse, hepatic encephalopathy all in the differential. Status: Acute Assessment and plan: No identified infection to date. Current Visit: Yes (4) Elevated LFTs Problem details: Acute and chronic appearing liver abnormalities, poor synthetic function, low platelets. Appears to have DIC. Status: Acute Assessment and plan: Send peripheral smear to evaluate for schistocytosis, TTP, pathologist review does not specifically mention schistocytes. Continue misoprostol to help reverse intrinsic renal vasoconstriction seen with liver failure. Current Visit: Yes (5) Cardiorespiratory failure Status: Acute Current Visit: Yes
--- NOTE | 2016-11-25 09:32 | Cardiology Progress Note ---
Assessment and Plan - Time spent with patient Time spent with patient: Greater than 30 minutes (1) Cardiomyopathy Status: Chronic Assessment and plan: SEE PLAN OF CARE LISTED BELOW Current Visit: Yes (2) Cardiorespiratory failure Status: Acute Assessment and plan: SEE PLAN OF CARE LISTED BELOW Current Visit: Yes (3) Coagulopathy Status: Acute Assessment and plan: SEE PLAN OF CARE LISTED BELOW Current Visit: Yes (4) GI bleed Status: Acute Assessment and plan: SEE PLAN OF CARE LISTED BELOW Current Visit: Yes (5) Metabolic acidosis Status: Acute Assessment and plan: SEE PLAN OF CARE LISTED BELOW Current Visit: Yes (6) Pacemaker Status: Chronic Assessment and plan: SEE PLAN OF CARE LISTED BELOW Current Visit: Yes (7) Polysubstance abuse Status: Acute Assessment and plan: SEE PLAN OF CARE LISTED BELOW Current Visit: Yes Cardiology - PN: Subj Interval history: 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 SHARP SUMMARY: Ms. Hall, 56WF, has a long-standing history of cardiomyopathy, status post pacemaker implantation followed by Dr. Sharp in [place]. History of polysubstance abuse including cannabinoids, opiates and benzodiazepines. Patient was admitted to the ICU of [facility] with mental status changes and confusion. The evening of admission, patient coded but did not lose her heart rhythm though she did lose her pulse transiently. This responded to vasopressors. She has been housed in our ICU requiring Dobutamine and Levophed. She is currently also on IV sodium bicarbonate to treat her metabolic acidosis of unknown etiology. Liver function tests remain abnormal ( suspected to be related to hypotension). Cardiac enzyme panel is not consistent with acute coronary syndrome. Echocardiogram reveals EF 15% with global hypokinesis, moderate mitral regurgitation. PAP 51 mmHg. Eliquis has been held since November 21, 2016 due to possible GI bleed and coagulopathy (INR greater than 20). NOVEMBER 23, 2016: Patient is being treated for sepsis. Her metabolic acidosis is slowly improving. Continues to require mechanical ventilation due to cardiorespiratory failure. Still requiring vasopressors. Her prognosis is poor. She is hypokalemic. We will continue to follow her labs closely daily. I will ask that telemetry monitoring be recorded and scanned in in order to assess her rhythm. NOVEMBER 24, 2016: Increased FiO2 requirement noted overnight. She is unresponsive to verbal or tactile stimuli. She is currently requiring IV Levophed, Dopamine and Dobutamine. She is having intermittent runs of NSVT. This is not unexpected given the severity of her illness. Magnesium is 1.7 and we will replace, monitoring closely. Unfortunately, she is in shock liver failure and Amiodarone is not an option. Hypotension prevents use of acacia blocking agents. Prognosis is poor. She is now DNR. Will discuss with Dr. Lemus and await additional recommendations. NOVEMBER 25, 2016: Overnight, patient is off Dopamine. Frequency of NSVT seems to have improved. Continues to require Levophed and Dobutamine. She is now a DNR with multiorgan failure. Creatinine continues to worsen. Continue aggressive care. Little to add from a cardiac standpoint. ASSESSMENT/PLAN: 1. CARDIOPULMONARY ARREST - currently requiring mechanical ventilation and vasopressor support. Poor prognosis 2. POLYSUBSTANCE ABUSE - continue current plan of care 3. CARDIOMYOPATHY - EF 15%. Etiology unknown, duration unknown. 4. METABOLIC ACIDOSIS - continue current plan of care. 5. ACUTE RENAL FAILURE - stage IV. Unknown if this acute on chronic. 6. SUSPECTED SEPSIS - uncertain at this time. Continue current plan of care 7. COAGULOPATHY - little improvement. Holding Eliquis 8. S/P PACEMAKER - followed by Dr. Sharp in [place], [place] 9. NSVT - replacing magnesium. Not a candidate for acacia blocking agents ( hypotension) or Amiodorone (liver failure) 10. DNR - continue current plan of care Exam (Progress Note) - Constitutional Vitals: Period Temp Pulse Resp BP Sys/Morse Pulse Ox Last 24 Hr 97.5 F-99.3 F 75-106 12-94 85-115/54-73 87-100 Exam: General: [Appears ill. ] [Appears comfortable.] HEENT: [Normocephalic, atraumatic. Mucous membranes moist. No jaundice noted. Conjunctiva moist and clear, sclerae anicteric] Neck: No obvious JVD/HJR, no thyromegaly or lymphadenopathy noted. No carotid bruit appreciated Cardiac: [Regular rate and rhythm.] [No obvious murmur rub or gallop.] Lungs: [Rhonchi noted throughout. Intubated with symmetrical chest wall movements. Abdomen: Soft, bowel sounds normoactive. Nontender and nondistended. No abdominal bruit or thrill noted. No masses noted. Musculoskeletal: No fluid collection. Decreased range of motion is noted. Extremities: No clubbing, cyanosis noted. [Trace bilateral lower extremity edema noted.] Upper extremity pulses 2+. Lower extremity pulses 2+. Capillary refill less than 3 seconds. Skin: No unusual lesions or rashes. No skin breakdown appreciated. Neuro: Sedated, moving extremities when sedation with health. No essential tremor is appreciated. Result/EKG - Labs CBC & BMP: 11/25/16 04:00 11/25/16 04:00 Lab Results: I have reviewed the past 24 hour labs Labs: Laboratory Results - last 24 hr 11/21/16 11/24/16 11/24/16 16:48 12:01 12:11 WBC RBC Hgb Hct MCV MCH MCHC RDW Plt Count MPV Neut % (Auto) Lymph % (Auto) [place] % (Auto) Eos % (Auto) Baso % (Auto) Neut # (Auto) Lymph # (Auto) [place] # (Auto) Eos # (Auto) Baso # (Auto) Immature Gran % Nucleated RBC % Immature Gran # Nucleated RBCs # INR 1.5 PT Patient/Control Mix 16.6 D ABG pH ABG pCO2 ABG pO2 ABG HCO3 ABG Total CO2 ABG O2 Saturation ABG Base Excess Sodium Potassium Chloride Carbon Dioxide Anion Gap BUN Creatinine GFR Calculation BUN/Creatinine Ratio Glucose POC Glucose 152 H Calculated Osmolality Lactic Acid Calcium Magnesium Ammonia B-Natriuretic Peptide Anti-Mitochondrial Ab <0.1 11/24/16 11/24/16 11/25/16 18:12 23:27 04:00 WBC RBC Hgb Hct MCV MCH MCHC RDW Plt Count MPV Neut % (Auto) Lymph % (Auto) [place] % (Auto) Eos % (Auto) Baso % (Auto) Neut # (Auto) Lymph # (Auto) [place] # (Auto) Eos # (Auto) Baso # (Auto) Immature Gran % Nucleated RBC % Immature Gran # Nucleated RBCs # INR PT Patient/Control Mix ABG pH ABG pCO2 ABG pO2 ABG HCO3 ABG Total CO2 ABG O2 Saturation ABG Base Excess Sodium Potassium Chloride Carbon Dioxide Anion Gap BUN Creatinine GFR Calculation BUN/Creatinine Ratio Glucose POC Glucose 124 H 108 H Calculated Osmolality Lactic Acid Calcium Magnesium Ammonia B-Natriuretic Peptide > 5000 H Anti-Mitochondrial Ab 11/25/16 11/25/16 11/25/16 04:00 04:00 04:00 WBC 12.2 H RBC 4.54 Hgb 13.3 Hct 38.3 MCV 84.4 L MCH 29 MCHC 34.7 RDW 19.7 H Plt Count 106 L MPV 12.2 H Neut % (Auto) 77.6 H Lymph % (Auto) 15.5 L [place] % (Auto) 5.5 Eos % (Auto) 0.1 Baso % (Auto) 0.2 Neut # (Auto) 9.5 H Lymph # (Auto) 1.9 [place] # (Auto) 0.7 Eos # (Auto) 0.0 Baso # (Auto) 0.0 Immature Gran % 1.1 Nucleated RBC % 2.0 Immature Gran # 0.14 Nucleated RBCs # 0.25 INR PT Patient/Control Mix ABG pH 7.391 ABG pCO2 18.5 L* ABG pO2 173.0 H ABG HCO3 11.0 L ABG Total CO2 11.5 L ABG O2 Saturation 99.2 ABG Base Excess -11.1 L Sodium Potassium Chloride Carbon Dioxide Anion Gap BUN Creatinine GFR Calculation BUN/Creatinine Ratio Glucose POC Glucose Calculated Osmolality Lactic Acid Calcium Magnesium Ammonia 42 H B-Natriuretic Peptide Anti-Mitochondrial Ab 11/25/16 11/25/16 11/25/16 04:00 04:00 05:30 WBC RBC Hgb Hct MCV MCH MCHC RDW Plt Count MPV Neut % (Auto) Lymph % (Auto) [place] % (Auto) Eos % (Auto) Baso % (Auto) Neut # (Auto) Lymph # (Auto) [place] # (Auto) Eos # (Auto) Baso # (Auto) Immature Gran % Nucleated RBC % Immature Gran # Nucleated RBCs # INR 1.6 PT Patient/Control Mix 17.0 ABG pH ABG pCO2 ABG pO2 ABG HCO3 ABG Total CO2 ABG O2 Saturation ABG Base Excess Sodium 138 Potassium 3.7 Chloride 95 L Carbon Dioxide 15 L Anion Gap 31.7 H BUN 46 H Creatinine 3.40 H GFR Calculation 11 BUN/Creatinine Ratio 13.00 Glucose 110 H POC Glucose 113 H Calculated Osmolality 287.7 Lactic Acid Calcium 7.9 L Magnesium 2.2 Ammonia B-Natriuretic Peptide Anti-Mitochondrial Ab 11/25/16 08:32 WBC RBC Hgb Hct MCV MCH MCHC RDW Plt Count MPV Neut % (Auto) Lymph % (Auto) [place] % (Auto) Eos % (Auto) Baso % (Auto) Neut # (Auto) Lymph # (Auto) [place] # (Auto) Eos # (Auto) Baso # (Auto) Immature Gran % Nucleated RBC % Immature Gran # Nucleated RBCs # INR PT Patient/Control Mix ABG pH ABG pCO2 ABG pO2 ABG HCO3 ABG Total CO2 ABG O2 Saturation ABG Base Excess Sodium Potassium Chloride Carbon Dioxide Anion Gap BUN Creatinine GFR Calculation BUN/Creatinine Ratio Glucose POC Glucose Calculated Osmolality Lactic Acid 10.1 H Calcium Magnesium Ammonia B-Natriuretic Peptide Anti-Mitochondrial Ab - Diagnostic Findings Procedure: Chest x-ray: report reviewed by me - EKG EKG results: interpreted by me EKG shows: sinus rhythm
[2016-11-25] MEDS: miSOPROStol 200 MCG TABLET PER TUBE SCH ×4 (09:58→22:03)
[2016-11-25] MEDS: PANTOPRAZOLE 40 MG VIAL IV SCH ×2 (09:58→22:03)
[2016-11-25] MEDS: VENLAFAXINE 75 MG TABLET PO SCH (09:58)
[2016-11-25] MEDS: ASCORBIC ACID 500 MG TABLET PO SCH ×2 (09:59→22:03)
[2016-11-25] MEDS: SODIUM BICARB INJ 50 MEQ in DEXTROSE 5% 1,000 ML IV SCH ×5 (09:59→22:28)
[2016-11-25] MEDS: PHYTONADIONE 10 MG/1 ML AMP SUBCUT SCH (10:00)
--- NOTE | 2016-11-25 10:40 | Pulmonology Progress Note ---
Pulmonary - PN: Subj Interval history: This is a 56-year-old white female whom I saw in pulmonary consultation on 2016. I was asked to treat her pulmonary status and manage mechanical ventilation. My impressions were. 1. Known heart disease with a past history of congestive heart failure and with acute congestive heart failure. Echocardiogram done 11/20/2016 showed left ventricular ejection fraction of 15% with global hypokinesis, moderate mitral regurgitation, mild to moderate tricuspid regurgitation. Aortic valve was normal. Pulmonary artery pressure was estimated to be 51 mmHg. I suspect that the pulmonary hypertension is related to the patient's mitral regurgitation. 2. History of cardiac arrhythmia requiring cardiac pacemaker 3. Acute cardiac arrest 4. Tobacco abuse 5. Toxicology. Positive opiates and cannabinoids. 6. Acute on chronic renal failure. 7. Severe hypotension with metabolic acidosis requiring pressor agents. 8. Abnormal liver function tests. 9. See above 10. Following my consultation was found that the patient was in mild liver failure. She had an INR greater than 20 with low fiber prevention. It is thought that we are dealing with disseminated intravascular coagulation. 11/22/2016. Today's chest x-ray shows cardiomegaly. There are increased interstitial markings which are compatible with very mild pulmonary edema. Endotracheal tube is in good position. INR is dropped to 8.0. ABGs on mechanical ventilation showed pH is 7.549. PCO2 is 26.4. PO2 is 198. Bicarb is 22.5. Potassium is low at 3.4. Sodium is 139. Creatinine is increased to 2.60 with a BUN of 38. AST is greater than 2000. ALT is 1538. Alkaline [place] is normal at 86. Total bilirubin is 4.50 with a direct bilirubin of 3.00 and indirect bilirubin 1.5. C-reactive protein is elevated at 3.36. Natruretic peptide is elevated at 3777. Protein and albumin are low at 4.3 and 2.4 respectively. Sedimentation rate is 1 which is what I would expect if fibrinogen is being consumed with a coagulopathy. There are no positive cultures. Patient remains on 2 pressor agents. She is also on antibiotics. She is not on steroids. Patient has been seen in cardiology consultation by Dr. Jose Aiken, renal consultation by Dr. Se Pulliam. 11/23/2016. Chest x-ray shows cardiomegaly. Left diaphragm is not visible. There are bilateral increased interstitial markings compatible with congestive heart failure. Endotracheal tube is near the fede. ABGs are noted and discussed with Dr. Se Pulliam. Adjustments have been made and mechanical ventilation and follow-up ABGs are pending. Potassium is low at 3.1 is being replaced. Creatinine is 2.90 with a BUN of 36. This patient continues to have an elevated lactic acid level at 3.5 she is on 2 pressor agents. Her calcium is low at 7.3 and albumin is low at 2.1 total proteins of 4.0. Natruretic peptide is gradually decreasing but remains elevated 1998. Total bilirubin is 4.90. Direct bilirubin is 3.20. AST and ALT are 2565 and 1152 respectively. Alkaline Viral is normal. Ammonia level is elevated at 53. White blood cell count is 14,300 with 85 segs. H&H is 12.2/35.2. Platelets have increased to 120,000 and INR is dropped to 3.3. This patient was tried on a T-tube for a few minutes but she could not tolerate it. We will continue weaning protocol with CPAP. Patient is has multi-organ disease and I suspect she will be very slow to wean from mechanical ventilation. 11/24/2016. Chest x-ray. Massive cardiomegaly. There are increased interstitial markings and alveolar filling bilaterally. This is improved a good bit with PEEP and pressure support. This patient has significant heart disease with a decreased ejection fraction and if it were not for PEEP and pressure support her congestive heart failure findings on chest x-ray would be much more prominent. With the addition of pressure support ABGs have improved significantly. On FiO2 100% pH is 7.47, P CO2 is 21 and PO2 is 316 with a bicarb of 19.2. Today I have decreased the FiO2. Creatinine is 3.20. BUN is 40. Electrolytes are normal. Ammonia level has dropped to 32. Total bilirubin is 6.00 with a direct of 4.1. Transaminases remain significantly elevated. White count is 13,300 with 78 segs. H&H 13.5/38.4. There are no positive cultures this patient has respiratory failure, congestive heart failure , severe heart disease, acute kidney failure. She also has acute liver failure and on the right lying cirrhosis of the liver. There is a very long history of alcohol abuse and apparently of drug abuse. 11/25/2016. Patient's family has made her DO NOT RESUSCITATE. Chest x-ray is stable revealing compensated congestive heart failure. ABGs are stable. Electrolytes are normal. Creatinine is 3.4 with a BUN of 46. White count is 12 ,200 with 78 segs. H&H is stable at 13.3/38.3. Ammonia level was elevated 42. Lactic acid is 10.1 on multiple pressor agents. Liver function tests are abnormal. Prognosis remains very poor. Labs been reviewed. Medicines been reviewed. Doppler venograms of the lower extremities done 11/21/2016 showed no evidence of deep venous thrombophlebitis Ultrasound of the abdomen done 11/20/2016. Gallbladder sludge and/or micro- stones. No evidence of acute cholecystitis. Minimal left perinephric fluid of uncertain significance. No hydronephrosis. Patient's on the weaning protocol. She does not tolerate T-tube. Physical exam. Vital signs. See below. Blood pressure requires 2 pressor agents. Chest. Rales. Heart. Far lateral PMI Abdomen. Only rare bowel sounds. Lower extremities. Skin changes of chronic venous stasis. Psychiatric. Impossible to discern. Neurological. Impossible to discern. Neck. No meningismus. Lymphatics. No submandibular cervical supraclavicular adenopathy. Plan. 11/21/2016. #1 repeat ABGs. 2. We will make ventilator adjustments. Patient will be put on the weaning protocol and physical therapy protocol. 3. Proton pump inhibitors 4. Follow-up chest x-ray and ABGs 5. Ammonia level 6. Thyroid function tests. 6. Doppler venograms of the lower extremities 7. Echocardiogram 8. Cardiology consultation 11/22/2016. 1. Weaning protocol. 2. Physical therapy protocol. 3. Daily chest x-ray and ABGs. 4. Daily lab. 11/23/2016. 1. See today's note above 11/24/2016. 1. See today's note above. 2. Continue mechanical ventilation. Cardiac status will have to improve a good bit before we can do a whole lot in the way of weaning. 11/25/2016. 1. See today's note above. See my note 11/24/2006 Exam (Progress Note) - Constitutional Vitals: Period Temp Pulse Resp BP Sys/Morse Pulse Ox Last 24 Hr 97.5 F-99.3 F 75-107 12-94 85-115/54-73 89-100 Results - Labs CBC & BMP: 11/25/16 04:00 11/25/16 04:00
--- NOTE | 2016-11-25 10:52 | Gastrointestinal Progress Note ---
<Antonella Sarmiento Guerrero - Last Filed: 11/25/16 10:48> Assessment and Plan (1) GI bleed Status: Acute Assessment and plan: 11/25-no overt bleeding. Continues on pressor support. Plan an addendum to follow by Dr. Gaona. 11/24-no changes at present time. Continues on pressor support. Runs of V. tach noted at present time. DNR. Plan an addendum to follow by Dr. Gaona. 11/23-No further hemetemsis with stable H/H. Continues on Dobutamine and Levophed. INR improved at 3.3. Continue to monitor for further bleeding. Plan and addendum to follow by Dr Gaona. Current Visit: Yes Gastroenterology - PN: Subj Interval history: CC: GI bleed Patient is seen, remaining on ventilator and sedated at this time. She remains on Levophed and dobutamine at this time. Dopamine has been stopped and her ventricular tachycardia seems improved. LFTs were not rechecked today. Ammonia level noted to be at 42. Creatinine is elevated at 3.4 however she is not considered to be a chronic dialysis patient. She continues on IV bicarb due to her metabolic acidosis. Abdomen soft, nontender. ROS: No acute distress at present time. Exam (Progress Note) - Constitutional Vitals: Period Temp Pulse Resp BP Sys/Morse Pulse Ox Last 24 Hr 97.5 F-99.3 F 75-107 12-94 85-115/54-73 89-100 General appearance: normal weight, no acute distress - Head Head exam: Present: normal inspection, normocephalic - Eye Eye exam: Present: other (Lids and conjunctive are unremarkable). Absent: scleral icterus - ENT ENT exam: Present: normal exam, normal oropharynx - Neck Neck exam: Present: normal inspection - Respiratory Respiratory exam: Present: clear to auscultation bilaterally. Absent: rales, rhonchi, wheezes - Cardiovascular Cardiovascular exam: Present: regular rate and rhythm. Absent: diastolic murmur , JVD, systolic murmur - GI/Abdominal GI/Abdominal exam: Present: normal bowel sounds, soft. Absent: ascites, distended, mass, organomegaly, tenderness - Extremities Exam Extremities exam: Present: normal inspection, full ROM - Back Exam Back exam: Present: normal inspection - Neurological Exam Neurological exam: Present: alert, oriented X3 - Psychiatric Psychiatric exam: Present: normal affect, normal mood - Skin Skin exam: Present: normal color, warm, dry Results - Labs CBC & BMP: 11/25/16 04:00 11/25/16 04:00 Lab Results: I have reviewed the past 24 hour labs <Adin Gaona - Last Filed: 11/25/16 19:22> Exam (Progress Note) - Constitutional Vitals: Period Temp Pulse Resp BP Sys/Morse Pulse Ox Last 24 Hr 97.5 F-99.2 F 86-107 17-42 76-115/47-70 95-100 Results - Labs CBC & BMP: 11/25/16 04:00 11/25/16 04:00
--- NOTE | 2016-11-25 11:11 | Hospitalist Progress Note ---
Assessment and Plan (1) Polysubstance abuse Status: Acute Current Visit: Yes (2) Elevated LFTs Problem details: Acute and chronic appearing liver abnormalities, poor synthetic function, low platelets. Appears to have DIC. Status: Acute Assessment and plan: C/W shock liver due to profound hypotension. AST/ALT improved. T. Bili elevated. Continue supportive care. Current Visit: Yes (3) NADIA (acute kidney injury) Problem details: No acute indication for renal replacement therapy. Status: Acute Assessment and plan: Renal function worsening with associated decrease in UOP. Nephrology following. Initiated albumin to attempt improved profusion. No indication for HD at this time per renal. Current Visit: Yes (4) Metabolic acidosis Status: Acute Assessment and plan: Unclear etiology, however considering sepsis and polysubstance abuse within the differential. Lactic acid elevated but improved from admission values. Will continue supportive care with pressors to increase organ profusion. Cont. Sodium Bicarb. as well as Abx. Current Visit: Yes (5) Cardiomyopathy Status: Chronic Assessment and plan: Severely depressed EF at 15%. BNP >5000. On Dobutamine. Cardiology following. Current Visit: Yes (6) Coagulopathy Status: Acute Assessment and plan: 2/2 to shock liver in combination with possible Eliquis toxicity noted on admission. Currently receiving Vit K. Coags improved but remain elevated. Current Visit: Yes (7) Lactic acidosis Status: Acute Assessment and plan: 11/24/16. 2/2 profound hypotension with end organ damage. Etiology of hypotension may be multifactorial to include medication induced and or sepsis or worsening CHF. CXR notes LML and LLL atelectasis/ consolidation. WBC count elevated but improved from admission. Continue pressors and abx to wean as tolerated. 11/25/16. Overall, worsening multisystem organ failure. Worsening lactic acidosis , renal failure and even less arousable without much sedation. Not much more to add. Will increase Bicarb containing fluids per Nephrology. Patient is DNR. Will continue with care as before. Prognosis Poor. Current Visit: Yes Hospitalist: Subjective Interval history: Patient was admitted on the 3rd with acute metabolic acidosis with associated encephalopathy of unclear etiology. Also with multisystem organ failure likely as a result of profound hypotension. She has a diagnosis of CHF with a reduced EF at 15% (systolic dysfunction). BNP >5000. Additionally, she currently has liver function c/w shock liver (AST/ALT decreasing but T. Bili elevated) and worsening renal failure (not requiring HD but with decreasing UOP). An underlying etiology has not been isolated. Sepsis, polysubstance and exacerbation of CHF all in the differential. 11/25/16. Overall, only very minimal change. Off Dopamine currently. Only on Levophed and Dobutamine currently. Dopamine d/c'd. Even less arousable today than previous. Hemodynamically, less episodes of ectopy and arrhythmia. Mag replaced on yesterday. WBC remains elevated but stable. Plts continue to drop. H /H stable. Coags have normalized. Lactate increased to 10.1. Bicarb dropping. S.cr. increased with a further drop in UOP. Liver panel for today is pending at the time of this note. Overall, worsening multisystem organ failure. Not much more to add. Will increase Bicarb containing fluids per Nephrology. Patient is DNR. Will continue with care as before. Prognosis Poor. Exam - Constitutional Vitals: Period Temp Pulse Resp BP Sys/Morse Pulse Ox Last 24 Hr 97.5 F-99.3 F 75-107 12-94 85-115/54-73 89-100 Exam: General appearance: other (Intubated and sedated. Even less arousable with sternal rub and not on sedation this morning.) - Head Head exam: Present: normal inspection, normocephalic, atraumatic - Respiratory Respiratory exam: Present: decreased breath sounds, rhonchi. Absent: rales, wheezes - Cardiovascular Cardiovascular exam: Present: regular rate and rhythm - GI/Abdominal GI/Abdominal exam: Present: hypoactive bowel sounds, soft. Absent: distended, tenderness - Extremities Exam Extremities exam: Present: other (No edema. Cool ext.) - Neurological Exam Neurological exam: Present: other (Not on sedation this morning) Results - Labs CBC & BMP: 11/25/16 04:00 11/25/16 04:00
[2016-11-25 11:40] LABS: Smooth Muscle Antibody Negative (Negative)
[2016-11-25] MEDS: PROPOFOL 1,000 MG/100 ML BOTTLE IV SCH (12:23)
[2016-11-25] MEDS: DOPamine 800 MG/250 ML PREMIX IV SCH (13:31)
[2016-11-26] MEDS: ALBUMIN 25% 25 GM in PREMIX 1 EACH IV SCH (00:42)
[2016-11-26] MEDS: PROPOFOL 1,000 MG/100 ML BOTTLE IV SCH ×3 (00:43→13:01)
[2016-11-26] MEDS: MEROPENEM 500 MG in SODIUM CHLORIDE 0.9% 100 ML IV SCH ×2 (02:11→16:58)
[2016-11-26] MEDS: DOBUTamine 500 MG/250 ML PREMIX IV SCH ×6 (02:12→22:08)
[2016-11-26] MEDS: NOREPINEPHRINE 16 MG in SODIUM CHLORIDE 0.9% 234 ML IV SCH ×3 (02:45→17:26)
--- NOTE | 2016-11-26 04:45 | EKG Report ---
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
[2016-11-26 05:09] LABS: Basophils % 0.2 % (0.0-0.8); Eosinophils % 0.1 % (0.00-10.9); Hematocrit 33.4 VOL% (35.7-47.0); Immature Granulocytes % 2.5 %; Immature Granulocytes Absolute 0.34 #; Lymphocytes # 1.6 10*3/uL (1.4-4.0); Lymphocytes % 11.7 % (21.3-54.2); Mean Corpuscular HGB Conc 35.9 GM/DL (32-36); Mean Corpuscular Hemoglobin 30 PG (27-34); Mean Corpuscular Volume 82.1 FL (87-102); Mean Platelet Volume 11.2 FL (9.6-12.0); Monocytes # 0.6 10*3/uL (0.11-0.8); NRBC # 0.47 10*3/uL; Neutrophils # 11.2 10*3/uL (1.4-7.4); Neutrophils % 81.5 % (38.7-73.9); Red Blood Count 4.07 MC/CUMM (3.8-5.5); Red Cell Distribution Width 18.9 % (9.3-17.3); White Blood Count 13.7 T/CUMM (4-12)
[2016-11-26 05:11] LABS: ABG Base Excess -4.4 MMOL/L (-2.5-2.5); ABG HCO3 20.7 MMOL/L (20-26); ABG Oxygen Saturation 95.3 % (95-100); ABG PH 7.442 (7.35-7.45); ABG TCO2 16.3 MMOL/L (23-27); Platelet Count 67 T/CUMM (130-400)
[2016-11-26 05:34] LABS: INR 1.6; PT Patient Result 17.8 SECS
[2016-11-26 05:44] LABS: Band Neutrophils 4 % (0-10); Burr Cells Slight; Hypochromasia 1+; Lymphocytes 6 % (20-55); Macrocytosis Slight; Nucleated Red Blood Cells 2 (0-5); Platelet Estimate Decreased; Polychromasia Slight; Segmented Neutrophils 85 % (50-85); Total Cells Counted 100
[2016-11-26 05:45] LABS: Calcium 7.4 MG/DL (8.5-10.1); Magnesium 2.1 MG/DL (1.8-2.4); Osmolality,Calculated 287.4 MOS/KG (273-304); Potassium 2.9 MMOL/L (3.5-5.1)
[2016-11-26 06:05] LABS: Albumin 2.9 G/DL (3.4-5.0); Bilirubin,Direct 7.2 MG/DL (0.0-0.20); Bilirubin,Indirect 2.3 MG/DL (0.0-1.0); Bilirubin,Total 9.5 MG/DL (0.2-1.0); Total Protein 4.3 G/DL (6.4-8.3)
[2016-11-26 06:26] LABS: Ceruloplasmin 39 mg/dL (18-53)
[2016-11-26] MEDS: POTASSIUM CHLORIDE RIDER 20 MEQ in PREMIX 1 EACH IV PRN ×5 (06:44→23:19)
[2016-11-26] MEDS: SODIUM BICARB INJ 50 MEQ in DEXTROSE 5% 1,000 ML IV SCH ×4 (07:28→20:25)
--- NOTE | 2016-11-26 08:06 | XRay Report ---
XR chest 1V portable Indication: Ventilator Comparison: Chest x-ray dated November 25, 2016 Technique: Single frontal view of the chest. Findings: Endotracheal tube approximately 3 cm above the fede. Continued cardiomegaly. Cardiac pacemaker apparatus again demonstrated. Redemonstration of mild bilateral mid and lower lung opacification with probable small layering bilateral pleural fluid. Visualized osseous and surrounding soft tissue structures appear grossly unchanged. IMPRESSION: No significant interval change. PROCEDURE INTERPRETED AT [facility] DEPARTMENT OF RADIOLOGY Final Report Signed by: Dr Cortez Comer
--- NOTE | 2016-11-26 08:36 | Hospitalist Progress Note ---
Assessment and Plan - Time spent with patient Time spent with patient: Greater than 30 minutes (1) Cardiorespiratory failure Status: Acute Assessment and plan: Continue current vent support. 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 Current Visit: Yes (2) Hypokalemia Status: Acute Assessment and plan: Replenish KCl cautiously as Cr is 3.4 today. Current Visit: Yes (3) Polysubstance abuse Status: Acute Assessment and plan: Continue current supportive care Current Visit: Yes (4) Elevated LFTs Problem details: Acute and chronic appearing liver abnormalities, poor synthetic function, low platelets. Appears to have DIC. Status: Acute Assessment and plan: Contine current supportive care Current Visit: Yes (5) NADIA (acute kidney injury) Problem details: No acute indication for renal replacement therapy. Status: Acute Assessment and plan: IVF. Monitor Cr level. Nephrology f/u. Current Visit: Yes (6) Pacemaker Status: Chronic Current Visit: Yes (7) Cardiomyopathy Status: Chronic Assessment and plan: Chronic, EF 15%. Poor prognosis Current Visit: Yes (8) Coagulopathy Status: Acute Assessment and plan: Improving. Current Visit: Yes Hospitalist: Subjective Interval history: No overnight acute event. On Vent. On Propofol sedation at 5mcg. Decreased UOP. LFP improving. Leukocytosis remains. Cr 3.4 today same as yesterday. No fever, vomiting or hematuria reported per support staff. Exam - Constitutional Vitals: Period Temp Pulse Resp BP Sys/Morse Pulse Ox Last 24 Hr 97.5 F-99.2 F 86-108 12-42 76-139/47-72 94-100 Exam: GENERAL: On vent and sedated. HEENT: Pupils equally round and reactive to light, Normal lips, teeth and gums. ET tube in place. NECK: Supple without mass. HEART: RRR, no murmur. CHEST: Normal shape, fair air movement, no retractions. CV: RRR, no murmurs, 2+ peripheral pulses LUNGS: Decreased breath sound at b/l lower lobes. ABDOMEN: Soft, ND SKIN: No rash or edema. LYMPH: No anterior or posterior cervical, or supraclavicular lymphadenopathy. NEURO: On vent and sedated Results - Labs CBC & BMP: 11/26/16 05:05 11/26/16 05:05 - Diagnostic Findings Procedure: Chest x-ray: report reviewed by me (Stable when compared to last CXR)
--- NOTE | 2016-11-26 08:38 | Pulmonology Progress Note ---
Pulmonary - PN: Subj Interval history: This is a 56-year-old white female whom I saw in pulmonary consultation on 2016. I was asked to treat her pulmonary status and manage mechanical ventilation. My impressions were. 1. Known heart disease with a past history of congestive heart failure and with acute congestive heart failure. Echocardiogram done 11/20/2016 showed left ventricular ejection fraction of 15% with global hypokinesis, moderate mitral regurgitation, mild to moderate tricuspid regurgitation. Aortic valve was normal. Pulmonary artery pressure was estimated to be 51 mmHg. I suspect that the pulmonary hypertension is related to the patient's mitral regurgitation. 2. History of cardiac arrhythmia requiring cardiac pacemaker 3. Acute cardiac arrest 4. Tobacco abuse 5. Toxicology. Positive opiates and cannabinoids. 6. Acute on chronic renal failure. 7. Severe hypotension with metabolic acidosis requiring pressor agents. 8. Abnormal liver function tests. 9. See above 10. Following my consultation was found that the patient was in mild liver failure. She had an INR greater than 20 with low fiber prevention. It is thought that we are dealing with disseminated intravascular coagulation. 11/22/2016. Today's chest x-ray shows cardiomegaly. There are increased interstitial markings which are compatible with very mild pulmonary edema. Endotracheal tube is in good position. INR is dropped to 8.0. ABGs on mechanical ventilation showed pH is 7.549. PCO2 is 26.4. PO2 is 198. Bicarb is 22.5. Potassium is low at 3.4. Sodium is 139. Creatinine is increased to 2.60 with a BUN of 38. AST is greater than 2000. ALT is 1538. Alkaline [place] is normal at 86. Total bilirubin is 4.50 with a direct bilirubin of 3.00 and indirect bilirubin 1.5. C-reactive protein is elevated at 3.36. Natruretic peptide is elevated at 3777. Protein and albumin are low at 4.3 and 2.4 respectively. Sedimentation rate is 1 which is what I would expect if fibrinogen is being consumed with a coagulopathy. There are no positive cultures. Patient remains on 2 pressor agents. She is also on antibiotics. She is not on steroids. Patient has been seen in cardiology consultation by Dr. Jose Aiken, renal consultation by Dr. Se Pulliam. 11/23/2016. Chest x-ray shows cardiomegaly. Left diaphragm is not visible. There are bilateral increased interstitial markings compatible with congestive heart failure. Endotracheal tube is near the fede. ABGs are noted and discussed with Dr. Se Pulliam. Adjustments have been made and mechanical ventilation and follow-up ABGs are pending. Potassium is low at 3.1 is being replaced. Creatinine is 2.90 with a BUN of 36. This patient continues to have an elevated lactic acid level at 3.5 she is on 2 pressor agents. Her calcium is low at 7.3 and albumin is low at 2.1 total proteins of 4.0. Natruretic peptide is gradually decreasing but remains elevated 1998. Total bilirubin is 4.90. Direct bilirubin is 3.20. AST and ALT are 2565 and 1152 respectively. Alkaline Viral is normal. Ammonia level is elevated at 53. White blood cell count is 14,300 with 85 segs. H&H is 12.2/35.2. Platelets have increased to 120,000 and INR is dropped to 3.3. This patient was tried on a T-tube for a few minutes but she could not tolerate it. We will continue weaning protocol with CPAP. Patient is has multi-organ disease and I suspect she will be very slow to wean from mechanical ventilation. 11/24/2016. Chest x-ray. Massive cardiomegaly. There are increased interstitial markings and alveolar filling bilaterally. This is improved a good bit with PEEP and pressure support. This patient has significant heart disease with a decreased ejection fraction and if it were not for PEEP and pressure support her congestive heart failure findings on chest x-ray would be much more prominent. With the addition of pressure support ABGs have improved significantly. On FiO2 100% pH is 7.47, P CO2 is 21 and PO2 is 316 with a bicarb of 19.2. Today I have decreased the FiO2. Creatinine is 3.20. BUN is 40. Electrolytes are normal. Ammonia level has dropped to 32. Total bilirubin is 6.00 with a direct of 4.1. Transaminases remain significantly elevated. White count is 13,300 with 78 segs. H&H 13.5/38.4. There are no positive cultures this patient has respiratory failure, congestive heart failure , severe heart disease, acute kidney failure. She also has acute liver failure and on the right lying cirrhosis of the liver. There is a very long history of alcohol abuse and apparently of drug abuse. 11/25/2016. Patient's family has made her DO NOT RESUSCITATE. Chest x-ray is stable revealing compensated congestive heart failure. ABGs are stable. Electrolytes are normal. Creatinine is 3.4 with a BUN of 46. White count is 12 ,200 with 78 segs. H&H is stable at 13.3/38.3. Ammonia level was elevated 42. Lactic acid is 10.1 on multiple pressor agents. Liver function tests are abnormal. Prognosis remains very poor. 11/26/2016. This patient is on Levophed and dobutamine for pressor agents. Adjustments were made in the ventilator yesterday to improve oxygenation. She requires an FiO2 of 70%. She is basically unarousable and cannot cooperate. Chest x-ray shows compensated pulmonary edema which is a little worse than it was yesterday. Endotracheal tube is at the distal trachea just above the fede. There is good aeration of both lungs. ABGs on mechanical ventilation FiO2 70% shows a pH 7.44, PCO2 27, PO2 of 85 and a bicarb of 20.7. Sodium is 133. Potassium is 2.9. Chloride is 90. Creatinine is 3.40 with a BUN of 59. Total bilirubin is 9.50 with direct bilirubin of 7.20. Transaminases remain elevated but have improved. Alkaline [place] is normal. White count is 13,781.5 segs H&H 12.0 33.4 and platelets are 67,000. There are no positive cultures. Labs been reviewed. Medicines been reviewed. Doppler venograms of the lower extremities done 11/21/2016 showed no evidence of deep venous thrombophlebitis Ultrasound of the abdomen done 11/20/2016. Gallbladder sludge and/or micro- stones. No evidence of acute cholecystitis. Minimal left perinephric fluid of uncertain significance. No hydronephrosis. Patient's on the weaning protocol. She does not tolerate T-tube. Physical exam. Vital signs. See below. Blood pressure requires 2 pressor agents. Chest. Rales. Heart. Far lateral PMI Abdomen. Only rare bowel sounds. Lower extremities. Skin changes of chronic venous stasis. Psychiatric. Impossible to discern. Neurological. Impossible to discern. Neck. No meningismus. Lymphatics. No submandibular cervical supraclavicular adenopathy. Plan. 11/21/2016. #1 repeat ABGs. 2. We will make ventilator adjustments. Patient will be put on the weaning protocol and physical therapy protocol. 3. Proton pump inhibitors 4. Follow-up chest x-ray and ABGs 5. Ammonia level 6. Thyroid function tests. 6. Doppler venograms of the lower extremities 7. Echocardiogram 8. Cardiology consultation 11/22/2016. 1. Weaning protocol. 2. Physical therapy protocol. 3. Daily chest x-ray and ABGs. 4. Daily lab. 11/23/2016. 1. See today's note above 11/24/2016. 1. See today's note above. 2. Continue mechanical ventilation. Cardiac status will have to improve a good bit before we can do a whole lot in the way of weaning. 11/25/2016. 1. See today's note above. See my note 11/24/2016 11/26/2016. 1. See my note above from today. 2. From a pulmonary standpoint we can continue to support support the patient. We will keep trying weaning protocol but this does not look hopeful. Physical therapy protocol been ordered earlier during the patient's hospitalization. With multi-organ system failure prognosis is very poor. Family has made the patient a DO NOT RESUSCITATE. Exam (Progress Note) - Constitutional Vitals: Period Temp Pulse Resp BP Sys/Morse Pulse Ox Last 24 Hr 97.5 F-99.2 F 86-108 12-42 76-139/47-72 94-100 Results - Labs CBC & BMP: 11/26/16 05:05 11/26/16 05:05
[2016-11-26] MEDS ORDERED: POTASSIUM CHLORIDE 20 MEQ/15 ML UDCUP PO ONE (09:00)
[2016-11-26] MEDS: PANTOPRAZOLE 40 MG VIAL IV SCH ×2 (09:00→22:00)
[2016-11-26] MEDS: VENLAFAXINE 75 MG TABLET PO SCH (09:01)
[2016-11-26] MEDS: ASCORBIC ACID 500 MG TABLET PO SCH ×2 (09:01→22:01)
[2016-11-26] MEDS: miSOPROStol 200 MCG TABLET PER TUBE SCH ×4 (09:01→22:01)
--- NOTE | 2016-11-26 09:43 | Nephrology Progress Note ---
Nephrology - PN: Subj Interval history: Pt unresponsive. No acute overnight events. Intubated/ventilated. CO2 improved. K low at 2.9 with IVFs change yesterday. Creatinine stable. Exam (PN)-Nephrology - Vital Signs Vital signs: Period Temp Pulse Resp BP Sys/Morse Pulse Ox Last 24 Hr 97.5 F-99.2 F 86-108 12-42 76-139/47-72 93-100 - General Appearance General appearance: chronically ill, sedated on ventilator, intubated EENT: ATNC, PERRL Neck: JVD, no thyromegaly Respiratory: no kyphosis, rales Cardiology: no murmurs, no rub Gastrointestinal: normoactive bowel sounds, no tenderness Integumentary: no rash, warm and dry Neurologic: obtunded Musculoskeletal: no deformities, no erythema - Lab 11/26/16 05:05 11/26/16 05:05 Most recent lab results ABG pH 7.442 (7.35-7.45) 11/26/16 05:05 ABG pCO2 27.0 MM HG (35-48) L 11/26/16 05:05 ABG pO2 85.0 MM HG (80-95) 11/26/16 05:05 ABG HCO3 20.7 MMOL/L (20-26) 11/26/16 05:05 ABG O2 Saturation 95.3 % (95-100) 11/26/16 05:05 Calcium 7.4 MG/DL (8.5-10.1) L 11/26/16 05:05 Phosphorus 2.9 MG/DL (2.5-4.9) 11/22/16 04:59 Magnesium 2.1 MG/DL (1.8-2.4) 11/26/16 05:05 Assessment and Plan (1) NADIA (acute kidney injury) Problem details: No acute indication for renal replacement therapy. Status: Acute Assessment and plan: Not a chronic dialysis candidate due to poor predicted one year survival and comorbidities. Current Visit: Yes (2) Metabolic acidosis Status: Acute Assessment and plan: Lactate still high, c/w ongoing ishcemia. Continue bicarb containing IVFs. Current Visit: Yes (3) Altered mental status Problem details: Sepsis, polysubstance abuse, hepatic encephalopathy all in the differential. Status: Acute Assessment and plan: No identified infection to date. Current Visit: Yes (4) Elevated LFTs Problem details: Acute and chronic appearing liver abnormalities, poor synthetic function, low platelets. Appears to have DIC. Status: Acute Assessment and plan: No schistocytosis on peripheral smear. Continue misoprostol to help reverse intrinsic renal vasoconstriction seen with liver failure. Current Visit: Yes (5) Cardiorespiratory failure Status: Acute Current Visit: Yes
--- NOTE | 2016-11-26 09:59 | Cardiology Progress Note ---
Assessment and Plan - Time spent with patient Time spent with patient: Greater than 30 minutes (1) Cardiomyopathy Status: Chronic Assessment and plan: SEE PLAN OF CARE LISTED BELOW Current Visit: Yes (2) Cardiorespiratory failure Status: Acute Assessment and plan: SEE PLAN OF CARE LISTED BELOW Current Visit: Yes (3) Coagulopathy Status: Acute Assessment and plan: SEE PLAN OF CARE LISTED BELOW Current Visit: Yes (4) GI bleed Status: Acute Assessment and plan: SEE PLAN OF CARE LISTED BELOW Current Visit: Yes (5) Metabolic acidosis Status: Acute Assessment and plan: SEE PLAN OF CARE LISTED BELOW Current Visit: Yes (6) Pacemaker Status: Chronic Assessment and plan: SEE PLAN OF CARE LISTED BELOW Current Visit: Yes (7) Polysubstance abuse Status: Acute Assessment and plan: SEE PLAN OF CARE LISTED BELOW Current Visit: Yes Cardiology - PN: Subj Interval history: H[employer] 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 SHARP SUMMARY: Ms. Hall, 56WF, has a long-standing history of cardiomyopathy, status post pacemaker implantation followed by Dr. Sharp in [place]. History of polysubstance abuse including cannabinoids, opiates and benzodiazepines. Patient was admitted to the ICU of [facility] with mental status changes and confusion. The evening of admission, patient coded but did not lose her heart rhythm though she did lose her pulse transiently. This responded to vasopressors. She has been housed in our ICU requiring Dobutamine and Levophed. She is currently also on IV sodium bicarbonate to treat her metabolic acidosis of unknown etiology. Liver function tests remain abnormal ( suspected to be related to hypotension). Cardiac enzyme panel is not consistent with acute coronary syndrome. Echocardiogram reveals EF 15% with global hypokinesis, moderate mitral regurgitation. PAP 51 mmHg. Eliquis has been held since November 21, 2016 due to possible GI bleed and coagulopathy (INR greater than 20). NOVEMBER 23, 2016: Patient is being treated for sepsis. Her metabolic acidosis is slowly improving. Continues to require mechanical ventilation due to cardiorespiratory failure. Still requiring vasopressors. Her prognosis is poor. She is hypokalemic. We will continue to follow her labs closely daily. I will ask that telemetry monitoring be recorded and scanned in in order to assess her rhythm. NOVEMBER 24, 2016: Increased FiO2 requirement noted overnight. She is unresponsive to verbal or tactile stimuli. She is currently requiring IV Levophed, Dopamine and Dobutamine. She is having intermittent runs of NSVT. This is not unexpected given the severity of her illness. Magnesium is 1.7 and we will replace, monitoring closely. Unfortunately, she is in shock liver failure and Amiodarone is not an option. Hypotension prevents use of acacia blocking agents. Prognosis is poor. She is now DNR. Will discuss with Dr. Lemus and await additional recommendations. NOVEMBER 25, 2016: Overnight, patient is off Dopamine. Frequency of NSVT seems to have improved. Continues to require Levophed and Dobutamine. She is now a DNR with multiorgan failure. Creatinine continues to worsen. Continue aggressive care. Little to add from a cardiac standpoint. NOVEMBER 26, 2016: Ms. Hall remains critically ill. There is been no improvement. She still requiring vasopressors. She is hypomagnesemic and will place her on magnesium protocol. Poor prognosis. ASSESSMENT/PLAN: 1. CARDIOPULMONARY ARREST - currently requiring mechanical ventilation and vasopressor support. Poor prognosis 2. POLYSUBSTANCE ABUSE - continue current plan of care 3. CARDIOMYOPATHY - EF 15%. Etiology unknown, duration unknown. 4. METABOLIC ACIDOSIS - continue current plan of care. 5. ACUTE RENAL FAILURE - stage IV. Unknown if this acute on chronic. 6. SUSPECTED SEPSIS - uncertain at this time. Continue current plan of care 7. COAGULOPATHY - little improvement. Holding Eliquis 8. S/P PACEMAKER - followed by Dr. Sharp in [place], [place] 9. NSVT - replacing magnesium. Adding magnesium protocol. Not a candidate for acacia blocking agents (hypotension) or Amiodorone (liver failure) 10. DNR - continue current plan of care Exam (Progress Note) - Constitutional Vitals: Period Temp Pulse Resp BP Sys/Morse Pulse Ox Last 24 Hr 97.5 F-99.2 F 86-108 12-42 76-139/47-72 93-100 Exam: General: [Appears ill. ] [Appears comfortable.] HEENT: [Normocephalic, atraumatic. Mucous membranes moist. No jaundice noted. Conjunctiva moist and clear, sclerae anicteric] Neck: No obvious JVD/HJR, no thyromegaly or lymphadenopathy noted. No carotid bruit appreciated Cardiac: [Regular rate and rhythm.] [No obvious murmur rub or gallop.] Lungs: [Rhonchi noted throughout. Intubated with symmetrical chest wall movements. Abdomen: Soft, bowel sounds normoactive. Nontender and nondistended. No abdominal bruit or thrill noted. No masses noted. Musculoskeletal: No fluid collection. Decreased range of motion is noted. Extremities: No clubbing, cyanosis noted. [Trace bilateral lower extremity edema noted.] Upper extremity pulses 2+. Lower extremity pulses 2+. Capillary refill less than 3 seconds. Skin: No unusual lesions or rashes. No skin breakdown appreciated. Neuro: Sedated, moving extremities when sedation with health. No essential tremor is appreciated. Result/EKG - Labs CBC & BMP: 11/26/16 05:05 11/26/16 14:27 Lab Results: I have reviewed the past 24 hour labs Labs: Laboratory Results - last 24 hr 11/21/16 11/25/16 11/25/16 16:48 11:18 17:52 WBC RBC Hgb Hct MCV MCH MCHC RDW Plt Count MPV Neut % (Auto) Lymph % (Auto) [place] % (Auto) Eos % (Auto) Baso % (Auto) Neut # (Auto) Lymph # (Auto) [place] # (Auto) Eos # (Auto) Baso # (Auto) Total Counted Immature Gran % Nucleated RBC % Immature Gran # Segmented Neutrophils Band Neutrophils Lymphocytes Monocytes Nucleated RBCs Nucleated RBCs # Platelet Estimate Polychromasia Hypochromasia Macrocytosis Dmitriy Cells Morphology Comment INR PT Patient/Control Mix ABG pH ABG pCO2 ABG pO2 ABG HCO3 ABG Total CO2 ABG O2 Saturation ABG Base Excess Sodium Potassium Chloride Carbon Dioxide Anion Gap BUN Creatinine GFR Calculation BUN/Creatinine Ratio Glucose POC Glucose 100 174 H Calculated Osmolality Calcium Magnesium Total Bilirubin Direct Bilirubin Indirect Bilirubin AST ALT Alkaline Phosphatase Total Protein Albumin Ceruloplasmin 39 Anti-Smooth Muscle Ab Negative 11/25/16 11/26/16 11/26/16 23:53 05:05 05:05 WBC 13.7 H RBC 4.07 Hgb 12.0 Hct 33.4 L MCV 82.1 L MCH 30 MCHC 35.9 RDW 18.9 H Plt Count 67 L D MPV 11.2 Neut % (Auto) 81.5 H Lymph % (Auto) 11.7 L [place] % (Auto) 4.0 Eos % (Auto) 0.1 Baso % (Auto) 0.2 Neut # (Auto) 11.2 H Lymph # (Auto) 1.6 [place] # (Auto) 0.6 Eos # (Auto) 0.0 Baso # (Auto) 0.0 Total Counted 100 Immature Gran % 2.5 Nucleated RBC % 3.4 Immature Gran # 0.34 Segmented Neutrophils 85 Band Neutrophils 4 Lymphocytes 6 L Monocytes 5 Nucleated RBCs 2 Nucleated RBCs # 0.47 Platelet Estimate Decreased Polychromasia Slight Hypochromasia 1+ Macrocytosis Slight [place] Cells Slight Morphology Comment INR PT Patient/Control Mix ABG pH 7.442 ABG pCO2 27.0 L ABG pO2 85.0 ABG HCO3 20.7 ABG Total CO2 16.3 L ABG O2 Saturation 95.3 ABG Base Excess -4.4 L Sodium Potassium Chloride Carbon Dioxide Anion Gap BUN Creatinine GFR Calculation BUN/Creatinine Ratio Glucose POC Glucose 189 H Calculated Osmolality Calcium Magnesium Total Bilirubin Direct Bilirubin Indirect Bilirubin AST ALT Alkaline Phosphatase Total Protein Albumin Ceruloplasmin Anti-Smooth Muscle Ab 11/26/16 11/26/16 11/26/16 05:05 05:05 05:05 WBC RBC Hgb Hct MCV MCH MCHC RDW Plt Count MPV Neut % (Auto) Lymph % (Auto) [place] % (Auto) Eos % (Auto) Baso % (Auto) Neut # (Auto) Lymph # (Auto) [place] # (Auto) Eos # (Auto) Baso # (Auto) Total Counted Immature Gran % Nucleated RBC % Immature Gran # Segmented Neutrophils Band Neutrophils Lymphocytes Monocytes Nucleated RBCs Nucleated RBCs # Platelet Estimate Polychromasia Hypochromasia Macrocytosis Dmitriy Cells Morphology Comment INR 1.6 PT Patient/Control Mix 17.8 ABG pH ABG pCO2 ABG pO2 ABG HCO3 ABG Total CO2 ABG O2 Saturation ABG Base Excess Sodium 133 L Potassium 2.9 L Chloride 90 L Carbon Dioxide 19 L Anion Gap 26.9 H BUN 54 H Creatinine 3.40 H GFR Calculation 11 BUN/Creatinine Ratio 15.00 Glucose 217 H POC Glucose Calculated Osmolality 287.4 Calcium 7.4 L Magnesium 2.1 Total Bilirubin 9.50 H Direct Bilirubin 7.20 H Indirect Bilirubin 2.3 H AST 260 H ALT 279 H Alkaline Phosphatase 57 Total Protein 4.3 L Albumin 2.9 L Ceruloplasmin Anti-Smooth Muscle Ab 11/26/16 05:50 WBC RBC Hgb Hct MCV MCH MCHC RDW Plt Count MPV Neut % (Auto) Lymph % (Auto) [place] % (Auto) Eos % (Auto) Baso % (Auto) Neut # (Auto) Lymph # (Auto) [place] # (Auto) Eos # (Auto) Baso # (Auto) Total Counted Immature Gran % Nucleated RBC % Immature Gran # Segmented Neutrophils Band Neutrophils Lymphocytes Monocytes Nucleated RBCs Nucleated RBCs # Platelet Estimate Polychromasia Hypochromasia Macrocytosis Dmitriy Cells Morphology Comment INR PT Patient/Control Mix ABG pH ABG pCO2 ABG pO2 ABG HCO3 ABG Total CO2 ABG O2 Saturation ABG Base Excess Sodium Potassium Chloride Carbon Dioxide Anion Gap BUN Creatinine GFR Calculation BUN/Creatinine Ratio Glucose POC Glucose 225 H Calculated Osmolality Calcium Magnesium Total Bilirubin Direct Bilirubin Indirect Bilirubin AST ALT Alkaline Phosphatase Total Protein Albumin Ceruloplasmin Anti-Smooth Muscle Ab - EKG EKG results: interpreted by me EKG shows: sinus rhythm
[2016-11-26] MEDS ORDERED: POTASSIUM CHLORIDE RIDER 100 ML IV ONE (10:55)
[2016-11-26] MEDS ORDERED: POTASSIUM CHLORIDE IV SCH (11:00)
[2016-11-26] MEDS ORDERED: SODIUM CHLORIDE IV SCH (11:00)
[2016-11-26] MEDS ORDERED: [UNRECOGNIZED DRUG - OTHER] IV SCH (11:00)
--- NOTE | 2016-11-26 11:00 | Gastrointestinal Progress Note ---
<Med Sarmientoher Guerrero - Last Filed: 11/26/16 10:57> Assessment and Plan (1) GI bleed Status: Acute Assessment and plan: 11/26-no changes at present time. Remains on pressure support. No GI bleeding with bowel movement today. Bilirubin elevated however LFTs trending downward. Plan an addendum to follow by Dr. Gaona. 11/25-no overt bleeding. Continues on pressor support. Plan an addendum to follow by Dr. Gaona. 11/24-no changes at present time. Continues on pressor support. Runs of V. tach noted at present time. DNR. Plan an addendum to follow by Dr. Gaona. 11/23-No further hemetemsis with stable H/H. Continues on Dobutamine and Levophed. INR improved at 3.3. Continue to monitor for further bleeding. Plan and addendum to follow by Dr Gaona. Current Visit: Yes Gastroenterology - PN: Subj Interval history: CC: GI bleed Patient is seen, remains sedated on the vent. She continues on pressor support at this time with Levophed and dobutamine. Bilirubin continues to rise at 9.5 however LFTs are trending downwards. Urine output is decreased at this time. Creatinine holding at 3.4. Platelets have trended downward as well at 67. INR 1.6. Abdomen is soft. Nursing staff states she had a large brown loose bowel movement this morning. ROS: No acute distress at present time Exam (Progress Note) - Constitutional Vitals: Period Temp Pulse Resp BP Sys/Morse Pulse Ox Last 24 Hr 97.5 F-99.2 F 86-108 12-42 90-139/52-72 93-100 General appearance: normal weight, no acute distress - Head Head exam: Present: normal inspection, normocephalic - Eye Eye exam: Present: scleral icterus, other (Lids and conjunctive are unremarkable ) - ENT ENT exam: Present: normal exam, normal oropharynx - Neck Neck exam: Present: normal inspection - Respiratory Respiratory exam: Present: clear to auscultation bilaterally. Absent: rales, rhonchi, wheezes - Cardiovascular Cardiovascular exam: Present: regular rate and rhythm. Absent: diastolic murmur , JVD, systolic murmur - GI/Abdominal GI/Abdominal exam: Present: normal bowel sounds, soft. Absent: ascites, distended, mass, organomegaly, tenderness - Extremities Exam Extremities exam: Present: normal inspection - Back Exam Back exam: Present: normal inspection - Neurological Exam Neurological exam: Present: altered - Psychiatric Psychiatric exam: Present: other - Skin Skin exam: Present: normal color, warm, dry Results - Labs CBC & BMP: 11/26/16 05:05 11/26/16 05:05 Lab Results: I have reviewed the past 24 hour labs <Adin Gaona - Last Filed: 11/26/16 18:51> Exam (Progress Note) - Constitutional Vitals: Period Temp Pulse Resp BP Sys/Morse Pulse Ox Last 24 Hr 96.3 F-98.4 F 84-108 12-27 84-139/52-81 93-98 Results - Labs CBC & BMP: 11/26/16 05:05 11/26/16 14:27
[2016-11-26] MEDS: POTASSIUM CHLORIDE RIDER 10 MEQ in PREMIX 1 EACH IV PRN ×2 (11:07→19:20)
[2016-11-26] MEDS: MAGNESIUM SULF RIDER 2 GM in PREMIX 1 EACH IV PRN (15:59)
[2016-11-26 23:03] LABS: Potassium 3.4 MMOL/L (3.5-5.1)
[2016-11-27] MEDS: POTASSIUM CHLORIDE RIDER 10 MEQ in PREMIX 1 EACH IV PRN (01:07)
[2016-11-27] MEDS: NOREPINEPHRINE 16 MG in SODIUM CHLORIDE 0.9% 234 ML IV SCH ×4 (01:19→23:16)
[2016-11-27] MEDS: DOBUTamine 500 MG/250 ML PREMIX IV SCH ×6 (02:00→20:32)
[2016-11-27] MEDS: MEROPENEM 500 MG in SODIUM CHLORIDE 0.9% 100 ML IV SCH ×2 (02:25→15:59)
[2016-11-27 04:01] LABS: ABG Base Excess -9.3 MMOL/L (-2.5-2.5); ABG HCO3 17.1 MMOL/L (20-26); ABG Oxygen Saturation 98.7 % (95-100); ABG PH 7.325 (7.35-7.45); ABG TCO2 13.9 MMOL/L (23-27)
[2016-11-27] MEDS: POTASSIUM CHLORIDE RIDER 20 MEQ in PREMIX 1 EACH IV PRN ×5 (04:25→22:43)
[2016-11-27 04:46] LABS: Calcium 7.5 MG/DL (8.5-10.1); Magnesium 1.8 MG/DL (1.8-2.4); Osmolality,Calculated 276.8 MOS/KG (273-304); Potassium 3.4 MMOL/L (3.5-5.1)
[2016-11-27 04:48] LABS: Basophils % 0.3 % (0.0-0.8); Eosinophils % 0.2 % (0.00-10.9); Hematocrit 35.3 VOL% (35.7-47.0); Hemoglobin 12.7 GM/DL (12.0-16.0); Immature Granulocytes % 0.7 %; Lymphocytes # 0.7 10*3/uL (1.4-4.0); Lymphocytes % 4.8 % (21.3-54.2); Mean Corpuscular Hemoglobin 29 PG (27-34); Mean Corpuscular Volume 81.7 FL (87-102); Monocytes # 0.3 10*3/uL (0.11-0.8); Monocytes % 2.2 % (1.7-12.7); NRBC # 0.52 10*3/uL; Neutrophils # 12.6 10*3/uL (1.4-7.4); Neutrophils % 91.8 % (38.7-73.9); Red Blood Count 4.32 MC/CUMM (3.8-5.5); Red Cell Distribution Width 19.4 % (9.3-17.3); White Blood Count 13.8 T/CUMM (4-12)
[2016-11-27 04:50] LABS: Platelet Count 57 T/CUMM (130-400)
[2016-11-27 05:27] LABS: Band Neutrophils 5 % (0-10); Eosinophils 1 % (0-10); Hypochromasia 1+; Lymphocytes 1 % (20-55); Nucleated Red Blood Cells 10 (0-5); Segmented Neutrophils 89 % (50-85); Total Cells Counted 100
[2016-11-27 05:28] LABS: Burr Cells 1+; Pappenheimer Bodies Few
[2016-11-27 05:29] LABS: Anisocytosis 1+; Microcytosis 1+; Ovalocytes Slight; Poikilocytosis 1+; Polychromasia Slight
[2016-11-27 05:30] LABS: Platelet Estimate Decreased
[2016-11-27] MEDS: MAGNESIUM SULF RIDER 2 GM in PREMIX 1 EACH IV PRN (05:35)
[2016-11-27] MEDS: SODIUM BICARB INJ 50 MEQ in DEXTROSE 5% 1,000 ML IV SCH ×5 (06:21→23:05)
--- NOTE | 2016-11-27 07:54 | XRay Report ---
XR chest 1V portable Indication: Ventilator Comparison: Chest x-ray dated November 26, 2016 Technique: Single frontal view of the chest. Findings: Continued cardiomegaly. Cardiac pacemaker apparatus grossly unchanged. Endotracheal tube ejects approximately 3 cm above the fede. Interval increased diffuse bilateral pulmonary opacification suggesting worsened pulmonary edema or pneumonia. Layering bilateral pleural fluid suspected. Visualized osseous and surrounding soft tissue structures appear grossly unchanged. IMPRESSION: Interval increased diffuse bilateral pulmonary opacification suggesting worsened pulmonary edema or pneumonia. Continued cardiomegaly and layering bilateral pleural fluid. PROCEDURE INTERPRETED AT [facility] DEPARTMENT OF RADIOLOGY Final Report Signed by: Dr Cortez Comer
[2016-11-27] MEDS: ASCORBIC ACID 500 MG TABLET PO SCH ×2 (09:02→20:59)
[2016-11-27] MEDS: VENLAFAXINE 75 MG TABLET PO SCH (09:02)
[2016-11-27] MEDS: PANTOPRAZOLE 40 MG VIAL IV SCH ×2 (09:02→20:58)
[2016-11-27 09:48] LABS: Albumin 2.3 G/DL (3.4-5.0); Bilirubin,Direct 9.2 MG/DL (0.0-0.20); Bilirubin,Indirect 2.8 MG/DL (0.0-1.0); Total Protein 3.6 G/DL (6.4-8.3)
--- NOTE | 2016-11-27 09:50 | Nephrology Progress Note ---
Nephrology - PN: Subj Interval history: Pt unresponsive, still requiring multiple pressors to maintain marginal MAPs in low 60s. More jaundiced. Bili continues to rise, LAEs dropping to near normal range. No etiology for acute liver failure other than ischemia at this point. Creatinine improved to 3.0 for eGFR 18cc/min. CO2 improved, K replaced yesterday , 100meq. Exam (PN)-Nephrology - Vital Signs Vital signs: Period Temp Pulse Resp BP Sys/Morse Pulse Ox Last 24 Hr 96.3 F-97.7 F 84-89 12-85 84-111/51-87 93-99 - General Appearance General appearance: chronically ill, intubated EENT: ATNC, PERRL, mucous membranes moist Neck: JVD, no thyromegaly Respiratory: no kyphosis, no scoliosis Cardiology: no murmurs, no edema Integumentary: no rash, warm and dry Neurologic: obtunded Musculoskeletal: no deformities, no erythema - Lab 11/27/16 03:40 11/27/16 03:40 Most recent lab results ABG pH 7.325 (7.35-7.45) L 11/27/16 03:40 ABG pCO2 30.0 MM HG (35-48) L 11/27/16 03:40 ABG pO2 126.0 MM HG (80-95) H 11/27/16 03:40 ABG HCO3 17.1 MMOL/L (20-26) L 11/27/16 03:40 ABG O2 Saturation 98.7 % (95-100) 11/27/16 03:40 Calcium 7.5 MG/DL (8.5-10.1) L 11/27/16 03:40 Phosphorus 2.9 MG/DL (2.5-4.9) 11/22/16 04:59 Magnesium 1.8 MG/DL (1.8-2.4) 11/27/16 03:40 Assessment and Plan (1) NADIA (acute kidney injury) Problem details: No acute indication for renal replacement therapy. Status: Acute Assessment and plan: Not a chronic dialysis candidate due to poor predicted one year survival and comorbidities. Current Visit: Yes (2) Metabolic acidosis Status: Acute Assessment and plan: Lactate still high (can not be removed with dialysis), c/w ongoing ishcemia. Continue bicarb containing IVFs. Current Visit: Yes (3) Altered mental status Problem details: Sepsis, polysubstance abuse, hepatic encephalopathy all in the differential. Status: Acute Assessment and plan: No identified infection to date. Current Visit: Yes (4) Elevated LFTs Problem details: Per GI service. Status: Acute Assessment and plan: No schistocytosis on peripheral smear. Stop misoprostol. Current Visit: Yes (5) Cardiorespiratory failure Status: Acute Current Visit: Yes
[2016-11-27] MEDS: miSOPROStol 200 MCG TABLET PER TUBE SCH (10:17)
--- NOTE | 2016-11-27 10:20 | Cardiology Progress Note ---
Assessment and Plan - Time spent with patient Time spent with patient: Greater than 30 minutes (1) Cardiomyopathy Status: Chronic Assessment and plan: SEE PLAN OF CARE LISTED BELOW Current Visit: Yes (2) Cardiorespiratory failure Status: Acute Assessment and plan: SEE PLAN OF CARE LISTED BELOW Current Visit: Yes (3) Coagulopathy Status: Acute Assessment and plan: SEE PLAN OF CARE LISTED BELOW Current Visit: Yes (4) GI bleed Status: Acute Assessment and plan: SEE PLAN OF CARE LISTED BELOW Current Visit: Yes (5) Metabolic acidosis Status: Acute Assessment and plan: SEE PLAN OF CARE LISTED BELOW Current Visit: Yes (6) Pacemaker Status: Chronic Assessment and plan: SEE PLAN OF CARE LISTED BELOW Current Visit: Yes (7) Polysubstance abuse Status: Acute Assessment and plan: SEE PLAN OF CARE LISTED BELOW Current Visit: Yes Cardiology - PN: Subj Interval history: 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 Hall, 56WF, has a long-standing history of cardiomyopathy, status post pacemaker implantation followed by Dr. Sharp in [place]. History of polysubstance abuse including cannabinoids, opiates and benzodiazepines. Patient was admitted to the ICU of [facility] with mental status changes and confusion. The evening of admission, patient coded but did not lose her heart rhythm though she did lose her pulse transiently. This responded to vasopressors. She has been housed in our ICU requiring Dobutamine and Levophed. She is currently also on IV sodium bicarbonate to treat her metabolic acidosis of unknown etiology. Liver function tests remain abnormal ( suspected to be related to hypotension). Cardiac enzyme panel is not consistent with acute coronary syndrome. Echocardiogram reveals EF 15% with global hypokinesis, moderate mitral regurgitation. PAP 51 mmHg. Eliquis has been held since November 21, 2016 due to possible GI bleed and coagulopathy (INR greater than 20). NOVEMBER 23, 2016: Patient is being treated for sepsis. Her metabolic acidosis is slowly improving. Continues to require mechanical ventilation due to cardiorespiratory failure. Still requiring vasopressors. Her prognosis is poor. She is hypokalemic. We will continue to follow her labs closely daily. I will ask that telemetry monitoring be recorded and scanned in in order to assess her rhythm. NOVEMBER 24, 2016: Increased FiO2 requirement noted overnight. She is unresponsive to verbal or tactile stimuli. She is currently requiring IV Levophed, Dopamine and Dobutamine. She is having intermittent runs of NSVT. This is not unexpected given the severity of her illness. Magnesium is 1.7 and we will replace, monitoring closely. Unfortunately, she is in shock liver failure and Amiodarone is not an option. Hypotension prevents use of acacia blocking agents. Prognosis is poor. She is now DNR. Will discuss with Dr. Lemus and await additional recommendations. NOVEMBER 25, 2016: Overnight, patient is off Dopamine. Frequency of NSVT seems to have improved. Continues to require Levophed and Dobutamine. She is now a DNR with multiorgan failure. Creatinine continues to worsen. Continue aggressive care. Little to add from a cardiac standpoint. NOVEMBER 26, 2016: Ms. Hall remains critically ill. There is been no improvement. She still requiring vasopressors. She is hypomagnesemic and will place her on magnesium protocol. Poor prognosis. NOVEMBER 27, 2016: Patient continues requiring pressors. Continues to require Dobutamine, Levophed. Neurologically, no improvement. She is having frequent unifocal PVCs this morning. Again, she has hypokalemic and this will be addressed. Unfortunately, total bilirubin is now 12.0, she is more jaundiced. Prognosis grim. DNR. ASSESSMENT/PLAN: 1. CARDIOPULMONARY ARREST - currently requiring mechanical ventilation and vasopressor support. Poor prognosis. 2. POLYSUBSTANCE ABUSE - continue current plan of care 3. CARDIOMYOPATHY - EF 15%. Etiology unknown, duration unknown. 4. METABOLIC ACIDOSIS - continue current plan of care. 5. ACUTE RENAL FAILURE - stage IV. Unknown if this acute on chronic. 6. SUSPECTED SEPSIS - uncertain at this time. Continue current plan of care 7. COAGULOPATHY - little improvement. Holding Eliquis 8. S/P PACEMAKER - followed by Dr. Sharp in [place], [place] 9. NSVT - replacing magnesium per protocol. Not a candidate for acacia blocking agents (hypotension) or Amiodorone (liver failure) 10. DNR - continue current plan of care Exam (Progress Note) - Constitutional Vitals: Period Temp Pulse Resp BP Sys/Morse Pulse Ox Last 24 Hr 96.3 F-97.7 F 84-89 12-85 84-111/51-87 94-99 Exam: General: [Appears ill. ] [Appears comfortable.] HEENT: [Normocephalic, atraumatic. Mucous membranes moist. No jaundice noted. Conjunctiva moist and clear, sclerae anicteric] Neck: No obvious JVD/HJR, no thyromegaly or lymphadenopathy noted. No carotid bruit appreciated Cardiac: [Regular rate and rhythm.] [No obvious murmur rub or gallop.] Lungs: [Rhonchi noted throughout. Intubated with symmetrical chest wall movements. Abdomen: Soft, bowel sounds normoactive. Nontender and nondistended. No abdominal bruit or thrill noted. No masses noted. Musculoskeletal: No fluid collection. Decreased range of motion is noted. Extremities: No clubbing, cyanosis noted. [Trace bilateral lower extremity edema noted.] Upper extremity pulses 2+. Lower extremity pulses 2+. Capillary refill less than 3 seconds. Skin: No unusual lesions or rashes. No skin breakdown appreciated. Neuro: Sedated, moving extremities when sedation with health. No essential tremor is appreciated. Result/EKG - Labs CBC & BMP: 11/27/16 03:40 11/27/16 03:40 Lab Results: I have reviewed the past 24 hour labs Labs: Laboratory Results - last 24 hr 11/26/16 11/26/16 11/26/16 11:19 14:27 15:28 WBC RBC Hgb Hct MCV MCH MCHC RDW Plt Count Neut % (Auto) Lymph % (Auto) [place] % (Auto) Eos % (Auto) Baso % (Auto) Neut # (Auto) Lymph # (Auto) [place] # (Auto) Eos # (Auto) Baso # (Auto) Total Counted Immature Gran % Nucleated RBC % Immature Gran # Segmented Neutrophils Band Neutrophils Lymphocytes Monocytes Eosinophils Nucleated RBCs Nucleated RBCs # Platelet Estimate Polychromasia Hypochromasia Poikilocytosis Anisocytosis Microcytosis Pappenheimer Bodies Ovalocytes Dmitriy Cells Morphology Comment ABG pH ABG pCO2 ABG pO2 ABG HCO3 ABG Total CO2 ABG O2 Saturation ABG Base Excess Sodium Potassium 3.5 Chloride Carbon Dioxide Anion Gap BUN Creatinine GFR Calculation BUN/Creatinine Ratio Glucose POC Glucose 232 H Calculated Osmolality Calcium Magnesium 1.8 Total Bilirubin Direct Bilirubin Indirect Bilirubin AST ALT Alkaline Phosphatase Total Protein Albumin 11/26/16 11/26/16 11/26/16 17:40 22:44 23:25 WBC RBC Hgb Hct MCV MCH MCHC RDW Plt Count Neut % (Auto) Lymph % (Auto) [place] % (Auto) Eos % (Auto) Baso % (Auto) Neut # (Auto) Lymph # (Auto) [place] # (Auto) Eos # (Auto) Baso # (Auto) Total Counted Immature Gran % Nucleated RBC % Immature Gran # Segmented Neutrophils Band Neutrophils Lymphocytes Monocytes Eosinophils Nucleated RBCs Nucleated RBCs # Platelet Estimate Polychromasia Hypochromasia Poikilocytosis Anisocytosis Microcytosis Pappenheimer Bodies Ovalocytes Dmitriy Cells Morphology Comment ABG pH ABG pCO2 ABG pO2 ABG HCO3 ABG Total CO2 ABG O2 Saturation ABG Base Excess Sodium Potassium 3.4 L Chloride Carbon Dioxide Anion Gap BUN Creatinine GFR Calculation BUN/Creatinine Ratio Glucose POC Glucose 175 H 182 H Calculated Osmolality Calcium Magnesium 2.0 Total Bilirubin Direct Bilirubin Indirect Bilirubin AST ALT Alkaline Phosphatase Total Protein Albumin 11/27/16 11/27/16 11/27/16 03:40 03:40 03:40 WBC 13.8 H RBC 4.32 Hgb 12.7 Hct 35.3 L MCV 81.7 L MCH 29 MCHC 36.0 RDW 19.4 H Plt Count 57 L Neut % (Auto) 91.8 H Lymph % (Auto) 4.8 L [place] % (Auto) 2.2 Eos % (Auto) 0.2 Baso % (Auto) 0.3 Neut # (Auto) 12.6 H Lymph # (Auto) 0.7 L [place] # (Auto) 0.3 Eos # (Auto) 0.0 Baso # (Auto) 0.0 Total Counted 100 Immature Gran % 0.7 Nucleated RBC % 3.8 Immature Gran # 0.10 Segmented Neutrophils 89 H Band Neutrophils 5 Lymphocytes 1 L Monocytes 4 Eosinophils 1 Nucleated RBCs 10 H Nucleated RBCs # 0.52 Platelet Estimate Decreased Polychromasia Slight Hypochromasia 1+ Poikilocytosis 1+ Anisocytosis 1+ Microcytosis 1+ Pappenheimer Bodies Few Ovalocytes Slight [place] Cells 1+ Morphology Comment ABG pH 7.325 L ABG pCO2 30.0 L ABG pO2 126.0 H ABG HCO3 17.1 L ABG Total CO2 13.9 L ABG O2 Saturation 98.7 ABG Base Excess -9.3 L Sodium 130 L Potassium 3.4 L Chloride 90 L Carbon Dioxide 19 L Anion Gap 24.4 H BUN 49 H Creatinine 3.00 H GFR Calculation 18 BUN/Creatinine Ratio 16.00 Glucose 176 H POC Glucose Calculated Osmolality 276.8 Calcium 7.5 L Magnesium 1.8 Total Bilirubin Direct Bilirubin Indirect Bilirubin AST ALT Alkaline Phosphatase Total Protein Albumin 11/27/16 11/27/16 03:40 05:54 WBC RBC Hgb Hct MCV MCH MCHC RDW Plt Count Neut % (Auto) Lymph % (Auto) [place] % (Auto) Eos % (Auto) Baso % (Auto) Neut # (Auto) Lymph # (Auto) [place] # (Auto) Eos # (Auto) Baso # (Auto) Total Counted Immature Gran % Nucleated RBC % Immature Gran # Segmented Neutrophils Band Neutrophils Lymphocytes Monocytes Eosinophils Nucleated RBCs Nucleated RBCs # Platelet Estimate Polychromasia Hypochromasia Poikilocytosis Anisocytosis Microcytosis Pappenheimer Bodies Ovalocytes Dmitriy Cells Morphology Comment ABG pH ABG pCO2 ABG pO2 ABG HCO3 ABG Total CO2 ABG O2 Saturation ABG Base Excess Sodium Potassium Chloride Carbon Dioxide Anion Gap BUN Creatinine GFR Calculation BUN/Creatinine Ratio Glucose POC Glucose 164 H Calculated Osmolality Calcium Magnesium Total Bilirubin 12.00 H* Direct Bilirubin 9.20 H Indirect Bilirubin 2.8 H AST 134 H ALT 203 H Alkaline Phosphatase 68 Total Protein 3.6 L Albumin 2.3 L - Diagnostic Findings Procedure: Chest x-ray: report reviewed by me - EKG EKG results: interpreted by me EKG shows: sinus rhythm (NSVT, frequent PVCs)
--- NOTE | 2016-11-27 10:25 | Pulmonology Progress Note ---
Pulmonary - PN: Subj Interval history: This is a 56-year-old white female whom I saw in pulmonary consultation on 2016. I was asked to treat her pulmonary status and manage mechanical ventilation. My impressions were. 1. Known heart disease with a past history of congestive heart failure and with acute congestive heart failure. Echocardiogram done 11/20/2016 showed left ventricular ejection fraction of 15% with global hypokinesis, moderate mitral regurgitation, mild to moderate tricuspid regurgitation. Aortic valve was normal. Pulmonary artery pressure was estimated to be 51 mmHg. I suspect that the pulmonary hypertension is related to the patient's mitral regurgitation. 2. History of cardiac arrhythmia requiring cardiac pacemaker 3. Acute cardiac arrest 4. Tobacco abuse 5. Toxicology. Positive opiates and cannabinoids. 6. Acute on chronic renal failure. 7. Severe hypotension with metabolic acidosis requiring pressor agents. 8. Abnormal liver function tests. 9. See above 10. Following my consultation was found that the patient was in mild liver failure. She had an INR greater than 20 with low fiber prevention. It is thought that we are dealing with disseminated intravascular coagulation. 11/22/2016. Today's chest x-ray shows cardiomegaly. There are increased interstitial markings which are compatible with very mild pulmonary edema. Endotracheal tube is in good position. INR is dropped to 8.0. ABGs on mechanical ventilation showed pH is 7.549. PCO2 is 26.4. PO2 is 198. Bicarb is 22.5. Potassium is low at 3.4. Sodium is 139. Creatinine is increased to 2.60 with a BUN of 38. AST is greater than 2000. ALT is 1538. Alkaline [place] is normal at 86. Total bilirubin is 4.50 with a direct bilirubin of 3.00 and indirect bilirubin 1.5. C-reactive protein is elevated at 3.36. Natruretic peptide is elevated at 3777. Protein and albumin are low at 4.3 and 2.4 respectively. Sedimentation rate is 1 which is what I would expect if fibrinogen is being consumed with a coagulopathy. There are no positive cultures. Patient remains on 2 pressor agents. She is also on antibiotics. She is not on steroids. Patient has been seen in cardiology consultation by Dr. Jose Aiken, renal consultation by Dr. Se Pulliam. 11/23/2016. Chest x-ray shows cardiomegaly. Left diaphragm is not visible. There are bilateral increased interstitial markings compatible with congestive heart failure. Endotracheal tube is near the fede. ABGs are noted and discussed with Dr. Se Pulliam. Adjustments have been made and mechanical ventilation and follow-up ABGs are pending. Potassium is low at 3.1 is being replaced. Creatinine is 2.90 with a BUN of 36. This patient continues to have an elevated lactic acid level at 3.5 she is on 2 pressor agents. Her calcium is low at 7.3 and albumin is low at 2.1 total proteins of 4.0. Natruretic peptide is gradually decreasing but remains elevated 1998. Total bilirubin is 4.90. Direct bilirubin is 3.20. AST and ALT are 2565 and 1152 respectively. Alkaline Viral is normal. Ammonia level is elevated at 53. White blood cell count is 14,300 with 85 segs. H&H is 12.2/35.2. Platelets have increased to 120,000 and INR is dropped to 3.3. This patient was tried on a T-tube for a few minutes but she could not tolerate it. We will continue weaning protocol with CPAP. Patient is has multi-organ disease and I suspect she will be very slow to wean from mechanical ventilation. 11/24/2016. Chest x-ray. Massive cardiomegaly. There are increased interstitial markings and alveolar filling bilaterally. This is improved a good bit with PEEP and pressure support. This patient has significant heart disease with a decreased ejection fraction and if it were not for PEEP and pressure support her congestive heart failure findings on chest x-ray would be much more prominent. With the addition of pressure support ABGs have improved significantly. On FiO2 100% pH is 7.47, P CO2 is 21 and PO2 is 316 with a bicarb of 19.2. Today I have decreased the FiO2. Creatinine is 3.20. BUN is 40. Electrolytes are normal. Ammonia level has dropped to 32. Total bilirubin is 6.00 with a direct of 4.1. Transaminases remain significantly elevated. White count is 13,300 with 78 segs. H&H 13.5/38.4. There are no positive cultures this patient has respiratory failure, congestive heart failure , severe heart disease, acute kidney failure. She also has acute liver failure and on the right lying cirrhosis of the liver. There is a very long history of alcohol abuse and apparently of drug abuse. 11/25/2016. Patient's family has made her DO NOT RESUSCITATE. Chest x-ray is stable revealing compensated congestive heart failure. ABGs are stable. Electrolytes are normal. Creatinine is 3.4 with a BUN of 46. White count is 12 ,200 with 78 segs. H&H is stable at 13.3/38.3. Ammonia level was elevated 42. Lactic acid is 10.1 on multiple pressor agents. Liver function tests are abnormal. Prognosis remains very poor. 11/26/2016. This patient is on Levophed and dobutamine for pressor agents. Adjustments were made in the ventilator yesterday to improve oxygenation. She requires an FiO2 of 70%. She is basically unarousable and cannot cooperate. Chest x-ray shows compensated pulmonary edema which is a little worse than it was yesterday. Endotracheal tube is at the distal trachea just above the fede. There is good aeration of both lungs. ABGs on mechanical ventilation FiO2 70% shows a pH 7.44, PCO2 27, PO2 of 85 and a bicarb of 20.7. Sodium is 133. Potassium is 2.9. Chloride is 90. Creatinine is 3.40 with a BUN of 59. Total bilirubin is 9.50 with direct bilirubin of 7.20. Transaminases remain elevated but have improved. Alkaline [place] is normal. White count is 13,781.5 segs H&H 12.0 33.4 and platelets are 67,000. There are no positive cultures. 11/27/2016. This 56-year-old white female has severe heart disease with ejection fraction of 15% or less. She is in pulmonary edema and is requiring 2 pressor agents in order to maintain her blood pressure. She is on mechanical ventilation. PEEP is impeding the progression of her congestive heart failure somewhat. Patient has cirrhosis of the liver with liver failure. She also has acute renal failure. She has underlying COPD. She is mainly unarousable and does not respond to pain. ABGs on mechanical ventilation show a pH of 7.325, PCO2 30, PO2 126 and a bicarb of 17. Sodium is 130, potassium is 3.4, chloride is 90, creatinine is 3.0 and BUN is 43. White count is 13,892% segs. H&H 12.7/ 35.3. Platelets have dropped to 57,000. This patient is a DO NOT RESUSCITATE. Her prognosis is very poor. Labs been reviewed. Medicines been reviewed. Doppler venograms of the lower extremities done 11/21/2016 showed no evidence of deep venous thrombophlebitis Ultrasound of the abdomen done 11/20/2016. Gallbladder sludge and/or micro- stones. No evidence of acute cholecystitis. Minimal left perinephric fluid of uncertain significance. No hydronephrosis. Patient's on the weaning protocol. She does not tolerate T-tube. Physical exam. Vital signs. See below. Blood pressure requires 2 pressor agents. Chest. Rales. Heart. Far lateral PMI Abdomen. Only rare bowel sounds. Lower extremities. Skin changes of chronic venous stasis. Psychiatric. Impossible to discern. Neurological. Impossible to discern. Neck. No meningismus. Lymphatics. No submandibular cervical supraclavicular adenopathy. Plan. 11/21/2016. #1 repeat ABGs. 2. We will make ventilator adjustments. Patient will be put on the weaning protocol and physical therapy protocol. 3. Proton pump inhibitors 4. Follow-up chest x-ray and ABGs 5. Ammonia level 6. Thyroid function tests. 6. Doppler venograms of the lower extremities 7. Echocardiogram 8. Cardiology consultation 11/22/2016. 1. Weaning protocol. 2. Physical therapy protocol. 3. Daily chest x-ray and ABGs. 4. Daily lab. 11/23/2016. 1. See today's note above 11/24/2016. 1. See today's note above. 2. Continue mechanical ventilation. Cardiac status will have to improve a good bit before we can do a whole lot in the way of weaning. 11/25/2016. 1. See today's note above. See my note 11/24/2016 11/26/2016. 1. See my note above from today. 2. From a pulmonary standpoint we can continue to support support the patient. We will keep trying weaning protocol but this does not look hopeful. Physical therapy protocol been ordered earlier during the patient's hospitalization. With multi-organ system failure prognosis is very poor. Family has made the patient a DO NOT RESUSCITATE. 11/27/2016. 1. See today's note above. 2. We will continue to try to use the weaning protocol. Mechanical ventilation and PEEP is partially preventing progression of congestive heart failure. Exam (Progress Note) - Constitutional Vitals: Period Temp Pulse Resp BP Sys/Morse Pulse Ox Last 24 Hr 96.3 F-97.7 F 84-89 12-85 84-111/51-87 94-99 Results - Labs CBC & BMP: 11/27/16 03:40 11/27/16 03:40
--- NOTE | 2016-11-27 10:38 | Gastrointestinal Progress Note ---
<GuillerminaAntonella Guerrero - Last Filed: 11/27/16 10:36> Assessment and Plan (1) GI bleed Status: Acute Assessment and plan: 11/27-no overt bleeding reported. No changes at present time. Bilirubin continues to trend upward with transaminases trending downward. Platelet count down slightly. Plan an addendum to followed by Dr. Gaona. 11/26-no changes at present time. Remains on pressure support. No GI bleeding with bowel movement today. Bilirubin elevated however LFTs trending downward. Plan an addendum to follow by Dr. Gaona. 11/25-no overt bleeding. Continues on pressor support. Plan an addendum to follow by Dr. Gaona. 11/24-no changes at present time. Continues on pressor support. Runs of V. tach noted at present time. DNR. Plan an addendum to follow by Dr. Gaona. 11/23-No further hemetemsis with stable H/H. Continues on Dobutamine and Levophed. INR improved at 3.3. Continue to monitor for further bleeding. Plan and addendum to follow by Dr Gaona. Current Visit: Yes Gastroenterology - PN: Subj Interval history: CC: GI bleed Patient is seen, sedated and remains on the ventilator. Nursing staff states that she has become a little more arousable however does not following any commands. She is noted to open her eyes briefly during exam and move around in the bed. She continues with adequate urine output at this time. Creatinine is noted at 3. Bilirubin is up today at 12 with transaminases trending downward. No repeat INR today. Platelets are down slightly at 57. No reports of overt bleeding at this time. She continues on pressor support 2. Abdomen is soft, nontender. ROS: No acute distress at present time. Exam (Progress Note) - Constitutional Vitals: Period Temp Pulse Resp BP Sys/Morse Pulse Ox Last 24 Hr 96.3 F-97.7 F 84-89 12-85 84-111/51-87 94-99 General appearance: normal weight, no acute distress - Head Head exam: Present: normal inspection, normocephalic - Eye Eye exam: Present: scleral icterus, other (Lids and conjunctive are unremarkable ) - ENT ENT exam: Present: normal exam, normal oropharynx - Neck Neck exam: Present: normal inspection - Respiratory Respiratory exam: Present: clear to auscultation bilaterally. Absent: rales, rhonchi, wheezes - Cardiovascular Cardiovascular exam: Present: regular rate and rhythm. Absent: diastolic murmur , JVD, systolic murmur - GI/Abdominal GI/Abdominal exam: Present: normal bowel sounds, soft. Absent: ascites, distended, mass, organomegaly - Extremities Exam Extremities exam: Present: normal inspection - Back Exam Back exam: Present: normal inspection - Neurological Exam Neurological exam: Present: altered - Psychiatric Psychiatric exam: Present: other - Skin Skin exam: Present: normal color, warm, dry Results - Labs CBC & BMP: 11/27/16 03:40 11/27/16 03:40 Lab Results: I have reviewed the past 24 hour labs <Adin Gaona - Last Filed: 11/27/16 10:52> Exam (Progress Note) - Constitutional Vitals: Period Temp Pulse Resp BP Sys/Morse Pulse Ox Last 24 Hr 96.3 F-97.7 F 84-89 12-85 84-111/51-87 94-99 Results - Labs CBC & BMP: 11/27/16 03:40 11/27/16 03:40
--- NOTE | 2016-11-27 12:05 | Hospitalist Progress Note ---
Assessment and Plan - Time spent with patient Time spent with patient: Greater than 30 minutes (1) Cardiorespiratory failure Status: Acute Assessment and plan: Continue current vent support. Continue sedation. Poor prognosis. [employer] f/u. Remain in ICU today. Current Visit: Yes (2) Hypokalemia Status: Acute Assessment and plan: Replenish KCl cautiously as Cr is 3.4 today. Current Visit: Yes (3) Polysubstance abuse Status: Acute Assessment and plan: Continue current supportive care Current Visit: Yes (4) Elevated LFTs Problem details: Per GI service. Status: Acute Assessment and plan: Contine current supportive care Current Visit: Yes (5) NADIA (acute kidney injury) Problem details: No acute indication for renal replacement therapy. Status: Acute Assessment and plan: IVF. Monitor Cr level. Nephrology f/u. Current Visit: Yes (6) Pacemaker Status: Chronic Current Visit: Yes (7) Cardiomyopathy Status: Chronic Assessment and plan: Chronic, EF 15%. Poor prognosis Current Visit: Yes (8) Coagulopathy Status: Acute Assessment and plan: Improving. Current Visit: Yes Hospitalist: Subjective Interval history: 11/27/16:No overnight acute event. On Vent. On Propofol sedation. Decreased UOP. Leukocytosis remains. Cr 3.0 today same as yesterday. Bilirubin up but transaminases trending down. No fever, vomiting or hematuria reported per nurse staff. 11/26/16: On Vent. On Propofol sedation at 5mcg. Decreased UOP. LFP improving. Leukocytosis remains. Cr 3.4 today. No fever, vomiting or hematuria reported per nurse staff. Interval history: Patient was admitted on the with acute metabolic acidosis with associated encephalopathy of unclear etiology. Also with multisystem organ failure likely as a result of profound hypotension. She has a diagnosis of CHF with a reduced EF at 15% (systolic dysfunction). BNP >5000. Additionally, she currently has liver function c/w shock liver (AST/ALT decreasing but T. Bili elevated) and worsening renal failure (not requiring HD but with decreasing UOP) . An underlying etiology has not been isolated. Sepsis, polysubstance and exacerbation of CHF all in the differential. Exam - Constitutional Vitals: Period Temp Pulse Resp BP Sys/Morse Pulse Ox Last 24 Hr 96.5 F-97.7 F 84-89 12-85 80-111/45-87 94-99 Exam: GENERAL: On vent and sedated. HEENT: Pupils equally round and reactive to light, Normal lips, teeth and gums. ET tube in place. NECK: Supple without mass. HEART: RRR, no murmur. CHEST: Normal shape, fair air movement, no retractions. CV: RRR, no murmurs, 2+ peripheral pulses LUNGS: Decreased breath sound at b/l lower lobes. ABDOMEN: Soft, ND SKIN: No rash or edema. LYMPH: No anterior or posterior cervical, or supraclavicular lymphadenopathy. NEURO: On vent and sedated Results - Labs CBC & BMP: 11/27/16 03:40 11/27/16 03:40
[2016-11-27 14:55] LABS: Magnesium 2.1 MG/DL (1.8-2.4); Potassium 3.3 MMOL/L (3.5-5.1)
[2016-11-27] MEDS: PROPOFOL 1,000 MG/100 ML BOTTLE IV SCH (18:38)
[2016-11-28] MEDS: DOBUTamine 500 MG/250 ML PREMIX IV SCH ×4 (00:26→06:37)
[2016-11-28] MEDS: MEROPENEM 500 MG in SODIUM CHLORIDE 0.9% 100 ML IV SCH (04:39)
[2016-11-28] MEDS: SODIUM BICARB INJ 50 MEQ in DEXTROSE 5% 1,000 ML IV SCH ×2 (04:59→12:53)
[2016-11-28] MEDS ORDERED: HYDROCORTISONE 100 MG VIAL IV SCH (05:00)
[2016-11-28 06:27] LABS: Basophils % 0.2 % (0.0-0.8); Eosinophils # 0.1 10*3/uL (0.0-0.87); Eosinophils % 0.6 % (0.00-10.9); Hematocrit 33.9 VOL% (35.7-47.0); Hemoglobin 12.3 GM/DL (12.0-16.0); Immature Granulocytes % 0.6 %; Lymphocytes # 0.4 10*3/uL (1.4-4.0); Lymphocytes % 2.5 % (21.3-54.2); Mean Corpuscular HGB Conc 36.3 GM/DL (32-36); Mean Corpuscular Hemoglobin 30 PG (27-34); Mean Corpuscular Volume 81.3 FL (87-102); Monocytes # 0.2 10*3/uL (0.11-0.8); Monocytes % 1.3 % (1.7-12.7); NRBC # 0.37 10*3/uL; Neutrophils # 15.9 10*3/uL (1.4-7.4); Neutrophils % 94.8 % (38.7-73.9); Red Blood Count 4.17 MC/CUMM (3.8-5.5); Red Cell Distribution Width 19.5 % (9.3-17.3); White Blood Count 16.7 T/CUMM (4-12)
[2016-11-28 06:36] LABS: Platelet Count 35 T/CUMM (130-400)
[2016-11-28] MEDS: NOREPINEPHRINE 16 MG in SODIUM CHLORIDE 0.9% 234 ML IV SCH (06:40)
--- NOTE | 2016-11-28 06:57 | Pulmonology Progress Note ---
Pulmonary - PN: Subj Interval history: This 56-year-old lady has a history of drug abuse and alcoholism and has altered mental status. She has a very low ejection fraction 15% and congestive heart failure. ABGs have been okay. Chest x-ray still looks wet. Platelet count down to 35,000 probably due to hypersplenism related to cirrhosis. Continuing on pressure agents. Systolic blood pressure in the 70s. Continue mechanical ventilatory support. Exam (Progress Note) - Constitutional Vitals: Period Temp Pulse Resp BP Sys/Morse Pulse Ox Last 24 Hr 96.7 F-97.6 F 87-102 12-21 65-103/42-69 92-99 Exam: Patient is unresponsive. Vital signs abnormal with systolic pressure in the mid 70s. Pupils react to light. She has jaundice. Orotracheal tube in place. Neck is supple. Chest reveals some expiratory wheezes. Heart rapid rate normal rhythm. Abdomen soft bowel sounds. No masses. Extremities no clubbing cyanosis trace of edema. Results - Labs CBC & BMP: 11/28/16 06:11 11/27/16 21:10 Lab Results: I have reviewed the past 24 hour labs - Diagnostic Findings Procedure: Chest x-ray: image reviewed by me (ET tube in good position. Bilateral pulmonary edema.) Assessment and Plan (1) Hepatic cirrhosis Status: Acute Assessment and plan: Causes fluid retention and she has hypersplenism with thrombocytopenia. Not actively bleeding. Current Visit: Yes (2) Pulmonary edema Status: Acute Assessment and plan: Needs to diurese but she is hypotensive. Current Visit: Yes (3) Polysubstance abuse Status: Acute Assessment and plan: Patient currently sedated. Current Visit: Yes (4) Cardiorespiratory failure Status: Acute Assessment and plan: ABGs pending. Can't try to wean as yet. Current Visit: Yes (5) Cardiomyopathy Status: Chronic Assessment and plan: Severe cardiomyopathy with ejection fraction 15%. Poor prognosis from this alone. Current Visit: Yes
[2016-11-28] MEDS ORDERED: FUROSEMIDE 40 MG/4 ML VIAL IV ONE (06:58)
[2016-11-28 07:10] LABS: Calcium 7.4 MG/DL (8.5-10.1); Osmolality,Calculated 267.2 MOS/KG (273-304); Potassium 3.5 MMOL/L (3.5-5.1)
[2016-11-28 07:27] LABS: Band Neutrophils 22 % (0-10); Segmented Neutrophils 78 % (50-85); Total Cells Counted 100
[2016-11-28 07:33] LABS: Burr Cells 2+; Hypochromasia Slight; Macrocytosis Slight; Pappenheimer Bodies Few; Polychromasia Slight
[2016-11-28 07:34] LABS: Platelet Estimate Decreased
[2016-11-28 08:10] LABS: ABG Base Excess -4.7 MMOL/L (-2.5-2.5); ABG HCO3 18.3 MMOL/L (20-26); ABG Oxygen Saturation 97.1 % (95-100); ABG PH 7.433 (7.35-7.45); ABG PO2 91.5 MM HG (80-95); ABG TCO2 19.2 MMOL/L (23-27); Allen Test Positive; Pt O2 Delivery Device Ventilator
--- NOTE | 2016-11-28 08:39 | Cardiology Progress Note ---
Assessment and Plan - Time spent with patient Time spent with patient: Greater than 30 minutes (1) Cardiomyopathy Status: Chronic Assessment and plan: SEE PLAN OF CARE LISTED BELOW Current Visit: Yes (2) Cardiorespiratory failure Status: Acute Assessment and plan: SEE PLAN OF CARE LISTED BELOW Current Visit: Yes (3) Coagulopathy Status: Acute Assessment and plan: SEE PLAN OF CARE LISTED BELOW Current Visit: Yes (4) GI bleed Status: Acute Assessment and plan: SEE PLAN OF CARE LISTED BELOW Current Visit: Yes (5) Metabolic acidosis Status: Acute Assessment and plan: SEE PLAN OF CARE LISTED BELOW Current Visit: Yes (6) Pacemaker Status: Chronic Assessment and plan: SEE PLAN OF CARE LISTED BELOW Current Visit: Yes (7) Polysubstance abuse Status: Acute Assessment and plan: SEE PLAN OF CARE LISTED BELOW Current Visit: Yes Cardiology - PN: Subj Interval history: DIRECTOR [employer]ARMAC[facility]: DR. SHARP SUMMARY: Ms. Hall, 56WF, has a long-standing history of cardiomyopathy, status post pacemaker implantation followed by Dr. Sharp in [place]. History of polysubstance abuse including cannabinoids, opiates and benzodiazepines. Patient was admitted to the ICU of [facility] with mental status changes and confusion. The evening of admission, patient coded but did not lose her heart rhythm though she did lose her pulse transiently. This responded to vasopressors. She has been housed in our ICU requiring Dobutamine and Levophed. She is currently also on IV sodium bicarbonate to treat her metabolic acidosis of unknown etiology. Liver function tests remain abnormal ( suspected to be related to hypotension). Cardiac enzyme panel is not consistent with acute coronary syndrome. Echocardiogram reveals EF 15% with global hypokinesis, moderate mitral regurgitation. PAP 51 mmHg. Eliquis has been held since November 21, 2016 due to possible GI bleed and coagulopathy (INR greater than 20). NOVEMBER 23, 2016: Patient is being treated for sepsis. Her metabolic acidosis is slowly improving. Continues to require mechanical ventilation due to cardiorespiratory failure. Still requiring vasopressors. Her prognosis is poor. She is hypokalemic. We will continue to follow her labs closely daily. I will ask that telemetry monitoring be recorded and scanned in in order to assess her rhythm. NOVEMBER 24, 2016: Increased FiO2 requirement noted overnight. She is unresponsive to verbal or tactile stimuli. She is currently requiring IV Levophed, Dopamine and Dobutamine. She is having intermittent runs of NSVT. This is not unexpected given the severity of her illness. Magnesium is 1.7 and we will replace, monitoring closely. Unfortunately, she is in shock liver failure and Amiodarone is not an option. Hypotension prevents use of acacia blocking agents. Prognosis is poor. She is now DNR. Will discuss with Dr. Lemus and await additional recommendations. NOVEMBER 25, 2016: Overnight, patient is off Dopamine. Frequency of NSVT seems to have improved. Continues to require Levophed and Dobutamine. She is now a DNR with multiorgan failure. Creatinine continues to worsen. Continue aggressive care. Little to add from a cardiac standpoint. NOVEMBER 26, 2016: Ms. Hall remains critically ill. There is been no improvement. She still requiring vasopressors. She is hypomagnesemic and will place her on magnesium protocol. Poor prognosis. NOVEMBER 27, 2016: Patient continues requiring pressors. Continues to require Dobutamine, Levophed. Neurologically, no improvement. She is having frequent unifocal PVCs this morning. Again, she has hypokalemic and this will be addressed. Unfortunately, total bilirubin is now 12.0, she is more jaundiced. Prognosis grim. DNR. NOVEMBER 28, 2016: Patient remains critically ill with no improvement overnight. DNR. She is still hypotensive requiring Dobutamine and Levophed with systolic blood pressure in the 80s - 90s. Platelet count has trended down to 35. At this point, there is not much to add from a cardiology standpoint. Will further discuss with Dr. singh and await additional recommendations. ASSESSMENT/PLAN: 1. CARDIOPULMONARY ARREST - currently requiring mechanical ventilation and vasopressor support. Poor prognosis. 2. POLYSUBSTANCE ABUSE - continue current plan of care 3. CARDIOMYOPATHY - EF 15%. Etiology unknown, duration unknown. 4. METABOLIC ACIDOSIS - continue current plan of care. 5. ACUTE RENAL FAILURE - stage IV. Unknown if this acute on chronic. 6. SUSPECTED SEPSIS - uncertain at this time. Continue current plan of care 7. COAGULOPATHY - little improvement. Platelets dangerously low. Holding Eliquis 8. S/P PACEMAKER - followed by Dr. Sharp in [place], [place] 9. NSVT - replacing magnesium per protocol. Not a candidate for acacia blocking agents (hypotension) or Amiodorone (liver failure) 10. DNR - continue current plan of care Exam (Progress Note) - Constitutional Vitals: Period Temp Pulse Resp BP Sys/Morse Pulse Ox Last 24 Hr 96.7 F-97.6 F 87-102 12-21 65-103/42-69 92-100 Exam: General: [Appears ill. ] [Appears comfortable.] HEENT: [Normocephalic, atraumatic. Mucous membranes moist. No jaundice noted. Conjunctiva moist and clear, sclerae anicteric] Neck: No obvious JVD/HJR, no thyromegaly or lymphadenopathy noted. No carotid bruit appreciated Cardiac: [Regular rate and rhythm.] [No obvious murmur rub or gallop.] Lungs: [Rhonchi noted throughout. Intubated with symmetrical chest wall movements. Abdomen: Soft, bowel sounds normoactive. Nontender and nondistended. No abdominal bruit or thrill noted. No masses noted. Musculoskeletal: No fluid collection. Decreased range of motion is noted. Extremities: No clubbing, cyanosis noted. [Trace bilateral lower extremity edema noted.] Upper extremity pulses 2+. Lower extremity pulses 2+. Capillary refill less than 3 seconds. Skin: No unusual lesions or rashes. No skin breakdown appreciated. Neuro: Sedated, moving extremities when sedation with health. No essential tremor is appreciated. Result/EKG - Labs CBC & BMP: 11/28/16 06:11 11/28/16 06:11 Lab Results: I have reviewed the past 24 hour labs Labs: Laboratory Results - last 24 hr 11/27/16 11/27/16 11/27/16 03:40 11:43 14:10 WBC RBC Hgb Hct MCV MCH MCHC RDW Plt Count Neut % (Auto) Lymph % (Auto) Lee % (Auto) Eos % (Auto) Baso % (Auto) Neut # (Auto) Lymph # (Auto) Lee # (Auto) Eos # (Auto) Baso # (Auto) Total Counted Immature Gran % Nucleated RBC % Immature Gran # Segmented Neutrophils Band Neutrophils Nucleated RBCs # Platelet Estimate Polychromasia Hypochromasia Macrocytosis Pappenheimer Bodies [place] Cells ABG pH ABG pCO2 ABG pO2 ABG HCO3 ABG Total CO2 ABG O2 Saturation ABG Base Excess FiO2 Sodium Potassium 3.3 L Chloride Carbon Dioxide Anion Gap BUN Creatinine GFR Calculation BUN/Creatinine Ratio Glucose POC Glucose 162 H Calculated Osmolality Calcium Magnesium 2.1 Total Bilirubin 12.00 H* Direct Bilirubin 9.20 H Indirect Bilirubin 2.8 H AST 134 H ALT 203 H Alkaline Phosphatase 68 Total Protein 3.6 L Albumin 2.3 L Random Cortisol 11/27/16 11/27/16 11/27/16 18:26 21:10 23:24 WBC RBC Hgb Hct MCV MCH MCHC RDW Plt Count Neut % (Auto) Lymph % (Auto) Lee % (Auto) Eos % (Auto) Baso % (Auto) Neut # (Auto) Lymph # (Auto) Lee # (Auto) Eos # (Auto) Baso # (Auto) Total Counted Immature Gran % Nucleated RBC % Immature Gran # Segmented Neutrophils Band Neutrophils Nucleated RBCs # Platelet Estimate Polychromasia Hypochromasia Macrocytosis Pappenheimer Bodies Dmitriy Cells ABG pH ABG pCO2 ABG pO2 ABG HCO3 ABG Total CO2 ABG O2 Saturation ABG Base Excess FiO2 Sodium Potassium 3.6 Chloride Carbon Dioxide Anion Gap BUN Creatinine GFR Calculation BUN/Creatinine Ratio Glucose POC Glucose 165 H 152 H Calculated Osmolality Calcium Magnesium Total Bilirubin Direct Bilirubin Indirect Bilirubin AST ALT Alkaline Phosphatase Total Protein Albumin Random Cortisol 11/28/16 11/28/16 11/28/16 06:11 06:11 06:11 WBC 16.7 H RBC 4.17 Hgb 12.3 Hct 33.9 L MCV 81.3 L MCH 30 MCHC 36.3 H RDW 19.5 H Plt Count 35 L* D Neut % (Auto) 94.8 H Lymph % (Auto) 2.5 L Lee % (Auto) 1.3 L Eos % (Auto) 0.6 Baso % (Auto) 0.2 Neut # (Auto) 15.9 H Lymph # (Auto) 0.4 L Lee # (Auto) 0.2 Eos # (Auto) 0.1 Baso # (Auto) 0.0 Total Counted 100 Immature Gran % 0.6 Nucleated RBC % 2.2 Immature Gran # 0.10 Segmented Neutrophils 78 Band Neutrophils 22 H Nucleated RBCs # 0.37 Platelet Estimate Decreased Polychromasia Slight Hypochromasia Slight Macrocytosis Slight Pappenheimer Bodies Few Dmitriy Cells 2+ ABG pH ABG pCO2 ABG pO2 ABG HCO3 ABG Total CO2 ABG O2 Saturation ABG Base Excess FiO2 Sodium 127 L Potassium 3.5 Chloride 86 L Carbon Dioxide 21 Anion Gap 23.5 H BUN 43 H Creatinine 2.50 H GFR Calculation 23 BUN/Creatinine Ratio 17.00 Glucose 130 H POC Glucose Calculated Osmolality 267.2 L Calcium 7.4 L Magnesium 2.0 Total Bilirubin Direct Bilirubin Indirect Bilirubin AST ALT Alkaline Phosphatase Total Protein Albumin Random Cortisol 45.0 11/28/16 07:58 WBC RBC Hgb Hct MCV MCH MCHC RDW Plt Count Neut % (Auto) Lymph % (Auto) Lee % (Auto) Eos % (Auto) Baso % (Auto) Neut # (Auto) Lymph # (Auto) Lee # (Auto) Eos # (Auto) Baso # (Auto) Total Counted Immature Gran % Nucleated RBC % Immature Gran # Segmented Neutrophils Band Neutrophils Nucleated RBCs # Platelet Estimate Polychromasia Hypochromasia Macrocytosis Pappenheimer Bodies Dmitriy Cells ABG pH 7.433 ABG pCO2 28.0 L ABG pO2 91.5 ABG HCO3 18.3 L ABG Total CO2 19.2 L ABG O2 Saturation 97.1 ABG Base Excess -4.7 L FiO2 70.00 Sodium Potassium Chloride Carbon Dioxide Anion Gap BUN Creatinine GFR Calculation BUN/Creatinine Ratio Glucose POC Glucose Calculated Osmolality Calcium Magnesium Total Bilirubin Direct Bilirubin Indirect Bilirubin AST ALT Alkaline Phosphatase Total Protein Albumin Random Cortisol - Diagnostic Findings Procedure: Chest x-ray: report reviewed by me - EKG EKG results: interpreted by me EKG shows: sinus rhythm, atrial fibrillation
[2016-11-28] MEDS: VENLAFAXINE 75 MG TABLET PO SCH (08:49)
[2016-11-28] MEDS: PANTOPRAZOLE 40 MG VIAL IV SCH (08:50)
[2016-11-28] MEDS: ASCORBIC ACID 500 MG TABLET PO SCH (08:50)
--- NOTE | 2016-11-28 09:15 | XRay Report ---
History ventilator management Comparison 11/27/2016 The heart is enlarged. ET tube tip remains at T5. NG tube traversed the chest with a pacemaker present There are moderate to severe diffuse bilateral pulmonary opacities similar on the prior study, however there has been mild improvement of prior more focal consolidation in the left lower lobe with improved visualization of the left diaphragm Impression: No significant change in diffuse bilateral pulmonary opacities with improvement of prior more focal left lower lobe consolidation PROCEDURE INTERPRETED AT [facility] DEPARTMENT OF RADIOLOGY Final Report Signed by: Dr. Jennifer Vasquez
[2016-11-28] MEDS ORDERED: LORazepam 2 MG/1 ML VIAL IV PRN (10:17)
[2016-11-28] MEDS ORDERED: MORPHINE 2 MG/1 ML SYRINGE IV SCH (10:30)
[2016-11-28 12:05] VITALS: BP 80/53
--- NOTE | 2016-11-28 12:23 | Nephrology Progress Note ---
Nephrology - PN: Subj Interval history: Patient is intubated and sedate. Physical exam general patient is chronically ill-appearing, heart is regular rate and rhythm, she has 1+ pretibial edema, lungs are clear to auscultation anteriorly, abdomen is soft with decreased bowel sounds Assessment/plan 1. Liver failure-this patient apparently has end-stage liver disease, she is being converted to comfort care only, it sounds like the family plans on withdrawing support today per the nurse 2. Acute renal failure-patient's urine output is increased from yesterday, her creatinine is slightly improved as well 3. Hyponatremia 4. Anemia-patient's hematocrit around 34% Exam (PN)-Nephrology - Vital Signs Vital signs: Period Temp Pulse Resp BP Sys/Morse Pulse Ox Last 24 Hr 96.7 F-97.6 F 87-102 12-21 65-103/42-71 92-100 - Lab 11/28/16 06:11 11/28/16 06:11 Most recent lab results ABG pH 7.433 (7.35-7.45) 11/28/16 07:58 ABG pCO2 28.0 MM HG (35-48) L 11/28/16 07:58 ABG pO2 91.5 MM HG (80-95) 11/28/16 07:58 ABG HCO3 18.3 MMOL/L (20-26) L 11/28/16 07:58 ABG O2 Saturation 97.1 % (95-100) 11/28/16 07:58 Calcium 7.4 MG/DL (8.5-10.1) L 11/28/16 06:11 Phosphorus 2.9 MG/DL (2.5-4.9) 11/22/16 04:59 Magnesium 2.0 MG/DL (1.8-2.4) 11/28/16 06:11
[2016-11-28] MEDS: PROPOFOL 1,000 MG/100 ML BOTTLE IV SCH (12:51)
[2016-11-28] MEDS ORDERED: MORPHINE 2 MG/1 ML SYRINGE IV PRN (12:53)
[2016-11-28] MEDS: LORazepam 2 MG/1 ML VIAL IV PRN (12:54)
--- NOTE | 2016-11-28 14:03 | Discharge Summary ---
Hospital Course - Hospital Course Hospital Course: 11/28/16: Pt's family members request withdraw care and only do comfort measures. Pt was then extubated. Pt today. 11/27/16:No overnight acute event. On Vent. On Propofol sedation. Decreased UOP. Leukocytosis remains. Cr 3.0 today same as yesterday. Bilirubin up but transaminases trending down. No fever, vomiting or hematuria reported per staff command and control officer. 11/26/16: On Vent. On Propofol sedation at 5mcg. Decreased UOP. LFP improving. Leukocytosis remains. Cr 3.4 today. No fever, vomiting or hematuria reported per staff command and control officer. Interval history: Patient was admitted on the with acute metabolic acidosis with associated encephalopathy of unclear etiology. Also with multisystem organ failure likely as a result of profound hypotension. She has a diagnosis of CHF with a reduced EF at 15% (systolic dysfunction). BNP >5000. Additionally, she currently has liver function c/w shock liver (AST/ALT decreasing but T. Bili elevated) and worsening renal failure (not requiring HD but with decreasing UOP) . An underlying etiology has not been isolated. Sepsis, polysubstance and exacerbation of CHF all in the differential. Pt prognosis is poor and code status is DNR. - Time spent with patient Time with patient DS: Greater than 30 minutes - Cause of Cause of : Sepsis and respiratory failure Diagnosis - Discharge Diagnosis (1) Cardiorespiratory failure Status: Acute (2) Hypokalemia Status: Acute (3) Polysubstance abuse Status: Acute (4) Elevated LFTs Status: Acute (5) NADIA (acute kidney injury) Status: Acute (6) Pacemaker Status: Chronic (7) Cardiomyopathy Status: Chronic (8) Coagulopathy Status: Acute Discharge Plan - Discharge Data Disposition: - Discharge Medications No Action Furosemide Tab [Lasix Tab] 20 mg PO BID DIURETIC #14 tablet Hydrocodone/Acetaminophen [Hydrocodon-Acetaminophn 10-325] 1 tablet PO BID Venlafaxine [Effexor] 225 mg PO DAILY Quinapril HCl 40 mg PO DAILY Quetiapine Fumarate [Quetiapine Fumarate] 300 mg PO BEDTIME Carvedilol [Carvedilol] 25 mg PO BID Apixaban [Eliquis] 5 mg PO BID - Follow Up or Referral - Forms/Instructions Exam - Constitutional Vitals: Period Temp Pulse Resp BP Sys/Morse Pulse Ox Last 24 Hr 96.7 F-97.6 F 87-102 12-22 65-103/42-71 92-100 Discharge Results Procedures and tests throughout hospitalization: Pending Orders 11/29/16 04:00 XR chest 1V portable IN AM XR chest 1V portable IN AM ABG [Arterial Blood Gas] IN AM BMP w/ Mg [Basic Metabolic Panel w/Mg] IN AM CBC [Comp Blood Count Auto Diff] IN AM 11/30/16 04:00 XR chest 1V portable IN AM XR chest 1V portable IN AM ABG [Arterial Blood Gas] IN AM BMP w/ Mg [Basic Metabolic Panel w/Mg] IN AM CBC [Comp Blood Count Auto Diff] IN AM Labs on day of discharge: Labs from last 24 hours 11/28/16 11/28/16 11/28/16 07:58 06:11 06:11 WBC RBC Hgb Hct MCV MCH MCHC RDW Plt Count Neut % (Auto) Lymph % (Auto) Todd % (Auto) Eos % (Auto) Baso % (Auto) Neut # (Auto) Lymph # (Auto) Todd # (Auto) Eos # (Auto) Baso # (Auto) Total Counted Immature Gran % Nucleated RBC % Immature Gran # Segmented Neutrophils Band Neutrophils Nucleated RBCs # Platelet Estimate Polychromasia Hypochromasia Macrocytosis Pappenheimer Bodies Newton Cells ABG pH 7.433 ABG pCO2 28.0 L ABG pO2 91.5 ABG HCO3 18.3 L ABG Total CO2 19.2 L ABG O2 Saturation 97.1 ABG Base Excess -4.7 L FiO2 70.00 Sodium 127 L Potassium 3.5 Chloride 86 L Carbon Dioxide 21 Anion Gap 23.5 H BUN 43 H Creatinine 2.50 H GFR Calculation 23 BUN/Creatinine Ratio 17.00 Glucose 130 H POC Glucose Calculated Osmolality 267.2 L Calcium 7.4 L Magnesium 2.0 Random Cortisol 45.0 11/28/16 11/27/16 11/27/16 06:11 23:24 21:10 WBC 16.7 H RBC 4.17 Hgb 12.3 Hct 33.9 L MCV 81.3 L MCH 30 MCHC 36.3 H RDW 19.5 H Plt Count 35 L* D Neut % (Auto) 94.8 H Lymph % (Auto) 2.5 L Todd % (Auto) 1.3 L Eos % (Auto) 0.6 Baso % (Auto) 0.2 Neut # (Auto) 15.9 H Lymph # (Auto) 0.4 L Todd # (Auto) 0.2 Eos # (Auto) 0.1 Baso # (Auto) 0.0 Total Counted 100 Immature Gran % 0.6 Nucleated RBC % 2.2 Immature Gran # 0.10 Segmented Neutrophils 78 Band Neutrophils 22 H Nucleated RBCs # 0.37 Platelet Estimate Decreased Polychromasia Slight Hypochromasia Slight Macrocytosis Slight Pappenheimer Bodies Few Newton Cells 2+ ABG pH ABG pCO2 ABG pO2 ABG HCO3 ABG Total CO2 ABG O2 Saturation ABG Base Excess FiO2 Sodium Potassium 3.6 Chloride Carbon Dioxide Anion Gap BUN Creatinine GFR Calculation BUN/Creatinine Ratio Glucose POC Glucose 152 H Calculated Osmolality Calcium Magnesium Random Cortisol 11/27/16 11/27/16 18:26 14:10 WBC RBC Hgb Hct MCV MCH MCHC RDW Plt Count Neut % (Auto) Lymph % (Auto) Todd % (Auto) Eos % (Auto) Baso % (Auto) Neut # (Auto) Lymph # (Auto) Todd # (Auto) Eos # (Auto) Baso # (Auto) Total Counted Immature Gran % Nucleated RBC % Immature Gran # Segmented Neutrophils Band Neutrophils Nucleated RBCs # Platelet Estimate Polychromasia Hypochromasia Macrocytosis Pappenheimer Bodies Dmitriy Cells ABG pH ABG pCO2 ABG pO2 ABG HCO3 ABG Total CO2 ABG O2 Saturation ABG Base Excess FiO2 Sodium Potassium 3.3 L Chloride Carbon Dioxide Anion Gap BUN Creatinine GFR Calculation BUN/Creatinine Ratio Glucose POC Glucose 165 H Calculated Osmolality Calcium Magnesium 2.1 Random Cortisol DS: Provider Date of admission: 11/20/16 13:32 Primary care physician: . No PCP Attending physician on admission: Faraz Villarreal MD Consults: 11/20/16 15:10 Consult to Dietitian [CONS] Routine Reason for Dietitian: Dietary Consult 11/21/16 05:16 Consult to Physician [CONS] Routine Comment: s/p cardiopulmonary arrest Consulting Provider: Cardiology - [facility] When should Consulting Provider be notified: In am 11/21/16 05:19 Consult to Physician [CONS] Routine Comment: vent management/s/p cardiopulmonary arrest Consulting Provider: Ugo Donohue When should Consulting Provider be notified: In am 11/21/16 07:37 Consult to Physician [CONS] Routine Comment: acute renal failure & s/p Cardiopulmonary arrest Consulting Provider: Se Pulliam When should Consulting Provider be notified: Now Consult to Specialist Group: Nephrology When should Consulting Provider be notified: Now 11/21/16 13:04 Consult to Physician [CONS] Routine Comment: AMS,GI bleed elevated LFT's ? etiology Consulting Provider: Adin Gaona Consulting Provider Notified: Yes Consult to Specialist Group: Gastroenterology Person Notified: Dr. Gray Date Notified: 11/21/16 Time Notified: 12:30 Consult Notification Comment: verbal order was given from Dr. Aiken prior to this order being entered by Dr. Villarreal Discharging clinician: Mitch Bee MD Expected date of discharge: 11/28/16
== END 2016-11-28 13:23 | disposition expired | DRG 917 ==
LOC: N.ED 10:56 → N.EDINP 13:32 → SUATTDRO 13:32 → N.2E 14:26 → N.ICU 22:53
PROVIDERS: ADMIT Internal Medicine; ATTEND Internal Medicine